=== PATIENT | female | born 1935 | race Caucasian/White ===

== ENCOUNTER → 2016-10-11 | Outpatient (CLI) | payer MEDICARE, OTHER ==
[~2016-10-11] MED LIST: ASCO500C14; ASP325TEC; BARIUM SUSPENSION 2.1% (VANILLA SILQ) 450 ML PO ONE; CALC-793; CATHETER FLUSH 10 ML SYR IV PRN; CIPR500S2 PO; DONE5TAB30; ENAL5TAB PO; ERGO400C; IOHEXOL 350 MG/ML 100 ML (OMNIPAQUE 350) VIAL IV ONE; MULT1CAP27 PO; NF-ESOM40C; NFAMINITAB; NFNEB10T; NS 100 ML (IVPB) BAG IV ONE; OMEG1CAP51; SIMV40TA2; SIMV40TA4 PO; SPRN25T
--- OUTSIDE RECORDS SUMMARY | 2016-10-11 07:53 | XMS REPORT | Continuity of Care Document ---
Author Author [facility] Organization [facility] Address Unknown Phone Unavailable Allergies Active Description Code Type Severity Reaction Onset Reported/Identified Relationship to Patient Clinical Status Yes No Known Drug Allergies [id number] Drug Allergy Unknown N/ A 09/21/2008 Medications [...] V76.12 07/27/2014 Ot V10.79 07/27/2014 GENE SESAY SKILLED NURSING FACILITY COUNSELOR Ot 272.4 07/27/2014 GENE SESAY SKILLED NURSING FACILITY COUNSELOR Ot 414.01 07/27/2014 GIOVANNA SPENCER, MATT Pérez [...] V76.12 10/06/2015 Ot V10.79 10/06/2015 GENE SESAY SKILLED NURSING FACILITY COUNSELOR Ot 272.4 10/06/2015 GENE SESAY SKILLED NURSING FACILITY COUNSELOR Ot 414.01 10/06/2015 MATT HEREDIA MD Ot [...] STEINBERG-SMITH PA, DENNIS K Ot 433.10 10/06/2015 STIENBERG-SMITH PA, DENNIS K Ot 272.4 10/06/2015 STEINBERG-SMITH [...] BAL Hollingsworth Ot I10 10/29/2015 NADEGE SPENCER, ABL Hollingsworth Ot I25.10 10/29/2015 NADEGE SPENCER, BAL Hollingsworth Ot I48.0 05/03/2016 DENNIS ERNANDEZ Ot E78.2 MIXED HYPERLIPIDEMIA 05/03/2016 DENNIS ERNANDEZ Ot I10 ESSENTIAL (PRIMARY) HYPERTENSION 05/03/2016 DENNIS ERNANDEZ Ot I25.10 ATHSCL HEART DISEASE OF [place] CORONARY 05/03/2016 DENNIS ERNANDEZ Ot I65.23 OCCLUSION AND STENOSIS OF [place] 05/11/2016 MANISHA MAYFIELD Ot C83.30 DIFFUSE LARGE B-CELL LYMPHOMA, UNSPECIFI 05/24/2016 DENNIS ERNANDEZ Ot E78.2 MIXED HYPERLIPIDEMIA 05/24/2016 DENNIS ERNANDEZ Ot I10 ESSENTIAL (PRIMARY) HYPERTENSION 05/24/2016 DENNIS ERNANDEZ Ot I25.10 ATHSCL HEART DISEASE OF [place] CORONARY 05/24/2016 DENNIS ERNANDEZ Ot I65.23 OCCLUSION [...] MD Ot I25.10 ATHSCL HEART DISEASE OF [place] CORONARY 06/05/2016 BAL LIGHT MD Ot I48.0 PAROXYSMAL ATRIAL FIBRILLATION 06/05/2016 MANISHA MAYFIELD Ot C83.30 DIFFUSE LARGE B-CELL LYMPHOMA, UNSPECIFI 06/05/2016 DENNIS ERNANDEZ Ot E78.2 MIXED HYPERLIPIDEMIA 06/05/2016 DENNIS ERNANDEZ Ot I10 ESSENTIAL (PRIMARY) HYPERTENSION 06/05/2016 DENNIS ERNANDEZ Ot I25.10 ATHSCL HEART DISEASE OF [place] CORONARY 06/05/2016 DENNIS ERNANDEZ Ot I65.23 OCCLUSION AND STENOSIS OF [place] 06/06/2016 DENNIS ERNANDEZ Ot E78.2 MIXED HYPERLIPIDEMIA 06/06/2016 DENNIS ERNANDEZ Ot I10 ESSENTIAL (PRIMARY) HYPERTENSION 06/06/2016 DENNIS ERNANDEZ Ot I25.10 ATHSCL HEART DISEASE OF [place] CORONARY 06/06/2016 DENNIS ERNANDEZ Ot I65.23 OCCLUSION AND STENOSIS OF [place] 06/11/2016 DENNIS ERNANDEZ Ot E78.2 MIXED HYPERLIPIDEMIA 06/11/2016 DENNIS ERNANDEZ Ot I10 ESSENTIAL (PRIMARY) HYPERTENSION 06/11/2016 DENNIS ERNANDEZ Ot I25.10 ATHSCL HEART DISEASE OF [place] CORONARY 06/11/2016 DENNIS ERNANDEZ Ot I65.23 OCCLUSION AND STENOSIS OF [place] 06/12/2016 DENNIS ERNANDEZ Ot E78.2 MIXED HYPERLIPIDEMIA 06/12/2016 DENNIS ERNANDEZ K Ot I10 ESSENTIAL (PRIMARY) HYPERTENSION 06/12/2016 DENNIS ERNANDEZ Ot I25.10 ATHSCL HEART DISEASE OF [place] CORONARY 06/12/2016 DENNIS ERNANDEZ Ot I65.23 OCCLUSION AND STENOSIS OF [place] 06/13/2016 MANISHA MAYFIELD Ot C83.30 DIFFUSE LARGE B-CELL LYMPHOMA, UNSPECIFI 06/27/2016 DENNIS ERNANDEZ Ot E78.2 MIXED HYPERLIPIDEMIA 06/27/2016 DENNIS ERNANDEZ Ot I10 ESSENTIAL (PRIMARY) HYPERTENSION 06/27/2016 DENNIS ERNANDEZ Ot I25.10 ATHSCL HEART DISEASE OF [place] CORONARY 06/27/2016 DENNIS ERNANDEZ Ot I65.23 OCCLUSION [...] ERNANDEZ Ot I25.10 ATHSCL HEART DISEASE OF [place] CORONARY 07/18/2016 DENNIS ERNANDEZ Ot I65.23 OCCLUSION AND STENOSIS OF [place] 07/21/2016 GIOVANNA SPENCER, MATT Pérez Ot R41.3 OTHER AMNESIA 08/15/2016 MATT HEREDIA MD Ot R41.3 OTHER AMNESIA 09/20/2016 MANISHA MAYFIELD Dom Ot C83.30 DIFFUSE LARGE B-CELL LYMPHOMA, UNSPECIFI 09/26/2016 TRAN MANISHA Fernandes Ot C83.30 DIFFUSE LARGE B-CELL LYMPHOMA, UNSPECIFI Procedures Results Encounters ACCT No. Visit Date/Time Discharge Status Pt. Type Provider Facility Loc./Unit Complaint [id number] 04/03/2016 13:39:00 2015 00:01:00 DIS Outpatient MANISHA MAYFIELD [facility] ONC [id number] 10/13/2015 12:26:00 2015 13:44:00 DIS Emergency WESLEY DOMELISSAR L [facility] ER COUGH/COLD SYMPTOMS [id number] 12/09/2014 07:34:00 2014 23:59:59 CLS Outpatient DENNIS ERNANDEZ [facility] LAB HLP [id number] 09/28/2014 07:48:00 2014 23:59:59 CLS Outpatient DENNIS ERNANDEZ [facility] CARD CAD,HTN,HLP [id number] 09/22/2014 08:08:00 2014 23:59:59 CLS Outpatient DENNIS ERNANDEZ [facility] CARD CAD,HTN,HLP [id number] 07/28/2014 07:25:00 2013 23:59:59 CLS Outpatient MATT HEREDIA MD [facility] RAD SCREENING [id number] 12/04/2013 07:26:00 2013 23:59:59 CLS Outpatient DENNIS ERNANDEZ [facility] LAB [id number] 07/22/2013 06:46:00 2012 23:59:59 CLS Outpatient MATT HEREDIA MD [facility] RAD [id number] 12/24/2012 07:24:00 2012 23:59:59 CLS Outpatient SESAY GENE Jhon KING [facility] LAB [id number] 10/04/2016 09:44:00 ACT Outpatient MANISHA MAYFIELD [facility] ONC [id number] 06/30/2016 09:25:00 ACT Outpatient MATT HEREDIA MD [facility] RAD MEMORY DIFFICULTIES [id number] 06/05/2016 07:49:00 ACT Outpatient DENNIS ALVARES [facility] CARD CAD, CAROTID ARTERY DISEASE [id number] 05/02/2016 10:50:00 ACT Outpatient DENNIS ALVARES [facility] CARD CAD,CAROTID ARTERY STENOSIS [id number] 10/06/2015 07:37:00 ACT Outpatient BAL LIGHT MD [facility] LAB AF,CAD,HYPERLIPIDEMIA,HYPERTENSION [id number] 08/02/2015 09:37:00 ACT Outpatient MATT HEREDIA MD [facility] RAD ROUTINE MAMMOGRAM SCREENING [id number] 07/27/2014 11:22:00 Document Registration [id number] 10/25/2012 10:16:00 Document Registration [id number] 06/25/2012 08:41:00 Document Registration [id number] 06/20/2012 07:38:00 Document Registration [id number] 05/02/2012 11:26:00 Document Registration [id number] 12/12/2011 11:32:00 Document Registration [id number] 12/04/2011 09:31:00 Document Registration [id number] 11/21/2011 08:23:00 Document Registration [id number] 10/31/2011 07:46:00 Document Registration [id number] 06/30/2011 06:54:00 Document Registration [id number] 06/02/2011 07:25:00 Document Registration [id number] 05/22/2011 07:13:00 Document Registration [id number] 03/04/2011 09:38:00 Document Registration [id number] 02/24/2011 09:07:00 Document Registration [id number] 02/06/2011 08:15:00 Document Registration [id number] 12/05/2010 07:25:00 Document Registration [id number] 06/10/2010 07:03:00 Document Registration [id number] 05/30/2010 09:25:00 Document Registration [id number] 11/22/2009 08:34:00 Document Registration [id number] 06/14/2009 07:39:00 Document Registration [id number] 05/31/2009 07:52:00 Document Registration [id number] 03/08/2009 08:48:00 Document Registration [id number] 02/25/2009 07:07:00 Document Registration
--- NOTE | 2016-10-11 10:29 | Diagnostic Imaging Report ---
PROCEDURE: CT chest, abdomen, and pelvis with contrast. TECHNIQUE: Multiple contiguous axial images were obtained through the chest, abdomen, and pelvis after the administration of intravenous contrast. INDICATION: Non-Hodgkin's lymphoma. COMPARISON: There are no previous CT chest examinations available for comparison. FINDINGS: The images through the thorax show that the heart is enlarged and that there are coronary artery calcifications. The ascending aorta is prominent but not aneurysmally dilated. The ascending aorta measures 3.7 x 3.9 cm maximum transverse and AP diameters. There is no sign of dissection. There is no defect within the pulmonary arteries to indicate a pulmonary embolus either. There are a few small lymph nodes in each axilla and in the mediastinum. These lymph nodes are not pathologically enlarged. The largest lymph node in the axilla measures approximately 1.5 cm in maximum length. The lungs are clear. There is no sign of failure, pneumonia or pleural effusion. There is no parenchymal lung mass identified either. The thyroid gland was not visualized in its entirety. Where visualized, the thyroid gland is unremarkable. There is no obvious breast mass. The sections through the abdomen and pelvis show that the liver is of lower density than usually seen. This appearance does suggest fatty metamorphosis and the appearance of the liver is similar to the prior CT abdomen/pelvis exam of 03/04/2011. The spleen, pancreas, gallbladder, kidneys, aorta and inferior vena cava are unremarkable for an acute abnormality. As noted on the prior exam, there is a 2 cm cyst along the anterior aspect of the right kidney. There also appear to be a few other smaller cysts in both kidneys. There is also a 1.0 x 1.2 cm area of low density associated with the right adrenal gland. This is unchanged when compared the previous study. The left adrenal gland is unremarkable. The stomach is filled with oral contrast and consequently difficult to assess. The appendix was visualized and does not seem to be abnormally thickened. The uterus is surgically absent. The urinary bladder is grossly unremarkable. The previous exam did note numerous small (1 cm or less) nodes. On this study, there are now a few slightly enlarged periaortic nodes posterior to the infrarenal abdominal aorta on the left. The largest of these nodes measures approximately 0.9 x 1.7 cm. The nose along the pelvic sidewalls also seem more prominent than on the prior exam. Increase in the size of these nodes is worrisome for recurrent malignancy. PET/CT would be recommended for further evaluation. The bone windows show no evidence for a fracture or for destructive lesion. IMPRESSION: 1. There has been an increase in the adenopathy in the periaortic region and along both pelvic sidewalls. These findings are worrisome for recurrent malignancy. PET CT would be recommended for further evaluation. 2. There is no acute abnormality of the chest, abdomen or pelvis. These results were discussed with Dr. Durham. Dictated by: Dictated on workstation # [id number]
== END ==
LOC: RAD 07:49
PROVIDERS: ATTEND Internal Medicine Hematology & Oncology
DX: C82.91 Follicular lymphoma, unspecified, lymph nodes of head, face, and neck (principal)
CPT/HCPCS: 71260; 74177

== ENCOUNTER → 2016-11-20 | Outpatient (CLI) | payer MEDICARE, OTHER ==
[~2016-11-20] MED LIST changes: -BARIUM SUSPENSION 2.1% (VANILLA SILQ) 450 ML PO ONE; -CATHETER FLUSH 10 ML SYR IV PRN; -IOHEXOL 350 MG/ML 100 ML (OMNIPAQUE 350) VIAL IV ONE; -NS 100 ML (IVPB) BAG IV ONE
--- NOTE | 2016-11-20 09:47 | Diagnostic Imaging Report ---
INDICATION: Cough, fatigue. TECHNIQUE: 2-view chest 9:26 AM. CORRELATION STUDY: 10/13/2015. FINDINGS: Heart size borderline enlarged. Tortuous course of the thoracic aorta. Pulmonary vasculature within normal limits. The lungs are clear with no consolidating infiltrate. There is no significant pleural effusion or pneumothorax. Visualized osseous structures are unremarkable. IMPRESSION: No radiographic evidence for acute abnormality of the chest. Dictated by: Dictated on workstation # [id number]
== END ==
LOC: RAD 09:00
PROVIDERS: ATTEND Internal Medicine
DX: R05 Cough (principal); R53.83 Other fatigue
CPT/HCPCS: 71020

== ENCOUNTER 2016-11-27 17:42 | Emergency (ER) | payer MEDICARE, OTHER ==
[~2016-11-27] VITALS: Ht 157.5 cm; Wt 60.8 kg
[~2016-11-27 17:42] MED LIST changes: -DONE5TAB30
[2016-11-27] MEDS ORDERED: DONE5TAB30 (19:38)
[2016-11-27 19:42] VITALS: BP 189/83
[2016-11-27] MEDS ORDERED: MECLIZINE 25 MG (ANTIVERT) TAB PO ONE (19:45)
--- NOTE | 2016-11-27 20:19 | Diagnostic Imaging Report ---
INDICATION: Dizziness and congestion PA and lateral chest obtained at 8:16 p.m. Heart and mediastinal silhouette are normal in appearance. The lungs are clear. There is no pneumothorax or pleural fluid. IMPRESSION: No acute process in the chest. Dictated by: Dictated on workstation # [id number]
[2016-11-27] MEDS ORDERED: NS IV 1000 ML 1,000 ML IV ONE (20:21)
[2016-11-27 20:41] LABS: BASOPHILS % (AUTO) 0 % (0-10); EOSINOPHILS # (AUTO) 0.1 10^3/uL (0.0-0.3); EOSINOPHILS % (AUTO) 0 % (0-10); LYMPHOCYTES % (AUTO) 61 % (12-44); MEAN CORPUSCULAR HEMOGLOBIN 28 PG (25-34); MEAN CORPUSCULAR HGB CONC 34 G/DL (32-36); MEAN CORPUSCULAR VOLUME 84 FL (80-99); MEAN PLATELET VOLUME 11.7 FL (7.4-10.4); MONOCYTES # (AUTO) 0.5 X 10^3 (0.0-1.0); MONOCYTES % (AUTO) 3 % (0-12); NEUTROPHILS # (AUTO) 5.9 X 10^3 (1.8-7.8); NEUTROPHILS % (AUTO) 36 % (42-75); RED BLOOD COUNT 4.33 10^6/uL (4.35-5.85); WHITE BLOOD COUNT 16.4 10^3/uL (4.3-11.0)
--- NOTE | 2016-11-27 20:42 | ED Neurological Problem ---
General Chief Complaint: Dizziness/Syncope Stated Complaint: CONGESTION,DIZZINESS Nursing Triage Note: PT HERE WITH C/O DIZZINESS AND CONGESTION THAT STATRED TODAY. PT HAS HAD PNA FOR 2 WEEKS AND HAS BEEN TREATED THE PAST 2 WEEKS. PT REPORTS TAKING HER DONEPEZIL AT THE WRONG TIME TODAY AND THINKS THIS IS WHAT HER PROBLEM IS. Nursing Sepsis Screen: No Definite Risk Source: patient, family (son) Exam Limitations: no limitations History of Present Illness Time seen by provider: 20:15 Initial Comments 81-year-old female patient presents to the emergency department with complaints of dizziness beginning earlier today. Patient reportedly took her Aricept this a.m. instead of at bed time. Also complains of chest congestion. States she has been treated with 2 different antibiotics over the last 2 weeks for pneumonia. Was seen by Dr. Caldwell earlier today for pneumonia follow-up. Was doing much better today until taking her aricept. Timing/Duration: other (8-10 hours) Allergies and Home Medications Allergies Coded Allergies: No Known Drug Allergies (Verified , 09/21/08) Home Medications Aspirin 325 Mg Tabec, (Reported) Calcium/Vitamin D 1 Tab Tablet, (Reported) Cholecalciferol 400 Unit Capsule, (Reported) Donepezil HCl 5 Mg Tablet, #30 (Reported) Enalapril Maleate 5 Mg Tablet, 5 MG PO DAILY, (Reported) Esomeprazole Mag Trihydrate 40 Mg Capsule., (Reported) Multivitamins 1 Each Capsule, 1 EACH PO DAILY, (Reported) Nebivolol Hcl 10 Mg Tablet, (Reported) Tyler-3 Fatty Acids/Fish Oil 1 Each Capsule, (Reported) Simvastatin 40 Mg Tablet, (Reported) Spironolactone 25 Mg Tablet, (Reported) Constitutional: No chills, No diaphoresis, dizziness, No fever, No malaise, No weakness Eyes: No Symptoms Reported Ears, Nose, Mouth, Throat: denies ear pain (patient does c/o tinnitus.), denies ear discharge, denies nose pain, denies nose discharge, denies mouth pain , denies throat pain Respiratory: cough, No dyspnea on exertion, No orthopnea, phlegm, No short of breath, No wheezing Cardiovascular: No chest pain, No palpitations, No syncope Gastrointestinal: No abdominal pain, No diarrhea, No nausea, No vomiting Genitourinary: no symptoms reported Musculoskeletal: no symptoms reported Skin: no symptoms reported Psychiatric/Neurological: Denies Cognitive Dysfunction, Denies Headache, Denies Numbness, Denies [place] Seizures, Denies Tingling, Denies Tonic Clonic Seizures, Denies Unable to Move Lower Ext, Denies Unable to Move Upper Ext, Denies Weakness All Other Systems Reviewed Negative Unless Noted: Yes (Negative excepted noted.) Past Dmofyaj-Byeczh-Owgxzu Hx Patient Social History Alcohol Use: Denies Use Recreational Drug Use: No Smoking Status: Never a Smoker 2nd Hand Smoke Exposure: No Recent Foreign Travel: No Contact w/Someone Who Travel: No Recent Infectious Disease Expo: No Recent Hopitalizations: No Seasonal Allergies Seasonal Allergies: No Surgeries HX Surgeries: Yes (LYMPHOMA CA 2004) Respiratory Hx Respiratory Disorders: Yes Respiratory Disorders: Pneumonia Cardiovascular Hx Cardiac Disorders: Yes Cardiac Disorders: High Cholesterol, Hypertension Neurological Hx Neurological Disorders: Yes Neurological Disorders: Dementia Reproductive System Hx Reproductive Disorders: Yes (CYSTOCELE, UTEROVAGINAL PROLAPSE) Genitourinary Hx Genitourinary Disorders: Yes (CYSTOCELE, UTEROVAGINAL PROLAPSE) Gastrointestinal Hx Gastrointestinal Disorders: Yes Gastrointestinal Disorders: Gastroesophageal Reflux Musculoskeletal Hx Musculoskeletal Disorders: No Endocrine Hx Endocrine Disorders: No HEENT HX ENT Disorders: Yes Cancer Hx Cancer: Yes Cancer: Lymphoma Psychosocial Hx Psychiatric Problems: No Blood Transfusions Hx Blood Disorders: No Reviewed Nursing Assessment Reviewed/Agree w Nursing PMH: Yes Family Medical History Significant Family History: No Pertinent Family Hx Physical Exam Vital Signs Capillary Refill : Less Than 3 Seconds General Appearance: WD/WN, no apparent distress HEENT: PERRL/EOMI, normal ENT inspection, TMs normal, pharynx normal Neck: supple, normal inspection Respiratory: lungs clear, normal breath sounds, no respiratory distress Cardiovascular: normal peripheral pulses, no edema, no murmur, bradycardia Gastrointestinal: normal bowel sounds, non tender, soft, No distended Back: normal inspection Extremities: no pedal edema, normal capillary refill Neurologic/Psychiatric: cloud 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 architect II-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 nml as tested, no motor/sensory deficits, alert, normal mood/affect, oriented x 3 Crainal Nerves: normal hearing, normal speech, PERRL Coordination/Gait: normal finger to nose, normal gait, negative Romberg's sign Motor/Sensory: no motor deficit, no sensory deficit, no pronator drift Skin: normal color, warm/dry Progress/Results/Core Measures Results/Orders Lab Results Laboratory Tests Test 11/27/16 20:30 11/27/16 21:26 Range/Units White Blood Count 16.4 H 4.3-11.0 10^3/uL Red Blood Count 4.33 L 4.35-5.85 10^6/uL Hemoglobin 12.2 11.5-16.0 G/DL Hematocrit 36 35-52 % Mean Corpuscular Volume 84 80-99 FL Mean Corpuscular Hemoglobin 28 25-34 PG Mean Corpuscular Hemoglobin Concent 34 32-36 G/DL Red Cell Distribution Width 13.0 10.0-14.5 % Platelet Count 37 *L 130-400 10^3/uL Mean Platelet Volume 11.7 H 7.4-10.4 FL Neutrophils (%) (Auto) 36 L 42-75 % Lymphocytes (%) (Auto) 61 H 12-44 % Monocytes (%) (Auto) 3 0-12 % Eosinophils (%) (Auto) 0 0-10 % Basophils (%) (Auto) 0 0-10 % Neutrophils # (Auto) 5.9 1.8-7.8 X 10^3 Lymphocytes # (Auto) 10.0 H 1.0-4.0 X 10^3 Monocytes # (Auto) 0.5 0.0-1.0 X 10^3 Eosinophils # (Auto) 0.1 0.0-0.3 10^3/uL Basophils # (Auto) 0.0 0.0-0.1 10^3/uL Sodium Level 129 L 135-145 MMOL/L Potassium Level 4.1 3.6-5.0 MMOL/L Chloride Level 93 L 98-107 MMOL/L Carbon Dioxide Level 22 21-32 MMOL/L Anion Gap 14 5-14 MMOL/L Blood Urea Nitrogen 14 7-18 MG/DL Creatinine 0.83 0.60-1.30 MG/DL Estimat Glomerular Filtration Rate > 60 BUN/Creatinine Ratio 17 Glucose Level 100 70-105 MG/DL Calcium Level 8.8 8.5-10.1 MG/DL Magnesium Level 1.9 1.8-2.4 MG/DL Total Bilirubin 1.0 0.1-1.0 MG/DL Aspartate Amino Transf (AST/SGOT) 17 5-34 U/L Alanine Aminotransferase (ALT/SGPT) 11 0-55 U/L Alkaline Phosphatase 58 40-136 U/L Troponin I < 0.30 <0.30 NG/ML Total Protein 6.7 6.4-8.2 G/DL Albumin 4.3 3.2-4.5 G/DL TSH [place] Testing 1.15 0.35-4.94 UIU/ML Urine Color YELLOW Urine Clarity CLEAR Urine pH 7 5-9 Urine Specific [place] 1.005 L 1.016-1.022 Urine Protein NEGATIVE NEGATIVE Urine Glucose (UA) NEGATIVE NEGATIVE Urine Ketones NEGATIVE NEGATIVE Urine Nitrite NEGATIVE NEGATIVE Urine Bilirubin NEGATIVE NEGATIVE Urine Urobilinogen NORMAL NORMAL MG/DL Urine Leukocyte Esterase 1+ H NEGATIVE Urine RBC (Auto) 1+ H NEGATIVE Urine RBC 2-5 H /HPF Urine WBC RARE /HPF Urine Squamous Epithelial Cells 2-5 /HPF Urine Crystals NONE /LPF Urine Bacteria NEGATIVE /HPF Urine Casts NONE /LPF Urine Mucus NEGATIVE /LPF Urine Culture Indicated NO My Orders Orders - TONY VILLANUEVA PA Meclizine Tablet (Antivert Tablet) (11/27/16 19:45) Chest Pa/Lat (2 View) (11/27/16 19:43) Saline Lock/Iv-Start (11/27/16 20:21) Ekg Tracing (11/27/16 20:21) Ct Head Wo (11/27/16 20:21) Cbc With Automated Diff (11/27/16 20:21) Comprehensive Metabolic Panel (11/27/16 20:21) Magnesium (11/27/16 20:21) Thyroid Analyzer (11/27/16 20:21) Troponin I (11/27/16 20:21) Ua Culture If Indicated (11/27/16 20:21) Ns Iv 1000 Ml (Sodium Chloride 0.9%) (11/27/16 20:21) Medications Given in ED Vital Signs/I&O Blood Pressure Mean: 118 Diagnostic Imaging Diagonstic Imaging: CT Plain Films/CT/US/NM/MRI: head Comments INDICATION: Dizziness Noncontrast brain CT is performed and compared to . There were no extra-axial fluid collections. There is mild atrophic change. There is no acute intracranial hemorrhage or mass effect or midline shift. Ventricles are normal in size for age. There is no focal parenchymal abnormality in the brain. Calvarial windows were unremarkable. Visualized portions of the mastoid air cells and sinuses were clear. IMPRESSION: Mild atrophic change with no acute intracranial abnormality. Dictated on workstation # [id number] Reviewed: Reviewed by Me (radiology report reviewed by me) Diagonstic Imaging: Xray Plain Films/CT/US/NM/MRI: chest Comments INDICATION: Dizziness and congestion PA and lateral chest obtained at 8:16 p.m. Heart and mediastinal silhouette are normal in appearance. The lungs are clear. There is no pneumothorax or pleural fluid. IMPRESSION: No acute process in the chest. Dictated on workstation # [id number] Reviewed: Reviewed by Me (radiology report reviewed by me. ) Departure Communication Progress Notes 2211 Patient case discussed with Dr. Durham. Recommends repeating CBC on with f/u in his office as previously scheduled. 2214 all laboratory findings, diagnostic study findings, and recommendations by Dr. Durham discussed with the patient and family. Plan for discharge to home. Patient instructed to follow-up with Dr. Caldwell's office as an outpatient for recheck. Patient given an outpatient order for repeat lab testing on . All return precautions were discussed with the patient and son as described in the discharge instructions of this report. Both voice understanding and agree with the treatment plan. Impression Impression: Primary Impression: Medication adverse effect Disposition: 01 HOME, SELF-CARE Condition: Improved Departure-Patient Inst. Decision time for Depature: 22:13 Referrals: MANISHA MAYFIELD JOHN D MD (PCP/Family) Primary Care Physician Patient Instructions: Taking Medicines When You're Older, Vertigo (a Type of Dizziness) (DC) Add. Discharge Instructions: All discharge instructions reviewed with patient and/or family. Voiced understanding. Hold Aricept x1 wk. Repeat labs on November 30. He may go to the cancer Center for her lab draw. Follow-up with Dr. Caldwell for recheck. Drink plenty of fluids. Return immediately to the emergency department for worsened dizziness, headache , changes in vision, slurred speech, changes in behavior, shortness of air, chest pain, seizure, vomiting, or any other concerns. TONY VILLANUEVA Nov 27, 2016 20:42
[2016-11-27 20:45] LABS: PLATELET COUNT 37 10^3/uL (130-400)
--- NOTE | 2016-11-27 20:51 | Diagnostic Imaging Report ---
INDICATION: Dizziness Noncontrast brain CT is performed and compared to 06/30/16. There were no extra-axial fluid collections. There is mild atrophic change. There is no acute intracranial hemorrhage or mass effect or midline shift. Ventricles are normal in size for age. There is no focal parenchymal abnormality in the brain. Calvarial windows were unremarkable. Visualized portions of the mastoid air cells and sinuses were clear. IMPRESSION: Mild atrophic change with no acute intracranial abnormality. Dictated by: Dictated on workstation # [id number]
[2016-11-27 21:07] LABS: ALANINE AMINOTRANSFERASE 11 U/L (0-55); ALBUMIN 4.3 G/DL (3.2-4.5); ANION GAP 14 MMOL/L (5-14); ASPARTATE AMINO TRANSFERASE 17 U/L (5-34); BLOOD UREA NITROGEN 14 MG/DL (7-18); BUN/CREATININE RATIO 17; CALCIUM 8.8 MG/DL (8.5-10.1); CARBON DIOXIDE 22 MMOL/L (21-32); CHLORIDE 93 MMOL/L (98-107); CREATININE SERUM 0.83 MG/DL (0.60-1.30); GFR ESTIMATED > 60; GLUCOSE 100 MG/DL (70-105); MAGNESIUM 1.9 MG/DL (1.8-2.4); POTASSIUM 4.1 MMOL/L (3.6-5.0); SODIUM 129 MMOL/L (135-145); TOTAL PROTEIN 6.7 G/DL (6.4-8.2)
[2016-11-27 21:21] VITALS: BP 141/78
[2016-11-27 21:27] LABS: TROPONIN I < 0.30 NG/ML (<0.30)
[2016-11-27 21:35] LABS: BILIRUBIN,URINE NEGATIVE (NEGATIVE); KETONES,URINE NEGATIVE (NEGATIVE); LEUKOCYTE ESTERASE ,URINE 1+ (NEGATIVE); NITRITE,URINE NEGATIVE (NEGATIVE); PH,URINE 7 (5-9); PROTEIN,URINE NEGATIVE (NEGATIVE); UROBILINOGEN,URINE NORMAL (NORMAL)
[2016-11-27 21:50] LABS: WBC,URINE RARE /HPF
[2016-11-27 22:56] VITALS: BP 140/75
== END 2016-11-27 22:57 | disposition home or self-care (01) ==
LOC: EDUNIT# 17:42 → ER 17:44
DX: R42 Dizziness and giddiness (principal); T88.7XXA Unspecified adverse effect of drug or medicament, initial encounter; I10 Essential (primary) hypertension; Z79.82 Long term (current) use of aspirin; Z79.899 Other long term (current) drug therapy
CPT/HCPCS: 36415; 70450; 71020; 80053; 81000; 83735; 84443; 84484; 85025; 85027; 93005; 96360

== ENCOUNTER 2016-12-18 08:08 | Outpatient (RCR) | payer MEDICARE, OTHER ==
--- OUTSIDE RECORDS SUMMARY | 2016-09-25 12:44 | XMS REPORT | Continuity of Care Document ---
Author Author [facility] Organization [facility] Address Unknown Phone Unavailable Allergies Active Description Code Type Severity Reaction Onset Reported/Identified Relationship to Patient Clinical Status Yes No Known Drug Allergies [id number] Drug Allergy Unknown N/ A 09/21/2008 Medications Problems Date Dx Coded Attending Type Code Diagnosis Diagnosed By 02/06/2011 Ot 530.81 02/06/2011 Ot 530.85 02/06/2011 Ot 553.3 02/06/2011 Ot V58.69 02/06/2011 Ot V76.51 03/04/2011 Ot 789.04 07/27/2014 Ot V49.81 07/27/2014 Ot V82.81 07/27/2014 Ot 272.4 07/27/2014 Ot 272.4 07/27/2014 Ot 401.9 07/27/2014 Ot 414.01 07/27/2014 Ot 433.10 07/27/2014 Ot V76.12 07/27/2014 Ot 272.4 07/27/2014 Ot V76.12 07/27/2014 Ot 272.4 07/27/2014 Ot 401.9 07/27/2014 Ot 414.01 07/27/2014 Ot 272.4 07/27/2014 Ot 401.9 07/27/2014 Ot 414.01 07/27/2014 Ot V10.71 07/27/2014 Ot V76.12 07/27/2014 Ot 272.4 07/27/2014 Ot V10.71 07/27/2014 Ot V10.71 07/27/2014 Ot 272.4 07/27/2014 Ot 401.9 07/27/2014 Ot 414.01 07/27/2014 Ot 397.0 07/27/2014 Ot 401.9 07/27/2014 Ot 414.00 07/27/2014 Ot 424.0 07/27/2014 Ot V10.71 07/27/2014 Ot 272.4 07/27/2014 Ot 414.00 07/27/2014 Ot V76.12 07/27/2014 Ot V10.79 07/27/2014 GENE SESAY RAIL SPLITTER Ot 272.4 07/27/2014 GENE SESAY RAIL SPLITTER Ot 414.01 07/27/2014 GIOVANNA SPENCER, MATT Pérez Ot V76.12 07/27/2014 STEINBERG-SMITH PA, DENNIS K Ot 202.80 07/27/2014 STEINBERG-SMITH PA, DENNIS K Ot 272.4 07/27/2014 STEINBERG-SMITH PA, DENNIS K Ot 401.9 07/27/2014 STEINBERG-SMITH PA, DENNIS K Ot 414.00 07/27/2014 STEINBERG-SMITH PA, DENNIS K Ot 427.31 07/27/2014 STEINBERG-SMITH PA, DENNIS K Ot 433.10 07/27/2014 STEINBERG-SMITH PA, DENNIS K Ot 530.85 08/19/2014 GIOVANNA SPENCER, MATT Pérez Ot V76.12 09/22/2014 GIOVANNA SPENCER, MATT Pérez Ot V76.12 09/29/2014 STEINBERG-SMITH PA, DENNIS K Ot 272.4 09/29/2014 STEINBERG-SMITH PA, DENNIS K Ot 401.9 09/29/2014 STEINBERG-SMITH PA, DENNIS K Ot 414.00 09/29/2014 STEINBERG-SMITH PA, DENNIS K Ot 433.10 10/14/2014 STEINBERG-SMITH PA, DENNIS K Ot 272.4 10/14/2014 STEINBERG-SMITH PA, DENNIS K Ot 401.9 10/14/2014 STEINBERG-SMITH PA, DENNIS K Ot 414.00 10/14/2014 STEINBERG-SMITH PA, DENNIS K Ot 433.10 11/13/2014 STEINBERG-SMITH PA, DENNIS K Ot 272.4 11/13/2014 STEINBERG-SMITH PA, DENNIS K Ot 401.9 11/13/2014 STEINBERG-SMITH PA, DENNIS K Ot 414.00 11/13/2014 STEINBERG-SMITH PA, DENNIS K Ot 433.10 01/08/2015 STEINBERG-SMITH PA, DENNIS K Ot 272.4 08/25/2015 GIOVANNA SPENCER, MATT Pérez Ot Z12.31 10/06/2015 Ot V76.12 10/06/2015 Ot 272.4 10/06/2015 Ot 401.9 10/06/2015 Ot 414.01 10/06/2015 Ot 272.4 10/06/2015 Ot 401.9 10/06/2015 Ot 414.01 10/06/2015 Ot V10.71 10/06/2015 Ot V76.12 10/06/2015 Ot 272.4 10/06/2015 Ot V10.71 10/06/2015 Ot V10.71 10/06/2015 Ot 272.4 10/06/2015 Ot 401.9 10/06/2015 Ot 414.01 10/06/2015 Ot 397.0 10/06/2015 Ot 401.9 10/06/2015 Ot 414.00 10/06/2015 Ot 424.0 10/06/2015 Ot V10.71 10/06/2015 Ot 272.4 10/06/2015 Ot 414.00 10/06/2015 Ot V76.12 10/06/2015 Ot V10.79 10/06/2015 GENE SESAY RAIL SPLITTER Ot 272.4 10/06/2015 GENE SESAY RAIL SPLITTER Ot 414.01 10/06/2015 MATT HEREDIA MD Ot V76.12 10/06/2015 ADE PA, DENNIS K Ot 202.80 10/06/2015 ADE PA, DENNIS K Ot 272.4 10/06/2015 ADE PA, DENNIS K Ot 401.9 10/06/2015 STEINBERG-SMITH PA, DENNIS K Ot 414.00 10/06/2015 ADE PA, DENNIS K Ot 427.31 10/06/2015 STEINBERG-SMITH PA, DENNIS K Ot 433.10 10/06/2015 STEINBERG-SMITH PA, DENNIS K Ot 530.85 10/06/2015 STEINBERG-SMITH PA, DENNIS K Ot 272.4 10/06/2015 STEINBERG-SMITH PA, DENNIS K Ot 401.9 10/06/2015 STEINBERG-SMITH PA, DENNIS K Ot 414.00 10/06/2015 STEINBERG-SMITH PA, DENNIS K Ot 433.10 10/06/2015 STEINBERG-SMITH PA, DENNIS K Ot 272.4 10/06/2015 STEINBERG-SMITH PA, DENNIS K Ot 401.9 10/06/2015 DENNIS ERNANDEZ Ot 414.00 10/06/2015 DENNIS ERNANDEZ Ot 433.10 10/06/2015 GIOVANNA SPENCER, MATT Pérez Ot V76.12 10/06/2015 DENNIS ERNANDEZ Ot 272.4 10/06/2015 GIOVANNA SPENCER, MATT Pérez Ot Z12.31 10/13/2015 JESSICA WESLEY DO Ot R09.1 PLEURISY 10/29/2015 NADEGE SPENCER, BAL Hollingsworth Ot E78.5 10/29/2015 NADEGE SPENCER, BAL Hollingsworth Ot I10 10/29/2015 NADEGE SPENCER, BAL Hollingsworth Ot I25.10 10/29/2015 NADEGE SPENCER, BAL Hollingsworth Ot I48.0 05/03/2016 DENNIS ERNANDEZ Ot E78.2 MIXED HYPERLIPIDEMIA 05/03/2016 DENNIS ERNANDEZ Ot I10 ESSENTIAL (PRIMARY) HYPERTENSION 05/03/2016 DENNIS ERNANDEZ Ot I25.10 ATHSCL HEART DISEASE OF [place] CORONARY 05/03/2016 DENNIS ERNANDEZ Ot I65.23 OCCLUSION AND STENOSIS OF [place] 05/11/2016 MANISHA MAYFIELD Ot C83.30 DIFFUSE LARGE B-CELL LYMPHOMA, UNSPECIFI 05/24/2016 DENNIS ERNANDEZ Ot E78.2 MIXED HYPERLIPIDEMIA 05/24/2016 DENNIS ERNANDEZ Ot I10 ESSENTIAL (PRIMARY) HYPERTENSION 05/24/2016 DENNIS ERNANDEZ Ot I25.10 ATHSCL HEART DISEASE OF [place] CORONARY 05/24/2016 DENNIS ERNANDEZ Ot I65.23 OCCLUSION AND STENOSIS OF [place] 06/05/2016 DENNIS ERNANDEZ Ot 272.4 HYPERLIPIDEMIA NEC/NOS 06/05/2016 DENNIS ERNANDEZ Ot 401.9 HYPERTENSION NOS 06/05/2016 DENNIS ERNANDEZ Ot 414.00 CORON ATHEROSCLER NOS TYPE VESSEL, NATIV 06/05/2016 DENNIS ERNANDEZ Ot 433.10 CAROTID ARTERY OCCLUSION W O CEREBRAL IN 06/05/2016 DENNIS ERNANDEZ Ot 272.4 HYPERLIPIDEMIA NEC/NOS 06/05/2016 DENNIS ERNANDEZ Ot 401.9 HYPERTENSION NOS 06/05/2016 DENNIS ERNANDEZ Ot 414.00 CORON ATHEROSCLER NOS TYPE VESSEL, NATIV 06/05/2016 DENNIS ERNANDEZ Ot 433.10 CAROTID ARTERY OCCLUSION W O CEREBRAL IN 06/05/2016 GIOVANNA SPENCER, MATT Pérez Ot V76.12 OTH SCREEN MAMMO-MALIGN NEOPLASM OF [place] 06/05/2016 DENNIS ERNANDEZ Ot 272.4 HYPERLIPIDEMIA NEC/NOS 06/05/2016 MATT HEREDIA MD Ot Z12.31 ENCNTR SCREEN MAMMOGRAM FOR MALIGNANT NE 06/05/2016 BAL LIGHT MD Ot E78.5 HYPERLIPIDEMIA, UNSPECIFIED 06/05/2016 BAL LIGHT MD Ot I10 ESSENTIAL (PRIMARY) HYPERTENSION 06/05/2016 BAL LIGHT MD Ot I25.10 ATHSCL HEART DISEASE OF [place] CORONARY 06/05/2016 BAL LIGHT MD Ot I48.0 PAROXYSMAL ATRIAL FIBRILLATION 06/05/2016 MANISHA MAYFIELD Ot C83.30 DIFFUSE LARGE B-CELL LYMPHOMA, UNSPECIFI 06/05/2016 DENNIS ERNANDEZ Ot E78.2 MIXED HYPERLIPIDEMIA 06/05/2016 DENNIS ERNANDEZ Ot I10 ESSENTIAL (PRIMARY) HYPERTENSION 06/05/2016 DENNIS ERNANDEZ Ot I25.10 ATHSCL HEART DISEASE OF [place] CORONARY 06/05/2016 DENNIS ERNANDEZ Ot I65.23 OCCLUSION AND STENOSIS OF [place] 06/06/2016 DENNIS ERNANDEZ Ot E78.2 MIXED HYPERLIPIDEMIA 06/06/2016 DENNIS ERNANDEZ Ot I10 ESSENTIAL (PRIMARY) HYPERTENSION 06/06/2016 DENNIS ERNANDEZ Ot I25.10 ATHSCL HEART DISEASE OF [place] CORONARY 06/06/2016 DENNIS ERNANDEZ Ot I65.23 OCCLUSION AND STENOSIS OF [place] 06/11/2016 DENNIS ERNANDEZ Ot E78.2 MIXED HYPERLIPIDEMIA 06/11/2016 DENNIS ERNANDEZ Ot I10 ESSENTIAL (PRIMARY) HYPERTENSION 06/11/2016 DENNIS ERNANDEZ Ot I25.10 ATHSCL HEART DISEASE OF [place] CORONARY 06/11/2016 DENNIS ERNANDEZ Ot I65.23 OCCLUSION AND STENOSIS OF [place] 06/12/2016 DENNIS ERNANDEZ Ot E78.2 MIXED HYPERLIPIDEMIA 06/12/2016 DENNIS ERNANDEZ K Ot I10 ESSENTIAL (PRIMARY) HYPERTENSION 06/12/2016 DENNIS ERNANDEZ Ot I25.10 ATHSCL HEART DISEASE OF [place] CORONARY 06/12/2016 DENNIS ERNANDEZ Ot I65.23 OCCLUSION AND STENOSIS OF [place] 06/13/2016 MANISHA MAYFIELD Ot C83.30 DIFFUSE LARGE B-CELL LYMPHOMA, UNSPECIFI 06/27/2016 DENNIS ERNANDEZ Ot E78.2 MIXED HYPERLIPIDEMIA 06/27/2016 DENNIS ERNANDEZ Ot I10 ESSENTIAL (PRIMARY) HYPERTENSION 06/27/2016 DENNIS ERNANDEZ Ot I25.10 ATHSCL HEART DISEASE OF [place] CORONARY 06/27/2016 DENNIS ERNANDEZ Ot I65.23 OCCLUSION AND STENOSIS OF [place] 06/30/2016 GIOVANNA SPENCER, MATT Pérez Ot R41.3 OTHER AMNESIA 06/30/2016 GIOVANNA SPENCER, MATT Pérez Ot R41.3 OTHER AMNESIA 07/02/2016 MANISHA MAYFIELD Ot C83.30 DIFFUSE LARGE B-CELL LYMPHOMA, UNSPECIFI 07/03/2016 MANISHA MAYFIELD Ot C83.30 DIFFUSE LARGE B-CELL LYMPHOMA, UNSPECIFI 07/03/2016 GIOVANNA SPENCER, MATT Pérez Ot R41.3 OTHER AMNESIA 07/06/2016 GIOVANNA SPENCER, MATT Pérez Ot R41.3 OTHER AMNESIA 07/18/2016 DENNIS ERNANDEZ Ot E78.2 MIXED HYPERLIPIDEMIA 07/18/2016 DENNIS ERNANDEZ K Ot I10 ESSENTIAL (PRIMARY) HYPERTENSION 07/18/2016 DENNIS ERNANDEZ Ot I25.10 ATHSCL HEART DISEASE OF [place] CORONARY 07/18/2016 DENNIS ERNANDEZ Ot I65.23 OCCLUSION AND STENOSIS OF [place] 07/21/2016 GIOVANNA SPENCER, MATT Pérez Ot R41.3 OTHER AMNESIA 08/15/2016 MATT HEREDIA MD Ot R41.3 OTHER AMNESIA 09/20/2016 MANISHA MAYFIELD Dom Ot C83.30 DIFFUSE LARGE B-CELL LYMPHOMA, UNSPECIFI Procedures Results Encounters ACCT No. Visit Date/Time Discharge Status Pt. Type Provider Facility Loc./Unit Complaint [id number] 04/03/2016 13:39:00 2015 00:01:00 DIS Outpatient MANISHA MAYFIELD [facility] ONC [id number] 10/13/2015 12:26:00 2015 13:44:00 DIS Emergency WESLEY JESSICA ESCALANTE [facility] ER COUGH/COLD SYMPTOMS [id number] 12/09/2014 07:34:00 2014 23:59:59 CLS Outpatient DENNIS ERNANDEZ [facility] LAB HLP [id number] 09/28/2014 07:48:00 2014 23:59:59 CLS Outpatient DENNIS ERNANDEZ [facility] CARD CAD,HTN,HLP [id number] 09/22/2014 08:08:00 2014 23:59:59 CLS Outpatient DENNIS ERNANDEZ [facility] CARD CAD,HTN,HLP [id number] 07/28/2014 07:25:00 2013 23:59:59 CLS Outpatient MATT HEREDIA MD [facility] RAD SCREENING [id number] 12/04/2013 07:26:00 2013 23:59:59 CLS Outpatient DENNIS ERNANDEZ [facility] LAB [id number] 07/22/2013 06:46:00 2012 23:59:59 CLS Outpatient MATT HEREDIA MD [facility] RAD [id number] 12/24/2012 07:24:00 2012 23:59:59 CLS Outpatient GENE SESAYP [facility] LAB [id number] 07/03/2016 00:09:00 PEN Preadmit MANISHA MAYFIELD [facility] ONC [id number] 06/30/2016 09:25:00 ACT Outpatient MATT HEREDIA MD [facility] RAD MEMORY DIFFICULTIES [id number] 06/05/2016 07:49:00 ACT Outpatient DENNIS ALVARES [facility] CARD CAD, CAROTID ARTERY DISEASE [id number] 05/02/2016 10:50:00 ACT Outpatient DENNIS ALVARES [facility] CARD CAD,CAROTID ARTERY STENOSIS [id number] 10/06/2015 07:37:00 ACT Outpatient NADEGE SPENCER, BAL Hollingsworth [facility] LAB AF,CAD,HYPERLIPIDEMIA,HYPERTENSION [id number] 08/02/2015 09:37:00 ACT Outpatient MATT HEREDIA MD [facility] RAD ROUTINE MAMMOGRAM SCREENING [id number] 07/27/2014 11:22:00 Document Registration [id number] 10/25/2012 10:16:00 Document Registration [id number] 06/25/2012 08:41:00 Document Registration [id number] 06/20/2012 07:38:00 Document Registration [id number] 05/02/2012 11:26:00 Document Registration [id number] 12/12/2011 11:32:00 Document Registration [id number] 12/04/2011 09:31:00 Document Registration [id number] 11/21/2011 08:23:00 Document Registration [id number] 10/31/2011 07:46:00 Document Registration [id number] 06/30/2011 06:54:00 Document Registration [id number] 06/02/2011 07:25:00 Document Registration [id number] 05/22/2011 07:13:00 Document Registration [id number] 03/04/2011 09:38:00 Document Registration [id number] 02/24/2011 09:07:00 Document Registration [id number] 02/06/2011 08:15:00 Document Registration [id number] 12/05/2010 07:25:00 Document Registration [id number] 06/10/2010 07:03:00 Document Registration [id number] 05/30/2010 09:25:00 Document Registration [id number] 11/22/2009 08:34:00 Document Registration [id number] 06/14/2009 07:39:00 Document Registration [id number] 05/31/2009 07:52:00 Document Registration [id number] 03/08/2009 08:48:00 Document Registration [id number] 02/25/2009 07:07:00 Document Registration
[2016-09-25 13:18] LABS: BASOPHILS % (AUTO) 0 % (0-10); EOSINOPHILS # (AUTO) 0.1 10^3/uL (0.0-0.3); EOSINOPHILS % (AUTO) 1 % (0-10); LYMPHOCYTES # (AUTO) 4.4 X 10^3 (1.0-4.0); LYMPHOCYTES % (AUTO) 52 % (12-44); MEAN CORPUSCULAR HEMOGLOBIN 28 PG (25-34); MEAN CORPUSCULAR HGB CONC 33 G/DL (32-36); MEAN CORPUSCULAR VOLUME 86 FL (80-99); MEAN PLATELET VOLUME 10.2 FL (7.4-10.4); MONOCYTES # (AUTO) 0.5 X 10^3 (0.0-1.0); MONOCYTES % (AUTO) 6 % (0-12); NEUTROPHILS # (AUTO) 3.5 X 10^3 (1.8-7.8); NEUTROPHILS % (AUTO) 41 % (42-75); RED BLOOD COUNT 4.47 10^6/uL (4.35-5.85); RED CELL DISTRIBUTION WIDTH 13.5 % (10.0-14.5); WHITE BLOOD COUNT 8.5 10^3/uL (4.3-11.0)
[2016-09-25 13:19] LABS: PLATELET COUNT 33 10^3/uL (130-400)
[2016-09-25 13:46] LABS: ALBUMIN 4.3 G/DL (3.2-4.5); BILIRUBIN,TOTAL 0.6 MG/DL (0.1-1.0); CALCIUM 9.1 MG/DL (8.5-10.1); CREATININE SERUM 0.97 MG/DL (0.60-1.30); POTASSIUM 4.2 MMOL/L (3.6-5.0); TOTAL PROTEIN 6.9 G/DL (6.4-8.2)
[2016-10-03 11:47] LABS: BASOPHILS % (AUTO) 0 % (0-10); EOSINOPHILS # (AUTO) 0.1 10^3/uL (0.0-0.3); EOSINOPHILS % (AUTO) 1 % (0-10); LYMPHOCYTES # (AUTO) 4.5 X 10^3 (1.0-4.0); LYMPHOCYTES % (AUTO) 55 % (12-44); MEAN CORPUSCULAR HEMOGLOBIN 28 PG (25-34); MEAN CORPUSCULAR HGB CONC 33 G/DL (32-36); MEAN CORPUSCULAR VOLUME 86 FL (80-99); MEAN PLATELET VOLUME 11.4 FL (7.4-10.4); MONOCYTES # (AUTO) 0.4 X 10^3 (0.0-1.0); MONOCYTES % (AUTO) 4 % (0-12); NEUTROPHILS # (AUTO) 3.2 X 10^3 (1.8-7.8); NEUTROPHILS % (AUTO) 39 % (42-75); PLATELET COUNT 24 10^3/uL (130-400); RED BLOOD COUNT 4.29 10^6/uL (4.35-5.85); RED CELL DISTRIBUTION WIDTH 13.3 % (10.0-14.5); WHITE BLOOD COUNT 8.2 10^3/uL (4.3-11.0)
[2016-10-04 11:36] LABS: BASOPHILS % (AUTO) 0 % (0-10); EOSINOPHILS # (AUTO) 0.1 10^3/uL (0.0-0.3); EOSINOPHILS % (AUTO) 1 % (0-10); LYMPHOCYTES # (AUTO) 4.4 X 10^3 (1.0-4.0); LYMPHOCYTES % (AUTO) 53 % (12-44); MEAN CORPUSCULAR HEMOGLOBIN 28 PG (25-34); MEAN CORPUSCULAR HGB CONC 33 G/DL (32-36); MEAN CORPUSCULAR VOLUME 85 FL (80-99); MEAN PLATELET VOLUME 11.5 FL (7.4-10.4); MONOCYTES # (AUTO) 0.4 X 10^3 (0.0-1.0); MONOCYTES % (AUTO) 5 % (0-12); NEUTROPHILS # (AUTO) 3.3 X 10^3 (1.8-7.8); NEUTROPHILS % (AUTO) 40 % (42-75); RED BLOOD COUNT 4.43 10^6/uL (4.35-5.85); RED CELL DISTRIBUTION WIDTH 13.3 % (10.0-14.5); RETICULOCYTE % 1.28 % (0.50-2.40); WHITE BLOOD COUNT 8.2 10^3/uL (4.3-11.0)
[2016-10-04 11:38] LABS: PLATELET COUNT 31 10^3/uL (130-400)
[2016-10-04 12:45] LABS: BAND NEUTROPHILS 0 %; BASOPHILS % (MANUAL) 0 %; EOSINOPHILS % (MANUAL) 3 %; LYMPHOCYTES % (MANUAL) 44 %; MICROCYTOSIS SLIGHT; NEUTROPHILS % (MANUAL) 46 %; REACTIVE LYMPHOCYTES 1 %
[2016-10-18 13:11] LABS: BASOPHILS % (AUTO) 0 % (0-10); EOSINOPHILS # (AUTO) 0.1 10^3/uL (0.0-0.3); EOSINOPHILS % (AUTO) 1 % (0-10); LYMPHOCYTES % (AUTO) 56 % (12-44); MEAN CORPUSCULAR HEMOGLOBIN 28 PG (25-34); MEAN CORPUSCULAR HGB CONC 32 G/DL (32-36); MEAN CORPUSCULAR VOLUME 86 FL (80-99); MEAN PLATELET VOLUME 10.5 FL (7.4-10.4); MONOCYTES # (AUTO) 0.4 X 10^3 (0.0-1.0); MONOCYTES % (AUTO) 4 % (0-12); NEUTROPHILS # (AUTO) 3.5 X 10^3 (1.8-7.8); NEUTROPHILS % (AUTO) 39 % (42-75); RED BLOOD COUNT 4.44 10^6/uL (4.35-5.85); RED CELL DISTRIBUTION WIDTH 13.5 % (10.0-14.5)
[2016-10-18 13:12] LABS: PLATELET COUNT 34 10^3/uL (130-400)
[2016-10-18 14:34] LABS: ALBUMIN 4.4 G/DL (3.2-4.5); BILIRUBIN,TOTAL 0.9 MG/DL (0.1-1.0); CALCIUM 9.2 MG/DL (8.5-10.1); CREATININE SERUM 0.92 MG/DL (0.60-1.30); POTASSIUM 3.9 MMOL/L (3.6-5.0); TOTAL PROTEIN 6.9 G/DL (6.4-8.2)
[2016-10-24 12:31] LABS: B CELL CLL BY FISH SEE FOOTNOTE; DIAGNOSIS FOR B CELL CLL D69.6
[2016-10-26 15:12] LABS: BASOPHILS % (AUTO) 0 % (0-10); EOSINOPHILS # (AUTO) 0.1 10^3/uL (0.0-0.3); EOSINOPHILS % (AUTO) 1 % (0-10); LYMPHOCYTES # (AUTO) 4.6 X 10^3 (1.0-4.0); LYMPHOCYTES % (AUTO) 55 % (12-44); MEAN CORPUSCULAR HEMOGLOBIN 28 PG (25-34); MEAN CORPUSCULAR HGB CONC 33 G/DL (32-36); MEAN CORPUSCULAR VOLUME 86 FL (80-99); MEAN PLATELET VOLUME 9.8 FL (7.4-10.4); MONOCYTES # (AUTO) 0.4 X 10^3 (0.0-1.0); MONOCYTES % (AUTO) 5 % (0-12); NEUTROPHILS # (AUTO) 3.2 X 10^3 (1.8-7.8); NEUTROPHILS % (AUTO) 38 % (42-75); PLATELET COUNT 51 10^3/uL (130-400); RED BLOOD COUNT 4.37 10^6/uL (4.35-5.85); RED CELL DISTRIBUTION WIDTH 13.8 % (10.0-14.5); WHITE BLOOD COUNT 8.4 10^3/uL (4.3-11.0)
[2016-11-20 09:54] LABS: BASOPHILS % (AUTO) 0 % (0-10); EOSINOPHILS # (AUTO) 0.1 10^3/uL (0.0-0.3); EOSINOPHILS % (AUTO) 1 % (0-10); LYMPHOCYTES # (AUTO) 3.7 X 10^3 (1.0-4.0); LYMPHOCYTES % (AUTO) 41 % (12-44); MEAN CORPUSCULAR HEMOGLOBIN 29 PG (25-34); MEAN CORPUSCULAR HGB CONC 34 G/DL (32-36); MEAN CORPUSCULAR VOLUME 84 FL (80-99); MONOCYTES # (AUTO) 0.4 X 10^3 (0.0-1.0); MONOCYTES % (AUTO) 4 % (0-12); NEUTROPHILS # (AUTO) 4.9 X 10^3 (1.8-7.8); NEUTROPHILS % (AUTO) 54 % (42-75); PLATELET COUNT 63 10^3/uL (130-400); RED BLOOD COUNT 4.48 10^6/uL (4.35-5.85); RED CELL DISTRIBUTION WIDTH 13.5 % (10.0-14.5)
[2016-11-20 10:55] LABS: ALBUMIN 4.2 G/DL (3.2-4.5); BILIRUBIN,TOTAL 1.1 MG/DL (0.1-1.0); CALCIUM 9.2 MG/DL (8.5-10.1); CREATININE SERUM 1.03 MG/DL (0.60-1.30); POTASSIUM 4.1 MMOL/L (3.6-5.0); TOTAL PROTEIN 7.3 G/DL (6.4-8.2)
[2016-11-30 09:07] LABS: BASOPHILS % (AUTO) 0 % (0-10); EOSINOPHILS # (AUTO) 0.1 10^3/uL (0.0-0.3); EOSINOPHILS % (AUTO) 0 % (0-10); LYMPHOCYTES # (AUTO) 10.5 X 10^3 (1.0-4.0); LYMPHOCYTES % (AUTO) 70 % (12-44); MEAN CORPUSCULAR HEMOGLOBIN 28 PG (25-34); MEAN CORPUSCULAR HGB CONC 33 G/DL (32-36); MEAN CORPUSCULAR VOLUME 86 FL (80-99); MEAN PLATELET VOLUME 12.4 FL (7.4-10.4); MONOCYTES # (AUTO) 0.4 X 10^3 (0.0-1.0); MONOCYTES % (AUTO) 3 % (0-12); NEUTROPHILS # (AUTO) 3.9 X 10^3 (1.8-7.8); NEUTROPHILS % (AUTO) 26 % (42-75); PLATELET COUNT 18 10^3/uL (130-400); RED BLOOD COUNT 4.27 10^6/uL (4.35-5.85); RED CELL DISTRIBUTION WIDTH 13.6 % (10.0-14.5); WHITE BLOOD COUNT 14.9 10^3/uL (4.3-11.0)
[2016-11-30 09:46] LABS: CALCIUM 9.2 MG/DL (8.5-10.1); CREATININE SERUM 0.95 MG/DL (0.60-1.30)
[2016-12-06 09:10] LABS: BASOPHILS % (AUTO) 0 % (0-10); EOSINOPHILS # (AUTO) 0.1 10^3/uL (0.0-0.3); EOSINOPHILS % (AUTO) 1 % (0-10); LYMPHOCYTES # (AUTO) 15.3 X 10^3 (1.0-4.0); LYMPHOCYTES % (AUTO) 70 % (12-44); MEAN CORPUSCULAR HEMOGLOBIN 28 PG (25-34); MEAN CORPUSCULAR HGB CONC 33 G/DL (32-36); MEAN CORPUSCULAR VOLUME 86 FL (80-99); MEAN PLATELET VOLUME 11.9 FL (7.4-10.4); MONOCYTES # (AUTO) 0.6 X 10^3 (0.0-1.0); MONOCYTES % (AUTO) 3 % (0-12); NEUTROPHILS # (AUTO) 5.8 X 10^3 (1.8-7.8); NEUTROPHILS % (AUTO) 27 % (42-75); RED BLOOD COUNT 4.52 10^6/uL (4.35-5.85); RED CELL DISTRIBUTION WIDTH 13.9 % (10.0-14.5); WHITE BLOOD COUNT 21.8 10^3/uL (4.3-11.0)
[2016-12-06 09:11] LABS: PLATELET COUNT 19 10^3/uL (130-400)
[~2016-12-18 08:08] MED LIST changes: +DONE5TAB30; +LIDOCAINE 2% ONE
[2016-12-18 08:33] LABS: BASOPHILS # (AUTO) 0.1 10^3/uL (0.0-0.1); BASOPHILS % (AUTO) 0 % (0-10); EOSINOPHILS # (AUTO) 0.2 10^3/uL (0.0-0.3); EOSINOPHILS % (AUTO) 1 % (0-10); LYMPHOCYTES # (AUTO) 19.8 X 10^3 (1.0-4.0); LYMPHOCYTES % (AUTO) 75 % (12-44); MEAN CORPUSCULAR HEMOGLOBIN 29 PG (25-34); MEAN CORPUSCULAR HGB CONC 33 G/DL (32-36); MEAN CORPUSCULAR VOLUME 87 FL (80-99); MEAN PLATELET VOLUME 11.4 FL (7.4-10.4); MONOCYTES # (AUTO) 0.4 X 10^3 (0.0-1.0); MONOCYTES % (AUTO) 2 % (0-12); NEUTROPHILS # (AUTO) 5.9 X 10^3 (1.8-7.8); NEUTROPHILS % (AUTO) 22 % (42-75); RED BLOOD COUNT 4.49 10^6/uL (4.35-5.85); WHITE BLOOD COUNT 26.4 10^3/uL (4.3-11.0)
[2016-12-18 08:42] LABS: PLATELET COUNT 37 10^3/uL (130-400)
== END 2016-12-24 | disposition home or self-care (01) ==
LOC: ONC 08:08
PROVIDERS: ATTEND Internal Medicine Hematology & Oncology
DX: C83.30 Diffuse large B-cell lymphoma, unspecified site (principal)
CPT/HCPCS: 36415; 38221; 80048; 80053; 80074; 83615; 85007; 85025; 85027; 85045; 88184; 88185; 88305; 88311; 88313; 88368; 88369; 99213

== ENCOUNTER 2017-01-23 09:57 | Emergency (ER) | payer MEDICARE, OTHER ==
[~2017-01-23] VITALS: Ht 157.5 cm; Wt 60.8 kg
[~2017-01-23 09:57] MED LIST changes: -LIDOCAINE 2% ONE
--- NOTE | 2017-01-23 10:52 | ED Back Pain ---
General Chief Complaint: Hip/Pelvic Problems Stated Complaint: L HIP/LEG PAIN Nursing Triage Note: PT CO OF L HIP PAIN THIS AM, STATES GOES DOWN L LEG, DENIES RECENT FALL. STATES PUSH MOWED YARD YESTERDAY AND DID GARDENING Nursing Sepsis Screen: No Definite Risk Source of Information: Patient (SOMEWHAT LIMITED HISTORIAN--PT HAS DEMENTIA), Family (SON) History of Present Illness Time Seen by Provider: 10:20 Initial Comments PT C/O PAIN TO LEFT LOWER BACK, RADIATING DOWN LEFT LEG WOKE UP AT 0300 TODAY WITH PAIN NO RELIEF WITH IBUPROFEN PT FELL OVER A MONTH AGO, BRUISING LEFT CHEEK, BUT DID NOT INJURE BACK OR LEG AND NO INJURIES SINCE THEN PT DID USE A POWER-ASSISTED PUSH MOWER YESTERDAY, BUT IS NORMAL ACTIVITY FOR HER. NO PARESTHESIAS OR MOTOR DEFICITS NO NEW PROBLEMS WITH BOWEL OR BLADDER FUNCTION HAD AN APPOINTMENT AT 10:45 AT [facility] FOR ROUTINE FOLLOW UP, BUT CAME HERE INSTEAD Other Comments PCP: DR. HEREDIA Allergies and Home Medications Allergies Coded Allergies: No Known Drug Allergies (Verified , 09/21/08) Home Medications Aspirin 325 Mg Tabec, (Reported) Calcium/Vitamin D 1 Tab Tablet, (Reported) Cholecalciferol 400 Unit Capsule, (Reported) Donepezil HCl 5 Mg Tablet, #30 (Reported) Enalapril Maleate 5 Mg Tablet, 5 MG PO DAILY, (Reported) Esomeprazole Mag Trihydrate 40 Mg Capsule., (Reported) Multivitamins 1 Each Capsule, 1 EACH PO DAILY, (Reported) Nebivolol Hcl 10 Mg Tablet, (Reported) Hallie-3 Fatty Acids/Fish Oil 1 Each Capsule, (Reported) Simvastatin 40 Mg Tablet, (Reported) Spironolactone 25 Mg Tablet, (Reported) Time Seen by Provider: 10:20 Constitutional: no symptoms reported Respiratory: no symptoms reported Cardiovascular: no symptoms reported Gastrointestinal: no symptoms reported Genitourinary: no symptoms reported Musculoskeletal: see HPI Skin: no symptoms reported Psychiatric/Neurological: No Symptoms Reported Past Isqxnhx-Tjxdoz-Qavuvv Hx Patient Social History Alcohol Use: Denies Use Recreational Drug Use: No Smoking Status: Never a Smoker 2nd Hand Smoke Exposure: No Recent Foreign Travel: No Contact w/Someone Who Travel: No Recent Infectious Disease Expo: No Recent Hopitalizations: No Seasonal Allergies Seasonal Allergies: No Surgeries HX Surgeries: Yes (LYMPHOMA CA 2004) Respiratory Hx Respiratory Disorders: Yes Respiratory Disorders: Pneumonia Cardiovascular Hx Cardiac Disorders: Yes Cardiac Disorders: High Cholesterol, Hypertension Neurological Hx Neurological Disorders: Yes Neurological Disorders: Dementia Reproductive System Hx Reproductive Disorders: Yes (CYSTOCELE, UTEROVAGINAL PROLAPSE) 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: 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 Genitourinary Hx Genitourinary Disorders: Yes (CYSTOCELE, UTEROVAGINAL PROLAPSE) Gastrointestinal Hx Gastrointestinal Disorders: Yes Gastrointestinal Disorders: Gastroesophageal Reflux Musculoskeletal Hx Musculoskeletal Disorders: No Endocrine Hx Endocrine Disorders: No HEENT HX ENT Disorders: Yes Cancer Hx Cancer: Yes Cancer: Lymphoma Psychosocial Hx Psychiatric Problems: No Integumentary HX Skin/Integumentary Disorder: No Blood Transfusions Hx Blood Disorders: No Physical Exam Vital Signs Vital Sign - Last 12Hours 01/23/17 10:05 Temp 97.5 Pulse 66 Resp 18 B/P (MAP) 173/81 Pulse Ox 95 O2 Delivery Room Air Capillary Refill : Less Than 3 Seconds General Appearance: No Apparent Distress, WD/WN, Other (PT WALKS AND MOVES WITHOUT DIFFICULTY. DOES NOT APPEAR TO BE IN ANY DISCOMFORT AT THIS TIME) HEENT: Other (OLD BRUISE TO LEFT CHEEK--PT STATES IS FROM A FALL OVER A MONTH AGO) Cardiovascular: Regular Rate, Rhythm, No JVD, Normal Peripheral Pulses, Systolic Murmur (/) Respiratory: Normal Breath Sounds, No Accessory Muscle Use, No Respiratory Distress Peripheral Pulses: 1+ Dorsalis Pedis (R), 1+ Left Dors-Pedis (L) Gastrointestinal: Non Tender, Soft Back: No CVA Tenderness, Other (TENDERNESS OVER LEFT SI JOINT. 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 II-XII Norm as Tested, Other (DTR'S INTACT) Skin: Normal Color, Warm/Dry, No Rash Progress/Results/Core Measures Results/Orders Lab Results Laboratory Tests Test 01/23/17 11:30 Range/Units My Orders Orders - MIS CASTANON DO Ct Lumbar Spine Wo (01/23/17 10:20) Ua Culture If Indicated (01/23/17 10:20) Ct Pelvis Wo (01/23/17 10:20) Vital Signs/I&O Vital Sign - Last 12Hours 01/23/17 10:05 Temp 97.5 Pulse 66 Resp 18 B/P (MAP) 173/81 Pulse Ox 95 O2 Delivery Room Air Blood Pressure Mean: 111 Departure Impression Impression: Primary Impression: Left-sided low back pain with sciatica Additional Impression: UTI (urinary tract infection) Disposition: HOME, SELF-CARE Condition: Stable Departure-Patient Inst. Referrals: MATT HEREDIA MD (PCP/Family) Primary Care Physician Patient Instructions: Low Back Pain (DC), Sciatica (DC), Urinary Tract Infection, Adult (DC) Add. Discharge Instructions: MOST HEAT TO BACK AT 20 MINUTE INTERVALS FOLLOW UP WITH DR. HEREDIA THIS WEEK FOR FURTHER CARE All discharge instructions reviewed with patient and/or family. Voiced understanding. Scripts Nitrofurantoin Monohyd/M-Cryst (Macrobid 100 mg Capsule) 100 Mg Capsule 100 MG PO BID, #20 CAP Prov: MIS CASTANON DO 01/23/17 Meloxicam (Mobic) 7.5 Mg Tablet 7.5 MG PO DAILY, #10 TAB Prov: MIS CASTANON DO 01/23/17 MIS CASTANON DO Jan 23, 2017 10:52
[2017-01-23] MEDS ORDERED: IOHEXOL 350 MG/ML 100 ML (OMNIPAQUE 350) VIAL IV ONE (11:00)
[2017-01-23] MEDS ORDERED: BARIUM SUSPENSION 2.1% (VANILLA SILQ) 450 ML PO ONE (11:00)
[2017-01-23] MEDS ORDERED: NS 100 ML (IVPB) BAG IV ONE (11:00)
--- NOTE | 2017-01-23 11:27 | Diagnostic Imaging Report ---
PROCEDURE: CT pelvis without contrast. TECHNIQUE: Multiple contiguous axial images were obtained through the pelvis without the use of intravenous contrast. Sagittal and coronal reformations were performed. INDICATION: Left thigh pain. FINDINGS: There is no fracture or dislocation in the hip on either side. There is a subchondral sclerotic changes and subchondral cysts particularly prominent in the left hip compatible with degenerative changes. There is vacuum phenomenon and sclerotic changes of the SI joints compatible with degenerative changes with no fracture or dislocation. Lower lumbar spine degenerative changes are seen. There is a small fat-containing indirect left inguinal hernia with no herniating bowel loops seen. Minimally prominent left inguinal lymph nodes are noted of questionable significance. Scattered diverticula seen in the sigmoid colon with no diverticulitis. IMPRESSION: 1. Degenerative changes in the left hip with no acute process. 2. Sigmoid diverticulosis. No diverticulitis. 3. Small indirect left inguinal hernia containing only omental fat. Dictated by: Dictated on workstation # [id number]
[2017-01-23 11:37] LABS: BILIRUBIN,URINE NEGATIVE (NEGATIVE); KETONES,URINE NEGATIVE (NEGATIVE); LEUKOCYTE ESTERASE ,URINE 2+ (NEGATIVE); NITRITE,URINE NEGATIVE (NEGATIVE); PH,URINE 6 (5-9); PROTEIN,URINE NEGATIVE (NEGATIVE); UROBILINOGEN,URINE NORMAL (NORMAL)
--- NOTE | 2017-01-23 11:38 | Diagnostic Imaging Report ---
PROCEDURE: CT lumbar spine without contrast. TECHNIQUE: Multiple contiguous axial images were obtained through the lumbar spine without the use of intravenous contrast. Sagittal and coronal reformations were then performed. INDICATION: Left hip pain. Back pain. FINDINGS: There is grade 1 retrolisthesis of L2 over L3. The vertebral body heights are preserved. Coronal images demonstrate right convexity scoliosis centered around L2/3 level. There is significant disc height loss at multiple levels around the mid lumbar spine with vacuum disc phenomenon involving L2/3 through L5/S1 discs. Multilevel facet arthropathy in the lower lumbar spine is seen. There is no pars defect at any level. There is suggestion of prominent disc herniation at L2/L3 level with underlying probably mild degree of spinal canal stenosis. There is also suggestion of a mild to moderate spinal canal stenosis at L3/4 and L4/5 levels. The neural foramina demonstrate multilevel significant stenosis. On the left side moderate to severe stenosis is seen at the levels L2/3, and L5/S1 and the moderate stenosis seen at L4/5 and L3/ 4. On the right side there is mild stenosis at the L3/4 and moderate stenosis at L4/5 and L5/S1 foramina. IMPRESSION: There is a grade 1 retrolisthesis of L2 over L3, scoliosis and degenerative disc and facet changes. Mid and lower lumbar spine levels demonstrate spinal canal and foraminal stenosis. This can be better delineated with MRI if needed. Dictated by: Dictated on workstation # [id number]
[2017-01-23] MEDS ORDERED: KETOROLAC 60 MG/2 ML VIAL IM ONE (11:45)
[2017-01-23] MEDS ORDERED: MELO-170 PO (11:48)
[2017-01-23] MEDS ORDERED: NITR-65 PO (11:51)
[2017-01-23 12:08] VITALS: BP 171/85
== END 2017-01-23 12:09 | disposition home or self-care (01) ==
LOC: EDUNIT# 09:57 → ER 09:59
DX: M54.30 Sciatica, unspecified side (principal); I10 Essential (primary) hypertension; N39.0 Urinary tract infection, site not specified; Z79.82 Long term (current) use of aspirin; Z85.72 Personal history of non-Hodgkin lymphomas
CPT/HCPCS: 72131; 72192; 81000; 87088; 99283

== ENCOUNTER 2017-01-27 13:52 | Emergency (ER) | payer MEDICARE, OTHER ==
[~2017-01-27] VITALS: Ht 157.5 cm; Wt 62.6 kg
[~2017-01-27 13:52] MED LIST changes: +MELO-170 PO; +NITR-65 PO
[2017-01-27 16:08] LABS: BILIRUBIN,URINE NEGATIVE (NEGATIVE); KETONES,URINE 1+ (NEGATIVE); LEUKOCYTE ESTERASE ,URINE NEGATIVE (NEGATIVE); NITRITE,URINE NEGATIVE (NEGATIVE); PH,URINE 7 (5-9); PROTEIN,URINE NEGATIVE (NEGATIVE); UROBILINOGEN,URINE NORMAL (NORMAL)
[2017-01-27 16:26] LABS: BASOPHILS % (AUTO) 0 % (0-10); EOSINOPHILS # (AUTO) 0.1 10^3/uL (0.0-0.3); EOSINOPHILS % (AUTO) 1 % (0-10); LYMPHOCYTES # (AUTO) 7.6 X 10^3 (1.0-4.0); LYMPHOCYTES % (AUTO) 64 % (12-44); MEAN CORPUSCULAR HEMOGLOBIN 29 PG (25-34); MEAN CORPUSCULAR HGB CONC 33 G/DL (32-36); MEAN CORPUSCULAR VOLUME 86 FL (80-99); MEAN PLATELET VOLUME 10.7 FL (7.4-10.4); MONOCYTES # (AUTO) 0.4 X 10^3 (0.0-1.0); MONOCYTES % (AUTO) 4 % (0-12); NEUTROPHILS # (AUTO) 3.7 X 10^3 (1.8-7.8); NEUTROPHILS % (AUTO) 31 % (42-75); RED BLOOD COUNT 4.53 10^6/uL (4.35-5.85); WHITE BLOOD COUNT 11.8 10^3/uL (4.3-11.0)
[2017-01-27] MEDS ORDERED: NS IV 1000 ML 1,000 ML IV ONE (16:27)
[2017-01-27 16:30] LABS: PLATELET COUNT 54 10^3/uL (130-400)
[2017-01-27 16:49] LABS: ALBUMIN 4.3 G/DL (3.2-4.5); BILIRUBIN,TOTAL 1.1 MG/DL (0.1-1.0); CALCIUM 9.5 MG/DL (8.5-10.1); CREATININE SERUM 0.92 MG/DL (0.60-1.30); POTASSIUM 4.2 MMOL/L (3.6-5.0); TOTAL PROTEIN 7.1 G/DL (6.4-8.2)
[2017-01-27] MEDS ORDERED: TRAM50TA2 PO (17:56)
--- NOTE | 2017-01-27 17:56 | ED Syncope ---
General Chief Complaint: Dizziness/Syncope Stated Complaint: WEAKNESS/DIZZINESS Nursing Triage Note: pt reports left flank pain radiating down left leg. seen in ed recently, diagnosed with uti along with arthritis et bulging discs. pt reports pain is worsening. also c/o dizziness et feeling light-headed starting 2 hours ago. History of Present Illness Time Seen by Provider: 15:10 Initial Comments evaluation for left flank and lower leg pain. She was evaluated on 01/23/17 in the emergency department. her son reports that he is concerned that her dementia is progressing. She has been eating very little and has lower activity level. Timing/Prior Episodes: Recent History Symptoms Prior to Episode: Confusion Precipitating Factors: None Loss of Consciousness: No Loss of Consciousness Current Symptoms: Back to Normal Allergies and Home Medications Allergies Coded Allergies: No Known Drug Allergies (Verified , 09/21/08) Home Medications Aspirin 325 Mg Tabec, (Reported) Calcium/Vitamin D 1 Tab Tablet, (Reported) Cholecalciferol 400 Unit Capsule, (Reported) Donepezil HCl 5 Mg Tablet, #30 (Reported) Enalapril Maleate 5 Mg Tablet, 5 MG PO DAILY, (Reported) Esomeprazole Mag Trihydrate 40 Mg Capsule., (Reported) Meloxicam 7.5 Mg Tablet, 7.5 MG PO DAILY, #10 Prescribed by: MIS CASTANON on 01/23/17 1148 Multivitamins 1 Each Capsule, 1 EACH PO DAILY, (Reported) Nebivolol Hcl 10 Mg Tablet, (Reported) Nitrofurantoin Monohyd/M-Cryst 100 Mg Capsule, 100 MG PO BID, #20 Prescribed by: MIS CASTANON on 01/23/17 1151 [place]-3 Fatty Acids/Fish Oil 1 Each Capsule, (Reported) Simvastatin 40 Mg Tablet, (Reported) Spironolactone 25 Mg Tablet, (Reported) Tramadol HCl 50 Mg Tablet, 50 MG PO Q8H, #15 Ref 0 Prescribed by: CORNELIA CULLEN on 01/27/17 1756 Constitutional: see HPI, dizziness, weakness EENTM: no symptoms reported, see HPI Respiratory: no symptoms reported, see HPI Cardiovascular: no symptoms reported, see HPI Gastrointestinal: no symptoms reported, see HPI Genitourinary: no symptoms reported, see HPI Musculoskeletal: no symptoms reported, see HPI Skin: no symptoms reported, see HPI Psychiatric/Neurological: No Symptoms Reported, See HPI All Other Systems Reviewed Negative Unless Noted: Yes Past Afwmpim-Erywgf-Ttqggl Hx Patient Social History Alcohol Use: Denies Use Recreational Drug Use: No Smoking Status: Never a Smoker 2nd Hand Smoke Exposure: No Recent Foreign Travel: No Contact w/Someone Who Travel: No Recent Infectious Disease Expo: No Recent Hopitalizations: No Seasonal Allergies Seasonal Allergies: No Surgeries HX Surgeries: Yes (LYMPH[place] 2004) Respiratory Hx Respiratory Disorders: Yes Respiratory Disorders: Pneumonia Cardiovascular Hx Cardiac Disorders: Yes Cardiac Disorders: High Cholesterol, Hypertension Neurological Hx Neurological Disorders: Yes Neurological Disorders: Dementia Reproductive System Hx Reproductive Disorders: Yes (CYSTOCELE, UTEROVAGINAL PROLAPSE) 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 Genitourinary Hx Genitourinary Disorders: Yes (CYSTOCELE, UTEROVAGINAL PROLAPSE) Gastrointestinal Hx Gastrointestinal Disorders: Yes Gastrointestinal Disorders: Gastroesophageal Reflux Musculoskeletal Hx Musculoskeletal Disorders: No Endocrine Hx Endocrine Disorders: No HEENT HX ENT Disorders: Yes Cancer Hx Cancer: Yes Cancer: Lymphoma Psychosocial Hx Psychiatric Problems: No Integumentary HX Skin/Integumentary Disorder: No Blood Transfusions Hx Blood Disorders: No Reviewed Nursing Assessment Reviewed/Agree w Nursing PMH: Yes Physical Exam Vital Signs Vital Sign - Last 12Hours 01/27/17 01/27/17 14:26 18:14 Temp 98.0 Pulse 59 Resp 18 B/P (MAP) 150/57 Pulse Ox 97 Capillary Refill : Less Than 3 Seconds General Appearance: No Apparent Distress, WD/WN HEENT: PERRL/EOMI, TMs Normal, Normal ENT Inspection, Pharynx Normal Neck: Full Range of Motion, Normal Inspection, Non Tender, Supple Cardiovascular: Regular Rate, Rhythm, No Edema, No Murmur, Normal Peripheral Pulses Respiratory: Chest Non Tender, Lungs Clear, Normal Breath Sounds Gastrointestinal: Normal Bowel Sounds, No Organomegaly, No Pulsatile Mass, Non Tender, Soft, No Distended, No Guarding Back: Normal Inspection, No CVA Tenderness, No Vertebral Tenderness Extremities: Normal Capillary Refill, No Calf Tenderness, No Pedal Edema Neurologic/Psychiatric: Alert, Oriented x3, No Motor/Sensory Deficits, Normal Mood/Affect Cranial Nerves: Normal Hearing, Normal Speech, PERRL Coordination/Gait: Normal Finger to Nose Motor/Sensory: No Motor Deficit, No Sensory Deficit, No Pronator Drift Skin: Normal Color, Warm/Dry Lymphatic: No Adenopathy Progress/Results/Core Measures Results/Orders Lab Results Laboratory Tests Test 01/27/17 15:40 01/27/17 16:15 Range/Units Urine Color YELLOW Urine Clarity SLIGHTLY CLOUDY Urine pH 7 5-9 Urine Specific [place] 1.005 L 1.016-1.022 Urine Protein NEGATIVE NEGATIVE Urine Glucose (UA) NEGATIVE NEGATIVE Urine Ketones 1+ H NEGATIVE Urine Nitrite NEGATIVE NEGATIVE Urine Bilirubin NEGATIVE NEGATIVE Urine Urobilinogen NORMAL NORMAL MG/DL Urine Leukocyte Esterase NEGATIVE NEGATIVE Urine RBC (Auto) NEGATIVE NEGATIVE Urine RBC 0-2 /HPF Urine WBC NONE /HPF Urine Squamous Epithelial Cells 2-5 /HPF Urine Crystals NONE /LPF Urine Bacteria NEGATIVE /HPF Urine Casts NONE /LPF Urine Mucus NEGATIVE /LPF Urine Culture Indicated NO White Blood Count 11.8 H 4.3-11.0 10^3/uL Red Blood Count 4.53 4.35-5.85 10^6/uL Hemoglobin 12.9 11.5-16.0 G/DL Hematocrit 39 35-52 % Mean Corpuscular Volume 86 80-99 FL Mean Corpuscular Hemoglobin 29 25-34 PG Mean Corpuscular Hemoglobin Concent 33 32-36 G/DL Red Cell Distribution Width 14.0 10.0-14.5 % Platelet Count 54 L 130-400 10^3/uL Mean Platelet Volume 10.7 H 7.4-10.4 FL Neutrophils (%) (Auto) 31 L 42-75 % Lymphocytes (%) (Auto) 64 H 12-44 % Monocytes (%) (Auto) 4 0-12 % Eosinophils (%) (Auto) 1 0-10 % Basophils (%) (Auto) 0 0-10 % Neutrophils # (Auto) 3.7 1.8-7.8 X 10^3 Lymphocytes # (Auto) 7.6 H 1.0-4.0 X 10^3 Monocytes # (Auto) 0.4 0.0-1.0 X 10^3 Eosinophils # (Auto) 0.1 0.0-0.3 10^3/uL Basophils # (Auto) 0.0 0.0-0.1 10^3/uL Sodium Level 134 L 135-145 MMOL/L Potassium Level 4.2 3.6-5.0 MMOL/L Chloride Level 101 98-107 MMOL/L Carbon Dioxide Level 20 L 21-32 MMOL/L Anion Gap 13 5-14 MMOL/L Blood Urea Nitrogen 10 7-18 MG/DL Creatinine 0.92 0.60-1.30 MG/DL Estimat Glomerular Filtration Rate 58 BUN/Creatinine Ratio 11 Glucose Level 84 70-105 MG/DL Calcium Level 9.5 8.5-10.1 MG/DL Total Bilirubin 1.1 H 0.1-1.0 MG/DL Aspartate Amino Transf (AST/SGOT) 18 5-34 U/L Alanine Aminotransferase (ALT/SGPT) 13 0-55 U/L Alkaline Phosphatase 53 40-136 U/L Total Protein 7.1 6.4-8.2 G/DL Albumin 4.3 3.2-4.5 G/DL My Orders Orders - CORNELIA CULLEN Cbc With Automated Diff (01/27/17 15:18) Comprehensive Metabolic Panel (01/27/17 15:18) Ua Culture If Indicated (01/27/17 15:18) Tramadol Tablet (Ultram Tablet) (01/27/17 16:05) Saline Lock/Iv-Start (01/27/17 16:27) Ns Iv 1000 Ml (Sodium Chloride 0.9%) (01/27/17 16:27) Medications Given in ED Current Medications Medications Dose Ordered Sig/Hima Route Start Time Stop Time Status Last Admin Dose Admin Sodium Chloride 1,000 ml @ 0 mls/hr Q0M ONCE IV 01/27/17 16:27 01/27/17 16:29 DC 01/27/17 17:07 1,000 MLS/HR Vital Signs/I&O Vital Sign - Last 12Hours 01/27/17 01/27/17 14:26 18:14 Temp 98.0 Pulse 59 54 Resp 18 18 B/P (MAP) 150/57 Pulse Ox 97 Blood Pressure Mean: 88 Progress Note : Time: 15:10 Progress Note initial evaluation completed, will obtain lab workup and IV fluid 1 L normal saline. 1610 labs all essentially normal, recommended tramadol 50 mg by mouth for back and left leg pain. 1700 patient has improvement in her left back and leg pain. She denies any complaints at this time. discussed with the patient and her son the importance to follow-up with Dr. Heredia and Mendoza Fontanez APRN. Departure Impression Impression: Primary Impression: Lumbar pain with radiation down left leg Disposition: HOME, SELF-CARE Condition: Improved Departure-Patient Inst. Decision time for Depature: 17:20 Referrals: MATT HEREDIA MD (PCP/Family) Primary Care Physician Patient Instructions: Low Back Pain (DC), Syncope (Fainting) (DC) Add. Discharge Instructions: Warm moist heat to low back and left hip. Use Ultram every 8 hours as needed for pain. Follow-up with Dr. Heredia's pain continues. Increase water intake. Frequent small snacks. Return to emergency department for dizziness, new complaints or problems. All discharge instructions reviewed with patient and/or family. Voiced understanding. Scripts Tramadol HCl (Tramadol HCl) 50 Mg Tablet 50 MG PO Q8H, #15 TAB 0 Refills Prov: CORNELIA CULLEN 01/27/17 Copy Copies To 1: MATT HEREDIA MD Copies To 2: CAROL FONTANEZ AMY ARNP Jan 27, 2017 17:56
[2017-01-27 18:14] VITALS: BP 142/57
== END 2017-01-27 18:14 | disposition home or self-care (01) ==
LOC: EDUNIT# 13:52 → ER 13:54
DX: M54.5 Low back pain (principal); M79.605 Pain in left leg; I10 Essential (primary) hypertension; F03.90 Unspecified dementia, unspecified severity, without behavioral disturbance, psychotic disturbance, mood disturbance, and anxiety; Z79.82 Long term (current) use of aspirin
CPT/HCPCS: 36415; 80053; 81000; 85025

== ENCOUNTER 2017-02-26 09:15 | Outpatient (RCR) | payer MEDICARE, OTHER ==
[2017-01-01 11:42] LABS: BASOPHILS % (AUTO) 0 % (0-10); EOSINOPHILS # (AUTO) 0.1 10^3/uL (0.0-0.3); EOSINOPHILS % (AUTO) 1 % (0-10); LYMPHOCYTES # (AUTO) 10.3 X 10^3 (1.0-4.0); LYMPHOCYTES % (AUTO) 72 % (12-44); MEAN CORPUSCULAR HEMOGLOBIN 29 PG (25-34); MEAN CORPUSCULAR HGB CONC 33 G/DL (32-36); MEAN CORPUSCULAR VOLUME 87 FL (80-99); MONOCYTES # (AUTO) 0.3 X 10^3 (0.0-1.0); MONOCYTES % (AUTO) 2 % (0-12); NEUTROPHILS # (AUTO) 3.6 X 10^3 (1.8-7.8); NEUTROPHILS % (AUTO) 25 % (42-75); PLATELET COUNT 55 10^3/uL (130-400); RED BLOOD COUNT 4.27 10^6/uL (4.35-5.85); RED CELL DISTRIBUTION WIDTH 14.7 % (10.0-14.5); WHITE BLOOD COUNT 14.3 10^3/uL (4.3-11.0)
[2017-02-05 10:03] LABS: BASOPHILS # (AUTO) 0.1 10^3/uL (0.0-0.1); BASOPHILS % (AUTO) 0 % (0-10); EOSINOPHILS # (AUTO) 0.1 10^3/uL (0.0-0.3); EOSINOPHILS % (AUTO) 1 % (0-10); LYMPHOCYTES % (AUTO) 68 % (12-44); MEAN CORPUSCULAR HEMOGLOBIN 29 PG (25-34); MEAN CORPUSCULAR HGB CONC 33 G/DL (32-36); MEAN CORPUSCULAR VOLUME 86 FL (80-99); MONOCYTES # (AUTO) 0.5 X 10^3 (0.0-1.0); MONOCYTES % (AUTO) 3 % (0-12); NEUTROPHILS # (AUTO) 4.5 X 10^3 (1.8-7.8); NEUTROPHILS % (AUTO) 28 % (42-75); RED BLOOD COUNT 4.53 10^6/uL (4.35-5.85); RED CELL DISTRIBUTION WIDTH 14.4 % (10.0-14.5); WHITE BLOOD COUNT 16.1 10^3/uL (4.3-11.0)
[2017-02-05 10:08] LABS: MEAN PLATELET VOLUME 12.6 FL (7.4-10.4); PLATELET COUNT 27 10^3/uL (130-400)
[2017-02-05 10:23] LABS: ALBUMIN 4.5 GM/DL (3.2-4.5); BILIRUBIN,TOTAL 0.9 MG/DL (0.1-1.0); CALCIUM 9.6 MG/DL (8.5-10.1); CREATININE SERUM 1.03 MG/DL (0.60-1.30); ICTERUS 0.8 (-100-1.9); POTASSIUM 4.4 MMOL/L (3.6-5.0); TOTAL PROTEIN 7.3 GM/DL (6.4-8.2)
[~2017-02-26 09:15] MED LIST changes: +TRAM50TA2 PO
[2017-02-26 09:56] LABS: BASOPHILS % (AUTO) 0 % (0-10); EOSINOPHILS # (AUTO) 0.1 10^3/uL (0.0-0.3); EOSINOPHILS % (AUTO) 1 % (0-10); LYMPHOCYTES # (AUTO) 6.2 X 10^3 (1.0-4.0); LYMPHOCYTES % (AUTO) 56 % (12-44); MEAN CORPUSCULAR HEMOGLOBIN 29 PG (25-34); MEAN CORPUSCULAR HGB CONC 33 G/DL (32-36); MEAN CORPUSCULAR VOLUME 87 FL (80-99); MONOCYTES # (AUTO) 0.4 X 10^3 (0.0-1.0); MONOCYTES % (AUTO) 4 % (0-12); NEUTROPHILS # (AUTO) 4.4 X 10^3 (1.8-7.8); NEUTROPHILS % (AUTO) 39 % (42-75); PLATELET COUNT 25 10^3/uL (130-400); RED BLOOD COUNT 4.28 10^6/uL (4.35-5.85); RED CELL DISTRIBUTION WIDTH 14.6 % (10.0-14.5); WHITE BLOOD COUNT 11.1 10^3/uL (4.3-11.0)
== END 2017-03-29 14:46 | disposition home or self-care (01) ==
LOC: ONC 09:15
PROVIDERS: ATTEND Internal Medicine Hematology & Oncology
DX: C83.30 Diffuse large B-cell lymphoma, unspecified site (principal)
CPT/HCPCS: 36415; 80053; 83615; 85025; 99213

== ENCOUNTER 2017-04-02 09:40 | Outpatient (RCR) | payer MEDICARE, OTHER ==
[2017-04-02 10:05] LABS: BASOPHILS % (AUTO) 0 % (0-10); EOSINOPHILS # (AUTO) 0.1 10^3/uL (0.0-0.3); EOSINOPHILS % (AUTO) 1 % (0-10); LYMPHOCYTES # (AUTO) 5.3 X 10^3 (1.0-4.0); LYMPHOCYTES % (AUTO) 54 % (12-44); MEAN CORPUSCULAR HEMOGLOBIN 28 PG (25-34); MEAN CORPUSCULAR HGB CONC 33 G/DL (32-36); MEAN CORPUSCULAR VOLUME 86 FL (80-99); MONOCYTES # (AUTO) 0.5 X 10^3 (0.0-1.0); MONOCYTES % (AUTO) 5 % (0-12); NEUTROPHILS # (AUTO) 3.9 X 10^3 (1.8-7.8); NEUTROPHILS % (AUTO) 40 % (42-75); PLATELET COUNT 34 10^3/uL (130-400); RED BLOOD COUNT 4.51 10^6/uL (4.35-5.85); RED CELL DISTRIBUTION WIDTH 14.4 % (10.0-14.5); WHITE BLOOD COUNT 9.8 10^3/uL (4.3-11.0)
[2017-04-02 10:54] LABS: ALBUMIN 4.2 GM/DL (3.2-4.5); BILIRUBIN,TOTAL 1.2 MG/DL (0.1-1.0); CALCIUM 9.7 MG/DL (8.5-10.1); CREATININE SERUM 0.95 MG/DL (0.60-1.30); POTASSIUM 4.4 MMOL/L (3.6-5.0); TOTAL PROTEIN 7.2 GM/DL (6.4-8.2)
[2017-04-03 11:25] LABS: IMMUNOGLOBULIN IGA 148 mg/dL (71-263); IMMUNOGLOBULIN IGG 1009 mg/dL (672-1680)
[2017-04-03 11:59] LABS: IMMUNOGLOBULIN IGM 74 mg/dL (47-209)
== END 2017-05-19 | disposition home or self-care (01) ==
LOC: ONC 09:40
PROVIDERS: ATTEND Internal Medicine Hematology & Oncology
DX: C91.10 Chronic lymphocytic leukemia of B-cell type not having achieved remission (principal); C83.30 Diffuse large B-cell lymphoma, unspecified site; D69.6 Thrombocytopenia, unspecified; I25.10 Atherosclerotic heart disease of native coronary artery without angina pectoris; I65.23 Occlusion and stenosis of bilateral carotid arteries; I10 Essential (primary) hypertension; E78.5 Hyperlipidemia, unspecified; Z79.899 Other long term (current) drug therapy
CPT/HCPCS: 36415; 80053; 82784; 83615; 85025; 99213

== ENCOUNTER → 2017-05-18 | Outpatient (CLI) | payer MEDICARE, OTHER | LOC: PREOP 05:54 | PROVIDERS: ATTEND Internal Medicine | DX: Z01.818 Encounter for other preprocedural examination (principal); K22.70 Barrett's esophagus without dysplasia ==

== ENCOUNTER 2017-05-22 06:37 | Day surgery (SDC) | payer MEDICARE, OTHER ==
--- NOTE | 2017-05-17 23:12 | HISTORY AND PHYSICAL ---
DATE OF SERVICE: HISTORY OF PRESENT ILLNESS: The patient is a 71-year-old white female referred by Dr. Caldwell for EGD evaluation for surveillance purposes due to past history of Cespedes's. The patient comes with her son today. She has a history of Alzheimer dementia. In review of her electronic medical record, she last underwent EGD on 02/07/2011. It was performed by Dr. Lobo, who did not record any operative reports, they can be located in the electronic medical record. 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 The patient has been taking proton-pump inhibitor therapy and she denies dysphagia, heartburn, bright red blood per rectum or melena. Due to her underlying dementia history is suspect and today she voices no complaints. PAST MEDICAL HISTORY: Significant for hypertension, hyperlipidemia, reported past history of atrial fibrillation and medical record and history of non-Hodgkin's lymphoma diagnosed in 2003 with no apparent recurrence since initial treatments. MEDICATIONS ON ADMISSION: Include spironolactone 25 mg daily, simvastatin 40 mg daily, Bystolic 10 mg daily, Vasotec 5 mg daily, 81 mg aspirin daily, fish oil 1 gram b.i.d., vitamin D 3000 units daily and pantoprazole 40 mg daily. PAST SURGICAL HISTORY: She has had past carpal tunnel release, reports no past abdominal history. SOCIAL HISTORY: She is retired, with children, with no past history of smoking or alcohol consumption. PHYSICAL EXAMINATION: GENERAL: Reveals a somewhat confused white female, who does not appear to be in acute distress. She does answer simple questions, but is sometimes directed by her son. There has been some weight loss over the past year and determine the balance. VITAL SIGNS: Blood pressure 144/80. She is 5 feet and 2 inches and weighs 128.4 pounds. NECK: Revealed no JVD, adenopathy or bruit. CARDIOVASCULAR: Reveals regular rate and rhythm, soft II/ systolic ejection murmur heard best at the second right intercostal space without evidence of pulsus, parvus or tardus. No S3 or S4 appreciated. ABDOMEN: Soft, supple without mass, organomegaly or tenderness. Bowel sounds are positive. EXTREMITIES: Reveal no cyanosis, clubbing or edema. 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 The patient was set up for EGD evaluation for surveillance purposes on the 22 of May. Prep instructions were given to the son. He is to remove baby aspirin from her medications list and continuing her other medications unchanged with resumption post-procedure after discussion. In today's office evaluation and review of her electronic medical record 45 minutes of care time spent by myself and another 15 minutes of staff time. I thank you for referral of this pleasant lady. Job ID: [id number] DocumentID: [id number] Dictated Date: 05/17/2017 21:48:51 Avionics Systems Repairer Date: 05/17/2017 23:11:22 Dictated By: COLIN CHURCH MD [facility]
[~2017-05-22] VITALS: Ht 157.5 cm; Wt 62.6 kg
[2017-05-22] MEDS ORDERED: D5 LR IV SOLUTION 1,000 ML IV STA (07:11)
[2017-05-22] MEDS ORDERED: MIDAZOLAM 2 MG/2 ML (VERSED) VIAL IVP PRN (07:15)
[2017-05-22] MEDS ORDERED: LIDOCAINE JELLY 2% (XYLOCAINE) 5 ML TUBE MM PRN (07:15)
[2017-05-22] MEDS ORDERED: HURRICAINE EXT TUBE (BENZOCAINE) XX PRN (07:15)
[2017-05-22] MEDS ORDERED: fentaNYL INJECTION 100 MCG/2 ML AMP IVP PRN (07:15)
[2017-05-22 07:31] VITALS: BP 150/74
--- NOTE | 2017-05-22 07:51 | Pre-Op Note & Conscious Sedat ---
Pre-Operative Progress Note H&P Reviewed The H&P was reviewed, patient examined and no changes noted. Date H&P Reviewed: May 22, 2017 Time H&P Reviewed: 07:50 Conscious Sedation Pre-Proced ASA Class: 2 Airway Mallampati Classification: ([place] appropriate class) I. II. III, IV Lungs Heart ASA score ASA 1: a normal healthy patient ASA 2: a patient with a mild systemic disease (mid diabetes, controlled hypertension, obesity ASA 3: a patient with a severe systemic disease that limits activity (angina , COPD, prior Myocardial infarction) ASA 4: a patient with an incapacitating disease that is a constant threat to life (CHF, renal failure) ASA 5: a moribund patient not expected to survive 24 hrs. (ruptured aneurysm) ASA 6: a declared brain patient whose organs are being harvested. For emergent operations, add the letter E after the classification Grade 2 Sedation Plan: Analgesia, Amnesia, Plan communicated to team members, Discussed options with patient/fam, Discussed risks with patient/fam Note The patient is an appropriate candidate to undergo the planned procedure, sedation, and anesthesia. The patient immediately re-assessed prior to indication. COLIN CHURCH MD May 22, 2017 07:51
[2017-05-22] MEDS ORDERED: LIDOCAINE JELLY 2% (XYLOCAINE) 5 ML TUBE ONE (07:53)
[2017-05-22] MEDS ORDERED: MIDAZOLAM 2 MG/2 ML (VERSED) VIAL ONE ×3 (07:54)
[2017-05-22] MEDS ORDERED: HURRICAINE EXT TUBE (BENZOCAINE) ONE (07:54)
[2017-05-22] MEDS ORDERED: fentaNYL INJECTION 100 MCG/2 ML AMP ONE (07:54)
[2017-05-22 08:35] VITALS: BP 146/72
[2017-05-22 09:00] VITALS: BP 132/60
[2017-05-22 09:32] VITALS: BP 132/60
--- NOTE | 2017-05-22 09:53 | OPERATIVE REPORT ---
DATE OF SERVICE: 05/22/2017 PROCEDURE: EGD summary. INDICATION FOR THE PROCEDURE: Surveillance, past history of Cespedes's esophagus. The patient was placed in the left lateral decubitus position. The endoscope was inserted in the oral cavity and under direct visualization the esophagus was intubated. The endoscope was passed down the esophagus through the stomach and second portion of the duodenum. Careful inspection was made as the endoscope was withdrawn. The patient tolerated the procedure well. FINDINGS: The posterior hypopharynx, arytenoid aperture, true and false vocal folds were unremarkable. No evidence for inflammation was noted. Proximal and mid esophagus were unremarkable. The Z line was proximally placed at 35 cm secondary to a moderate size hiatal hernia. There was a rather distinct circumferential GE junction with some mild erythema but no evidence for erosive esophagitis and no definitive gross inspection Findings for Cespedes's. Three biopsies taken from just below the Z line were obtained and submitted for histopathology. The cardia, fundus and antrum of the stomach were unremarkable. The pylorus is large and widely patent with a normal duodenal bulb and second portion of the duodenum. No evidence for gastritis or duodenitis was noted. ASSESSMENT: There is a moderate size hiatal hernia without evidence for erosive esophagitis and questionable gross changes of short segment Cespedes's. We will await histopathology report from circumferential biopsies done before making recommendations. Considering this patient's age with history of dementia would likely only recommend future surveillance if high-grade dysplasia was present. I thank you for the referral of this pleasant lady. Job ID: [id number] DocumentID: [id number] Dictated Date: 05/22/2017 08:22:57 Regulatory Law Specialist Date: 05/22/2017 09:52:43 Dictated By: COLIN CHURCH MD
== END 2017-05-22 09:13 | disposition home or self-care (01) ==
LOC: ENDO 06:37
PROVIDERS: ATTEND Internal Medicine
DX: E78.5 Hyperlipidemia, unspecified; I10 Essential (primary) hypertension; I48.91 Unspecified atrial fibrillation; Z79.899 Other long term (current) drug therapy; C85.90 Non-Hodgkin lymphoma, unspecified, unspecified site; F03.90 Unspecified dementia, unspecified severity, without behavioral disturbance, psychotic disturbance, mood disturbance, and anxiety; K22.70 Barrett's esophagus without dysplasia; K44.9 Diaphragmatic hernia without obstruction or gangrene

== ENCOUNTER 2017-07-23 08:43 | Outpatient (RCR) | payer MEDICARE, OTHER ==
[2017-05-28 08:31] LABS: BASOPHILS % (AUTO) 0 % (0-10); EOSINOPHILS # (AUTO) 0.1 10^3/uL (0.0-0.3); EOSINOPHILS % (AUTO) 1 % (0-10); HEMATOCRIT 37 % (35-52); LYMPHOCYTES # (AUTO) 5.4 X 10^3 (1.0-4.0); LYMPHOCYTES % (AUTO) 56 % (12-44); MEAN CORPUSCULAR HEMOGLOBIN 28 PG (25-34); MEAN CORPUSCULAR HGB CONC 33 G/DL (32-36); MEAN CORPUSCULAR VOLUME 85 FL (80-99); MEAN PLATELET VOLUME 13.8 FL (7.4-10.4); MONOCYTES # (AUTO) 0.3 X 10^3 (0.0-1.0); MONOCYTES % (AUTO) 3 % (0-12); NEUTROPHILS # (AUTO) 3.8 X 10^3 (1.8-7.8); NEUTROPHILS % (AUTO) 40 % (42-75); RED BLOOD COUNT 4.35 10^6/uL (4.35-5.85); WHITE BLOOD COUNT 9.6 10^3/uL (4.3-11.0)
[2017-05-28 08:36] LABS: PLATELET COUNT 27 10^3/uL (130-400)
[2017-05-28 08:54] LABS: CALCIUM 9.1 MG/DL (8.5-10.1); CREATININE SERUM 1.07 MG/DL (0.60-1.30); POTASSIUM 3.9 MMOL/L (3.6-5.0); TOTAL PROTEIN 7.1 GM/DL (6.4-8.2)
[2017-07-19 09:42] LABS: BASOPHILS % (AUTO) 0 % (0-10); EOSINOPHILS # (AUTO) 0.1 10^3/uL (0.0-0.3); EOSINOPHILS % (AUTO) 1 % (0-10); HEMATOCRIT 37 % (35-52); LYMPHOCYTES # (AUTO) 6.1 X 10^3 (1.0-4.0); LYMPHOCYTES % (AUTO) 56 % (12-44); MEAN CORPUSCULAR HEMOGLOBIN 27 PG (25-34); MEAN CORPUSCULAR HGB CONC 33 G/DL (32-36); MEAN CORPUSCULAR VOLUME 84 FL (80-99); MONOCYTES # (AUTO) 0.4 X 10^3 (0.0-1.0); MONOCYTES % (AUTO) 3 % (0-12); NEUTROPHILS # (AUTO) 4.2 X 10^3 (1.8-7.8); NEUTROPHILS % (AUTO) 39 % (42-75); RED CELL DISTRIBUTION WIDTH 14.7 % (10.0-14.5); WHITE BLOOD COUNT 10.9 10^3/uL (4.3-11.0)
[2017-07-19 09:44] LABS: PLATELET COUNT 29 10^3/uL (130-400)
[2017-07-19 10:02] LABS: ALBUMIN 3.9 GM/DL (3.2-4.5); BILIRUBIN,TOTAL 1.2 MG/DL (0.1-1.0); CREATININE SERUM 0.94 MG/DL (0.60-1.30); POTASSIUM 3.8 MMOL/L (3.6-5.0); TOTAL PROTEIN 6.4 GM/DL (6.4-8.2)
== END 2017-08-26 | disposition home or self-care (01) ==
LOC: ONC 08:43
PROVIDERS: ATTEND Internal Medicine Hematology & Oncology
DX: C91.10 Chronic lymphocytic leukemia of B-cell type not having achieved remission (principal); C83.30 Diffuse large B-cell lymphoma, unspecified site; D69.6 Thrombocytopenia, unspecified; I25.10 Atherosclerotic heart disease of native coronary artery without angina pectoris; I65.23 Occlusion and stenosis of bilateral carotid arteries; I10 Essential (primary) hypertension; E78.5 Hyperlipidemia, unspecified; Z79.899 Other long term (current) drug therapy
CPT/HCPCS: 36415; 80053; 82784; 83615; 85025; 99213

== ENCOUNTER → 2017-07-26 | Outpatient (CLI) | payer MEDICARE, OTHER ==
--- NOTE | 2017-07-27 12:55 | Diagnostic Imaging Report ---
Bilateral screening mammogram 2D views with tomosynthesis. The current study was also evaluated with a Computer Aided Detection (CAD) system. INDICATION: Screening. No current complaints stated on the questionnaire. COMPARISON: 08/02/2015. FINDINGS: The breasts are composed of scattered fibroglandular densities. No mass, architectural distortion or suspicious cluster of calcification is identified. Allowing for technique and positional differences, no suspicious change is seen. IMPRESSION: No significant change. ACR BI-RADS Category 2: Benign findings. Result letter will be mailed to the patient. Note: At least 10% of breast cancer is not imaged by mammography. Dictated on workstation # [id number]
== END ==
LOC: RAD 14:59
PROVIDERS: ATTEND Internal Medicine
DX: Z12.31 Encounter for screening mammogram for malignant neoplasm of breast (principal)

== ENCOUNTER 2017-10-21 14:54 | Inpatient (IN) | payer MEDICARE, OTHER ==
[~2017-10-21] VITALS: Ht 157.5 cm; Wt 59.0 kg
--- NOTE | 2017-10-21 15:25 | Diagnostic Imaging Report ---
INDICATION: Chest pain. Comparison with 11/27/2016. FINDINGS: The lungs are well-aerated. There are no infiltrates. The heart is mildly enlarged. There is no evidence of pulmonary edema. No hilar adenopathy. No pleural effusion. IMPRESSION: No acute abnormalities have developed. Dictated by: Dictated on workstation # [id number]
--- NOTE | 2017-10-21 15:35 | ED General ---
General Chief Complaint: Chest Wall/Rib Pain Stated Complaint: UPPER L SIDE PAIN History of Present Illness Date Seen by Provider: Oct 21, 2017 Time Seen by Provider: 15:15 Initial Comments 82-year-old female reports for left rib and upper back pain. She denies an injury or falls. Her family reports she was outside doing yard work today and had acute onset of pain. She does have a history of dementia. 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 She is followed by Dr. Carlos and Gail Garcia APRN in the cancer center. She has a history of coronary artery disease and is followed by Dr. Salgado. She takes aspirin daily and does report taking it today. She has a small bruise on her left deltoid. No other pain or concerns. She has an acute cough that started today. She had mild dyspnea secondary to the pain upon presentation. Her initial SaO2 was in the upper 70s on room air, she was placed on O2 per nasal cannula 2 L and her SaO2 was 90-94% Timing/Duration: 1-3 Hours Severity: Moderate Associated Systoms: Denies Symptoms Allergies and Home Medications Allergies Coded Allergies: No Known Drug Allergies (Verified , 09/21/08) Home Medications Enalapril Maleate 5 Mg Tablet, 5 MG PO DAILY, (Reported) Multivitamins 1 Each Capsule, 1 EACH PO DAILY, (Reported) Patient Home Medication List Home Medication List Reviewed: Yes Constitutional: no symptoms reported, see HPI Respiratory: see HPI, other (left rib and upper back pain.) Cardiovascular: no symptoms reported, see HPI Gastrointestinal: no symptoms reported, see HPI, No constipation, No diarrhea, No jaundice, No loss of appetite, No nausea, No vomiting Skin: no symptoms reported, see HPI All Other Systems Reviewed Negative Unless Noted: Yes Past Oksiqtp-Uxsevu-Tvtwdu Hx Patient Social History Alcohol Use: Denies Use Recreational Drug Use: No Smoking Status: Never a Smoker 2nd Hand Smoke Exposure: No Recent Foreign Travel: No Contact w/Someone Who Travel: No Recent Hopitalizations: No Seasonal Allergies Seasonal Allergies: No Surgeries History of Surgeries: Yes (LYMPHOMA CA 2004) Respiratory History of Respiratory Disorde: Yes Respiratory Disorders: Pneumonia Cardiovascular History of Cardiac Disorders: Yes Cardiac Disorders: High Cholesterol, Hypertension Neurological History of Neurological Disord: Yes Neurological Disorders: Dementia Reproductive System Hx Reproductive Disorders: Yes (CYSTOCELE, UTEROVAGINAL PROLAPSE) 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 Gastrointestinal History of Gastrointestinal Di: Yes Gastrointestinal Disorders: Gastroesophageal Reflux Musculoskeletal History of Musculoskeletal Dis: No Endocrine History of Endocrine Disorders: No Cancer History of Cancer: Yes Cancer: Lymphoma, Esophageal (Cespedes's esophagitis) Psychosocial History of Psychiatric Problem: No Integumentary History of Skin or Integumenta: No Blood Transfusions History of Blood Disorders: No Reviewed Nursing Assessment Reviewed/Agree w Nursing PMH: Yes Physical Exam Vital Signs Vital Signs - First Documented 10/21/17 10/21/17 10/21/17 15:17 15:20 21:07 Temp 95.1 Pulse 67 Resp 30 B/P (MAP) 137/77 (97) Pulse Ox 92 O2 Delivery Room Air O2 Flow Rate 2.00 FiO2 28 Capillary Refill : Less Than 3 Seconds General Appearance: WD/WN, Mild Distress Eyes: Bilateral Eye Normal Inspection, Bilateral Eye PERRL, Bilateral Eye EOMI HEENT: PERRL/EOMI, TMs Normal, Normal ENT Inspection, Pharynx Normal Neck: Full Range of Motion, Normal Inspection, Non Tender, Supple Respiratory: Lungs Clear, Normal Breath Sounds, No Accessory Muscle Use, No Respiratory Distress, Other (left rib, upper thoracic, mid scapular pain) Cardiovascular: Regular Rate, Rhythm, No Edema, No Murmur, Normal Peripheral Pulses Gastrointestinal: Normal Bowel Sounds, Non Tender, Soft, No Distended, No Guarding, No Mass, No Rebound Extremity: Normal Capillary Refill, Normal Inspection, Normal Range of Motion, Non Tender, No Pedal Edema Neurologic/Psychiatric: Alert, Oriented x3, No Motor/Sensory Deficits, Normal Mood/Affect Skin: Normal Color, Warm/Dry, Ecchymosis (over left deltoid, 2 x 2 cm bruise, nontender) Progress/Results/Core Measures Suspected Sepsis SIRS Temperature: Pulse: Respiratory Rate: Laboratory Tests 10/21/17 15:25: White Blood Count 17.0H Blood Pressure / Mean: Laboratory Tests 10/21/17 15:25: Creatinine 1.02, INR Comment 1.0, Platelet Count 17*L, Total Bilirubin 1.8H Results/Orders Lab Results Laboratory Tests Test 10/21/17 15:25 10/21/17 17:30 Range/Units White Blood Count 17.0 H 4.3-11.0 10^3/uL Red Blood Count 4.44 4.35-5.85 10^6/uL Hemoglobin 12.2 11.5-16.0 G/DL Hematocrit 36 35-52 % Mean Corpuscular Volume 81 80-99 FL Mean Corpuscular Hemoglobin 28 25-34 PG Mean Corpuscular Hemoglobin Concent 34 32-36 G/DL Red Cell Distribution Width 14.8 H 10.0-14.5 % Platelet Count 17 *L 130-400 10^3/uL Mean Platelet Volume 7.4-10.4 FL Neutrophils (%) (Auto) 28 L 42-75 % Lymphocytes (%) (Auto) 67 H 12-44 % Monocytes (%) (Auto) 4 0-12 % Eosinophils (%) (Auto) 1 0-10 % Basophils (%) (Auto) 0 0-10 % Neutrophils # (Auto) 4.8 1.8-7.8 X 10^3 Lymphocytes # (Auto) 11.4 H 1.0-4.0 X 10^3 Monocytes # (Auto) 0.6 0.0-1.0 X 10^3 Eosinophils # (Auto) 0.1 0.0-0.3 10^3/uL Basophils # (Auto) 0.1 0.0-0.1 10^3/uL Prothrombin Time 13.5 12.2-14.7 SEC INR Comment 1.0 0.8-1.4 Activated Partial Thromboplast Time 31 24-35 SEC Sodium Level 132 L 135-145 MMOL/L Potassium Level 4.4 3.6-5.0 MMOL/L Chloride Level 101 98-107 MMOL/L Carbon Dioxide Level 20 L 21-32 MMOL/L Anion Gap 11 5-14 MMOL/L Blood Urea Nitrogen 19 H 7-18 MG/DL Creatinine 1.02 0.60-1.30 MG/DL Estimat Glomerular Filtration Rate 52 BUN/Creatinine Ratio 19 Glucose Level 98 70-105 MG/DL Calcium Level 8.8 8.5-10.1 MG/DL Magnesium Level 1.8 1.8-2.4 MG/DL Total Bilirubin 1.8 H 0.1-1.0 MG/DL Aspartate Amino Transf (AST/SGOT) 19 5-34 U/L Alanine Aminotransferase (ALT/SGPT) 13 0-55 U/L Alkaline Phosphatase 66 40-136 U/L Total Creatine Kinase 35 29-168 U/L Creatine Kinase MB 1.1 <6.6 NG/ML Myoglobin 44.7 10.0-92.0 NG/ML Troponin I < 0.30 <0.30 NG/ML B-Type Natriuretic Peptide 320.3 H <100.0 PG/ML Total Protein 6.8 6.4-8.2 GM/DL Albumin 3.9 3.2-4.5 GM/DL Urine Color YELLOW Urine Clarity CLEAR Urine pH 7 5-9 Urine Specific [place] 1.005 L 1.016-1.022 Urine Protein NEGATIVE NEGATIVE Urine Glucose (UA) NEGATIVE NEGATIVE Urine Ketones NEGATIVE NEGATIVE Urine Nitrite NEGATIVE NEGATIVE Urine Bilirubin NEGATIVE NEGATIVE Urine Urobilinogen NORMAL NORMAL MG/DL Urine Leukocyte Esterase NEGATIVE NEGATIVE Urine RBC (Auto) 3+ H NEGATIVE Urine RBC 2-5 H /HPF Urine WBC NONE /HPF Urine Squamous Epithelial Cells 0-2 /HPF Urine Crystals NONE /LPF Urine Bacteria NEGATIVE /HPF Urine Casts NONE /LPF Urine Mucus NEGATIVE /LPF Urine Culture Indicated NO My Orders Orders - CORNELIA CULLEN [employer]LE [employer] MACHINE Cbc With Automated Diff (10/21/17 15:16) Magnesium (10/21/17 15:16) Chest 1 View, Ap/Pa Only (10/21/17 15:16) Ekg Tracing (10/21/17 15:16) Cardiac Profile 1 (10/21/17 15:16) Comprehensive Metabolic Panel (10/21/17 15:16) Myoglobin Serum (10/21/17 15:16) Protime With Inr (10/21/17 15:16) Partial Thromboplastin Time (10/21/17 15:16) O2 (10/21/17 15:16) Monitor-Rhythm Ecg Trace Only (10/21/17 15:16) Saline Lock/Iv-Start (10/21/17 15:16) Creatine Kinase (10/21/17 15:16) Creatine Kinase Mb (10/21/17 15:16) Saline Lock/Iv-Start (10/21/17 15:16) Ua Culture If Indicated (10/21/17 15:18) Morphine Injection (Morphine Injection (10/21/17 15:59) Saline Lock/Iv-Start (10/21/17 15:59) Ns Iv 1000 Ml (Sodium Chloride 0.9%) (10/21/17 15:59) BNP (10/21/17 16:24) Iohexol Injection (Omnipaque 350 Mg/Ml 1 (10/21/17 16:30) Sodium Chloride Flush (Catheter Flush Sy (10/21/17 16:30) Ns (Ivpb) (Sodium Chloride 0.9%) (10/21/17 16:30) Pharmacy Communication (Pharmacy Communi (10/21/17 16:29) Ct Angio Chest W (10/21/17 16:24) General/Regular (10/22/17 Breakfast) General/Regular (10/21/17 Dinner) General/Regular (10/21/17 Dinner) Medications Given in ED Current Medications Medications Dose Ordered Sig/Hima Route Start Time Stop Time Status Last Admin Dose Admin Iohexol 100 ml ONCE ONCE IV 10/21/17 16:30 10/21/17 16:31 DC 10/21/17 17:25 100 ML Sodium Chloride 10 ml NEEDED PRN IV 10/21/17 16:30 10/21/17 17:25 10 ML Vital Signs/I&O Vital Sign - Last 12Hours 10/21/17 10/21/17 10/21/17 10/21/17 15:17 15:20 19:26 19:45 Temp 95.1 97.0 Pulse 67 64 66 Resp 30 21 20 B/P (MAP) 137/77 (97) 134/80 141/67 (91) Pulse Ox 92 97 96 91 O2 Delivery Room Air Nasal Cannula Nasal Cannula O2 Flow Rate 2.00 2.00 10/21/17 21:07 Pulse 66 Pulse Ox 91 FiO2 28 Capillary Refill : Less Than 3 Seconds Progress Note : Time: 15:15 Progress Note Initial evaluation completed, recommended chest x-ray EKG and labs. Will continue to monitor patient. Reviewed patient's assessment and treatment plan with Dr. López, concurred with this. 1600 patient continues to have left rib and upper back pain. Give morphine 2 mg IV. 1630 discussed lab results with the patient and her family, they're aware of her chronic thrombocytopenia. Attempted to reach Dr. Melo on-call for oncology radiation, as there is no one on-call for medical oncology. No return call received. Spoke with Dr. Mendoza, agreed to admit patient with consults for pulmonology, cardiology, and oncology. We'll obtain a CT angiogram of the chest. Patient reports the pain has improved since receiving the morphine. 1729 CT angiogram does show 2 cm mass in the left lower lobe, no emboli present. These results were discussed with the patient and her family. Plans for admission completed awaiting bed placement upstairs. 183 patient continues to report no pain being present, awaiting mission to medical floor.. [address] Gusman regarding the EKG and recommendation for cardiac consult. She is stable this time and he recommended consultation Dr. Salgado in the morning tomorrow. Order written ECG Initial ECG Impression Date: Oct 21, 2017 Initial ECG Impression Time: 15:18 Initial ECG Rate: 64 Initial ECG Rhythm: Normal Sinus Initial ECG Intervals: Normal Initial ECG Intervals [place] 156, QRS D1 38, QTC 460, QTC 475. Thorp PV, QRS 72, T -27 Initial ECG Impression: Nonspecific Changes Initial ECG Comparisson: Changed Comment Sinus rhythm with right bundle branch block. Reviewed with Dr. López, agreed with interpretation. EKG showed him to Dr. Gusman Diagnostic Imaging Diagonstic Imaging: Xray Plain Films/CT/US/NM/MRI: chest Comments NAME: GABRIELA GILL [facility] REC#: [id number] PT STATUS: REG ER : 1935 PHYSICIAN: CORNELIA CULLEN ADMIT DATE: 10/21/17/ER Draft Date of Exam:10/21/17 CHEST 1 VIEW, AP/PA ONLY INDICATION: Chest pain. Comparison with 11/27/2016. FINDINGS: The lungs are well-aerated. There are no infiltrates. The heart is mildly enlarged. There is no evidence of pulmonary edema. No hilar adenopathy. No pleural effusion. IMPRESSION: No acute abnormalities have developed. Dictated on workstation # [id number] Dict: 10/21/17 1523 Trans: 10/21/17 1525 [id number] Interpreted by: ARRON SHAY MD Electronically signed by: Reviewed: Reviewed by Me Diagonstic Imaging: CT Plain Films/CT/US/NM/MRI: chest Comments NAME: BRIDGET[facility]RIELA [facility] REC#: [id number] PT STATUS: REG ER : 1935 PHYSICIAN: CORNELIA CULLEN ADMIT DATE: 10/21/17/ER Draft Date of Exam:10/21/17 CT ANGIO CHEST W PROCEDURE: CT angiography of the chest with contrast. TECHNIQUE: Multiple contiguous axial images were obtained through the chest after uneventful bolus administration of intravenous contrast. Reconstructed CTA MIP acquisitions were also performed. INDICATION: Non-Hodgkin's lymphoma. Shortness of breath with back pain. FINDINGS: Good opacification of the aorta and pulmonary arteries. 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 The pulmonary arteries are well opacified. There is narrowing of the proximal right and left main pulmonary artery. There does appear to be some adenopathy surrounding the left pulmonary artery extending from the hilum, proximally. No definite adenopathy is seen at this time surrounding the right pulmonary artery. There are no filling defects to indicate pulmonary emboli. There is pulmonary nodule now present, laterally, in right lower lobe measuring 2 cm. There is subtle infiltrate in the lingula as well. No pleural effusions or pericardial effusion. IMPRESSION: 1. No evidence of pulmonary emboli. 2. There is developing adenopathy in the left hilar region which is encasing the left main pulmonary artery, which is narrowed, though there is no evidence of occlusive disease. There is also a focal area of narrowing in the proximal right main pulmonary artery which was present on the previous exam in retrospect on 10/11/2017. This may be secondary to old scarring. 3. There has been development of a mass measuring 2 cm laterally in the left lower lobe since previous exam. There is also some mild infiltrate in the lingula now. Dictated on workstation # [id number] Dict: 10/21/17 1659 Trans: 10/21/17 1709 [facility] [id number] Interpreted by: ARRON SHAY MD Electronically signed by: Departure Impression Impression: Primary Impression: Thrombocytopenia Additional Impressions: Right bundle branch block Lymphoma Qualified Codes: C85.90 - Non-Hodgkin lymphoma, unspecified, unspecified site Rib pain on left side Hypoxia Disposition: ADMITTED INPATIENT Condition: Stable Admissions Decision to Admit Reason: Admit from ER (General) Decision to Admit/Date: Oct 21, 2017 Time/Decision to Admit Time: 16:30 Departure-Patient Inst. Referrals: MATT HEREDIA MD (PCP/Family) Primary Care Physician Copy Copies To 1: MATT HEREDIA MD, AMY ARNP Oct 21, 2017 15:35
[2017-10-21 15:39] LABS: BASOPHILS # (AUTO) 0.1 10^3/uL (0.0-0.1); BASOPHILS % (AUTO) 0 % (0-10); EOSINOPHILS # (AUTO) 0.1 10^3/uL (0.0-0.3); EOSINOPHILS % (AUTO) 1 % (0-10); HEMATOCRIT 36 % (35-52); HEMOGLOBIN 12.2 G/DL (11.5-16.0); LYMPHOCYTES # (AUTO) 11.4 X 10^3 (1.0-4.0); LYMPHOCYTES % (AUTO) 67 % (12-44); MEAN CORPUSCULAR HEMOGLOBIN 28 PG (25-34); MEAN CORPUSCULAR HGB CONC 34 G/DL (32-36); MEAN CORPUSCULAR VOLUME 81 FL (80-99); MONOCYTES # (AUTO) 0.6 X 10^3 (0.0-1.0); MONOCYTES % (AUTO) 4 % (0-12); NEUTROPHILS # (AUTO) 4.8 X 10^3 (1.8-7.8); NEUTROPHILS % (AUTO) 28 % (42-75); RED BLOOD COUNT 4.44 10^6/uL (4.35-5.85); RED CELL DISTRIBUTION WIDTH 14.8 % (10.0-14.5)
[2017-10-21 15:42] LABS: PLATELET COUNT 17 10^3/uL (130-400)
[2017-10-21 15:44] LABS: PROTHROMBIN TIME PATIENT 13.5 SEC (12.2-14.7)
[2017-10-21 15:55] LABS: ALANINE AMINOTRANSFERASE 13 U/L (0-55); ALBUMIN 3.9 GM/DL (3.2-4.5); ALKALINE PHOSPHATASE 66 U/L (40-136); BILIRUBIN,TOTAL 1.8 MG/DL (0.1-1.0); BUN/CREATININE RATIO 19; CALCIUM 8.8 MG/DL (8.5-10.1); CARBON DIOXIDE 20 MMOL/L (21-32); CHLORIDE 101 MMOL/L (98-107); CREATINE KINASE 35 U/L (29-168); CREATININE SERUM 1.02 MG/DL (0.60-1.30); GFR ESTIMATED 52; GLUCOSE 98 MG/DL (70-105); MAGNESIUM 1.8 MG/DL (1.8-2.4); POTASSIUM 4.4 MMOL/L (3.6-5.0); SODIUM 132 MMOL/L (135-145); TOTAL PROTEIN 6.8 GM/DL (6.4-8.2)
[2017-10-21] MEDS ORDERED: morphine INJ 10 MG/ML 1ML (SYR OR VIAL) IVP STA (15:59)
[2017-10-21] MEDS ORDERED: NS IV 1000 ML 1,000 ML IV SCH (15:59)
[2017-10-21 16:03] LABS: CREATINE KINASE MB 1.1 NG/ML (<6.6); MYOGLOBIN SERUM 44.7 NG/ML (10.0-92.0)
[2017-10-21] MEDS ORDERED: IOHEXOL 350 MG/ML 100 ML (OMNIPAQUE 350) VIAL IV ONE (16:30)
[2017-10-21] MEDS ORDERED: CATHETER FLUSH 10 ML SYR IV PRN (16:30)
[2017-10-21] MEDS ORDERED: NS 250 ML (IVPB) BAG IV ONE (16:30)
--- NOTE | 2017-10-21 17:09 | Diagnostic Imaging Report ---
PROCEDURE: CT angiography of the chest with contrast. TECHNIQUE: Multiple contiguous axial images were obtained through the chest after uneventful bolus administration of intravenous contrast. Reconstructed CTA MIP acquisitions were also performed. INDICATION: Non-Hodgkin's lymphoma. Shortness of breath with back pain. FINDINGS: Good opacification of the aorta and pulmonary arteries. 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 The pulmonary arteries are well opacified. There is narrowing of the proximal right and left main pulmonary artery. There does appear to be some adenopathy surrounding the left pulmonary artery extending from the hilum, proximally. No definite adenopathy is seen at this time surrounding the right pulmonary artery. There are no filling defects to indicate pulmonary emboli. There is pulmonary nodule now present, laterally, in right lower lobe measuring 2 cm. There is subtle infiltrate in the lingula as well. No pleural effusions or pericardial effusion. IMPRESSION: 1. No evidence of pulmonary emboli. 2. There is developing adenopathy in the left hilar region which is encasing the left main pulmonary artery, which is narrowed, though there is no evidence of occlusive disease. There is also a focal area of narrowing in the proximal right main pulmonary artery which was present on the previous exam in retrospect on 10/11/2017. This may be secondary to old scarring. 3. There has been development of a mass measuring 2 cm laterally in the left lower lobe since previous exam. There is also some mild infiltrate in the lingula now. Dictated by: Dictated on workstation # [id number]
[2017-10-21 17:38] LABS: BILIRUBIN,URINE NEGATIVE (NEGATIVE); CLARITY,URINE CLEAR; COLOR,URINE YELLOW; GLUCOSE, URINE (UA) NEGATIVE (NEGATIVE); KETONES,URINE NEGATIVE (NEGATIVE); LEUKOCYTE ESTERASE ,URINE NEGATIVE (NEGATIVE); NITRITE,URINE NEGATIVE (NEGATIVE); PH,URINE 7 (5-9); PROTEIN,URINE NEGATIVE (NEGATIVE); UROBILINOGEN,URINE NORMAL (NORMAL)
[2017-10-21 17:54] LABS: BACTERIA,URINE NEGATIVE /HPF; SQUAMOUS EPITHELIAL CELL,UR 0-2 /HPF
[2017-10-21 19:45] VITALS: BP 141/67
[2017-10-21] MEDS ORDERED: morphine INJ 4 MG/ML 1 ML (VIAL/SYRINGE) IV PRN (20:15)
[2017-10-21] MEDS ORDERED: ONDANSETRON 4 MG/2 ML (SDV) Z0FRAN IV PRN ×2 (20:15→20:30)
[2017-10-21] MEDS ORDERED: D5 NS 1000 ML IV SOLUTION 1,000 ML IV SCH (20:15)
[2017-10-21] MEDS ORDERED: ACETAMINOPHEN 325 MG TABLET/CAPLET (TYLENOL) PO PRN (20:15)
[2017-10-21 21:07] VITALS: BP 141/67
[2017-10-21] MEDS ORDERED: RT-ALBUTEROL SULF 2.5 MG/3 ML PRE-MIX VIAL INH PRN (21:15)
[2017-10-22 00:01] VITALS: BP 107/58
[2017-10-22 04:39] VITALS: BP 127/64
[2017-10-22 06:36] LABS: BASOPHILS % (AUTO) 0 % (0-10); EOSINOPHILS # (AUTO) 0.1 10^3/uL (0.0-0.3); EOSINOPHILS % (AUTO) 1 % (0-10); HEMATOCRIT 37 % (35-52); HEMOGLOBIN 12.3 G/DL (11.5-16.0); LYMPHOCYTES # (AUTO) 9.5 X 10^3 (1.0-4.0); LYMPHOCYTES % (AUTO) 66 % (12-44); MEAN CORPUSCULAR HEMOGLOBIN 27 PG (25-34); MEAN CORPUSCULAR HGB CONC 33 G/DL (32-36); MEAN CORPUSCULAR VOLUME 82 FL (80-99); MONOCYTES # (AUTO) 0.5 X 10^3 (0.0-1.0); MONOCYTES % (AUTO) 4 % (0-12); NEUTROPHILS # (AUTO) 4.3 X 10^3 (1.8-7.8); NEUTROPHILS % (AUTO) 30 % (42-75); RED CELL DISTRIBUTION WIDTH 14.9 % (10.0-14.5); WHITE BLOOD COUNT 14.4 10^3/uL (4.3-11.0)
[2017-10-22 06:42] LABS: PLATELET COUNT 16 10^3/uL (130-400)
[2017-10-22 07:15] LABS: ALBUMIN 3.7 GM/DL (3.2-4.5); BILIRUBIN,TOTAL 1.5 MG/DL (0.1-1.0); CALCIUM 8.7 MG/DL (8.5-10.1); CREATININE SERUM 1.07 MG/DL (0.60-1.30); POTASSIUM 3.9 MMOL/L (3.6-5.0); TOTAL PROTEIN 6.4 GM/DL (6.4-8.2)
--- NOTE | 2017-10-22 07:21 | Pulmonary Consultation ---
History of Present Illness History of Present Illness Date of Consultation 10/22/17 07:16 Time Seen by Provider: 07:16 Date of Admission History of Present Illness 82yo with hx of dementia, CLL, CAD presented secondary to back pain, SOB, and found to be hypoxic upon arrival with Sp02 in the 70's. She was placed on a 2 liter NC in ED and sp02 improved to 94%. Allergies and Home Medications Allergies Coded Allergies: No Known Drug Allergies (Verified , 09/21/08) Home Medications Enalapril Maleate 5 Mg Tablet, 5 MG PO DAILY, (Reported) Multivitamins 1 Each Capsule, 1 EACH PO DAILY, (Reported) Past Rvsfpsn-Gwcxve-Oxlhmw Hx Patient Social History Alcohol Use: Denies Use Recreational Drug Use: No Smoking Status: Never a Smoker 2nd Hand Smoke Exposure: No Recent Foreign Travel: No Contact w/Someone Who Travel: No Recent Infectious Disease Expo: No Recent Hopitalizations: No Immunizations Up To Date Date of Influenza Vaccine: Jun 25, 2017 Seasonal Allergies Seasonal Allergies: No Surgeries History of Surgeries: Yes (LYMPHOMA [place] 2004) Respiratory History of Respiratory Disorde: No Respiratory Disorders: Pneumonia Cardiovascular History of Cardiac Disorders: Yes Cardiac Disorders: High Cholesterol, Hypertension Neurological History of Neurological Disord: Yes Neurological Disorders: Dementia Reproductive System Hx Reproductive Disorders: Yes (CYSTOCELE, UTEROVAGINAL PROLAPSE) 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 Gastrointestinal History of Gastrointestinal Di: Yes Gastrointestinal Disorders: Gastroesophageal Reflux Musculoskeletal History of Musculoskeletal Dis: No Endocrine History of Endocrine Disorders: No Cancer History of Cancer: Yes Cancer: Lymphoma, Esophageal Psychosocial History of Psychiatric Problem: No Integumentary History of Skin or Integumenta: No Blood Transfusions History of Blood Disorders: No Reviewed Nursing Assessment Reviewed/Agree w Nursing PMH: Yes Exam Exam Vital Signs Date Time Temp Pulse Resp B/P (MAP) Pulse Ox O2 Delivery O2 Flow Rate FiO2 10/22/17 04:39 99.1 72 17 127/64 (85) 94 Nasal Cannula 2.00 10/22/17 00:01 98.6 62 16 107/58 (74) 95 Nasal Cannula 2.00 10/21/17 21:07 66 91 28 10/21/17 19:59 Nasal Cannula 2.00 10/21/17 19:45 97.0 66 20 141/67 (91) 91 Nasal Cannula 2.00 10/21/17 19:26 64 21 134/80 96 3//18 15:20 97 Nasal Cannula 2.00 10/21/17 15:17 95.1 67 30 137/77 (97) 92 Room Air I & O 10/22/17 07:00 Intake Total 1550 ml Output Total 910 ml Balance 640 ml General Appearance: WD/WN, Mild Distress HEENT: PERRL/EOMI, TMs Normal, Normal ENT Inspection, Pharynx Normal Neck: Full Range of Motion, Normal Inspection, Non Tender, Supple Respiratory: Lungs Clear, Normal Breath Sounds, No Accessory Muscle Use, No Respiratory Distress, Other (left rib, upper thoracic, mid scapular pain) Cardiovascular: Regular Rate, Rhythm, No Edema, No Murmur, Normal Peripheral Pulses Capillary Refill: Less Than 3 Seconds Extremity: Normal Capillary Refill, Normal Inspection, Normal Range of Motion, Non Tender, No Pedal Edema Neurologic/Psychiatric: Alert, Oriented x3, No Motor/Sensory Deficits, Normal Mood/Affect Skin: Normal Color, Warm/Dry, Ecchymosis (over left deltoid, 2 x 2 cm bruise, nontender) Results Lab Laboratory Tests 10/21/17 15:25 10/22/17 05:41 Assessment/Plan Assessment/Plan Pneumonia with hypoxemia -Start zosyn -brandon culture -Oxygen Mediastinal lymphadenopathy with hx of lymphoma Thrombocytopenia with stable Hb -oncology consulted- RN is going to d/w oncology Lung mass possibly secondary to pneumonia -repeat CT scan 8 wks after treatment. 254 LIVE MAYEN DO Oct 22, 2017 07:21
[2017-10-22] MEDS ORDERED: PIPERACILLIN SODIUM/TAZOBACTAM 4.5 GM in D5W 100 ML IVPB 100 ML IV NR (07:32)
[2017-10-22] MEDS ORDERED: OMEG-77 PO (07:59)
[2017-10-22] MEDS ORDERED: ENAL5TAB PO (07:59)
[2017-10-22] MEDS ORDERED: SPIR25TA3 PO (07:59)
[2017-10-22] MEDS ORDERED: NFNEB10T PO (07:59)
[2017-10-22] MEDS ORDERED: PANT40TA3 PO (07:59)
[2017-10-22] MEDS ORDERED: CALC-6 PO (07:59)
[2017-10-22] MEDS ORDERED: SIMV40TA4 PO (07:59)
[2017-10-22] MEDS ORDERED: MULT1TAB69 PO (07:59)
[2017-10-22] MEDS ORDERED: CHOL10003 PO (08:23)
[2017-10-22] MEDS ORDERED: OMEG-109 PO (08:23)
[2017-10-22] MEDS ORDERED: ASPI-983 PO (08:23)
[2017-10-22 08:30] VITALS: BP 99/51
--- NOTE | 2017-10-22 10:28 | Consultation-Cardiology ---
HPI-Cardiology Cardiology Consultation Date of Consultation 10/22/17 Date of Admission Time Seen by Provider: 10:22 Indication: History of CAD, RBBB HPI Patient is an 82 y/o female with history of nonobstructive coronary artery disease, RBBB, HTN, CLL. Presented to the ER yesterday with complaints of acute onset left upper rib pain while picking up sticks in her yard yesterday. Denies any fall or injury. Denies any CP. Complains of some increased dyspnea on exertion over the past month. Reports she was ill with upper respiratory infection around [place] time and feels she never fully recovered. Currently denies any dyspnea, CP, dizziness or lightheadedness. This is Dr. Salgado, I interviewed the patient, she is an 82 years old lady with history of coronary artery disease, mild nonobstructive disease, hypertension and CLL, has been followed by Dr. Youssef. Started having left rib pain while picking up sticks in her yard. Has been having mild cough, no fever or chills. Denied any palpitation, had mild dyspnea on exertion which has been worse. Noted to have questionable infiltrate on x-ray. She has thrombocytopenia which has been persistent. Home Medications & Allergies Allergies: Coded Allergies: No Known Drug Allergies (Verified , 09/21/08) Home Medication List Reviewed: Yes AWD-Xkrbsp-Vvabwo Hx Patient Social History Marital Status: Alcohol Use: Denies Use Recreational Drug Use: No Smoking Status: Never a Smoker 2nd Hand Smoke Exposure: No Recent Foreign Travel: No Recent Infectious Disease Expo: No Recent Hopitalizations: No Physical Abuse Screen: No Sexual Abuse: No Immunizations Up To Date Date of Influenza Vaccine: Jun 25, 2017 Past Medical History CAD, HTN, non-Hodgkins lymphoma, thrombocytopenia Family Medical History Significant Family History: No Pertinent Family Hx Constitutional: No chills, No diaphoresis, No dizziness, malaise, No weakness, No weight gain, No weight loss EENTM: No blurred vision, No double vision Respiratory: cough, dyspnea on exertion Cardiovascular: No chest pain, No syncope, No vascular heart diseas Gastrointestinal: No abdominal pain, No constipation Genitourinary: No dysuria, No frequency Musculoskeletal: No back pain, No joint pain, other (left uppper rib pain) Skin: No dryness, No lesions, No rash Psychiatric/Neurological: Denies Anxiety, Denies Depressed Reviewed Test Results Reviewed Test Results Lab Laboratory Tests 10/21/17 15:25: White Blood Count 17.0H, Red Blood Count 4.44, Hemoglobin 12.2, Hematocrit 36, Mean Corpuscular Volume 81, Mean Corpuscular Hemoglobin 28, Mean Corpuscular Hemoglobin Concent 34, Red Cell Distribution Width 14.8H, Platelet Count 17*L, Mean Platelet Volume , Neutrophils (%) (Auto) 28L, Lymphocytes (%) (Auto) 67H, Monocytes (%) (Auto) 4, Eosinophils (%) (Auto) 1, Basophils (%) (Auto) 0, Neutrophils # (Auto) 4.8, Lymphocytes # (Auto) 11.4H, Monocytes # (Auto) 0.6, Eosinophils # (Auto) 0.1, Basophils # (Auto) 0.1, Prothrombin Time 13.5, INR Comment 1.0, Activated Partial Thromboplast Time 31, Sodium Level 132L, Potassium Level 4.4, Chloride Level 101, Carbon Dioxide Level 20L, Anion Gap 11 , Blood Urea Nitrogen 19H, Creatinine 1.02, Estimat Glomerular Filtration Rate 52, BUN/Creatinine Ratio 19, Glucose Level 98, Calcium Level 8.8, Magnesium Level 1.8, Total Bilirubin 1.8H, Aspartate Amino Transf (AST/SGOT) 19, Alanine Aminotransferase (ALT/SGPT) 13, Alkaline Phosphatase 66, Total Creatine Kinase 35, Creatine Kinase MB 1.1, Myoglobin 44.7, Troponin I < 0.30, B-Type Natriuretic Peptide 320.3H, Total Protein 6.8, Albumin 3.9 10/21/17 17:30: Urine Color YELLOW, Urine Clarity CLEAR, Urine pH 7, Urine Specific [place] 1.005L, Urine Protein NEGATIVE, Urine Glucose (UA) NEGATIVE, Urine Ketones NEGATIVE, Urine Nitrite NEGATIVE, Urine Bilirubin NEGATIVE, Urine Urobilinogen NORMAL, Urine Leukocyte Esterase NEGATIVE, Urine RBC (Auto) 3+H, Urine RBC 2-5H , Urine WBC NONE, Urine Squamous Epithelial Cells 0-2, Urine Crystals NONE, Urine Bacteria NEGATIVE, Urine Casts NONE, Urine Mucus NEGATIVE, Urine Culture Indicated NO 10/22/17 05:41: White Blood Count 14.4H, Red Blood Count 4.50, Hemoglobin 12.3, Hematocrit 37, Mean Corpuscular Volume 82, Mean Corpuscular Hemoglobin 27, Mean Corpuscular Hemoglobin Concent 33, Red Cell Distribution Width 14.9H, Platelet Count 16*L, Mean Platelet Volume , Neutrophils (%) (Auto) 30L, Lymphocytes (%) (Auto) 66H, Monocytes (%) (Auto) 4, Eosinophils (%) (Auto) 1, Basophils (%) (Auto) 0, Neutrophils # (Auto) 4.3, Lymphocytes # (Auto) 9.5H, Monocytes # (Auto) 0.5, Eosinophils # (Auto) 0.1, Basophils # (Auto) 0.0, Sodium Level 137, Potassium Level 3.9, Chloride Level 106, Carbon Dioxide Level 23, Anion Gap 8, Blood Urea Nitrogen 20H, Creatinine 1.07, Estimat Glomerular Filtration Rate 49, BUN/ Creatinine Ratio 19, Glucose Level 93, Calcium Level 8.7, Total Bilirubin 1.5H, Aspartate Amino Transf (AST/SGOT) 15, Alanine Aminotransferase (ALT/SGPT) 11, Alkaline Phosphatase 66, Total Protein 6.4, Albumin 3.7 10/22/17 07:58: Lactic Acid Level 0.72 Physical Exam Vital Signs Vital Signs - First Documented 10/21/17 10/21/17 10/21/17 15:17 15:20 21:07 Temp 95.1 Pulse 67 Resp 30 B/P (MAP) 137/77 (97) Pulse Ox 92 O2 Delivery Room Air O2 Flow Rate 2.00 FiO2 28 Capillary Refill : Less Than 3 Seconds General Appearance: No Apparent Distress, WD/WN HEENT: PERRL/EOMI, TMs Normal Neck: Non Tender, Supple Respiratory: Chest Non Tender, Decreased Breath Sounds Cardiovascular: Regular Rate, Rhythm, No Edema, No Gallop, Normal Peripheral Pulses, Systolic Murmur Gastrointestinal: Non Tender, Soft Rectal: Deferred Back: No CVA Tenderness Extremity: Non Tender, No Calf Tenderness Neurologic/Psychiatric: Alert, Oriented x3, 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 Cat and hospitalist service. Coronary artery disease, most recent cardiac catheterization December 2007 showing heavily calcified LAD with mild to moderate disease up to 60 percent stenosis at the mid LAD, otherwise mild to moderate disease in the rest of the coronary system, stress test done in May 2016 showing no ischemia or infarction with typical female pattern. Echocardiogram was normal except for elevated pulmonary artery pressure Pulmonary hypertension, PA pressure estimated to be 50 mmHg per 2D Echo, the previous echocardiogram estimated 35 mmHg. I will repeat 2-D echocardiogram Thrombocytopenia- continue to monitor. Management per Dr. Youssef. RBBB, chronic Hypertension, controlled, continue to monitor. Hyperlipidemia, controlled. Lipid/LFTs due again in June 2018. Mild bilateral nonobstructive carotid artery stenosis per carotid duplex Apr 2017, continue to monitor. History of non-Hodgkin's lymphoma, CLL, diagnosed and treated in 2003. Currently seeing and followed by Dr. Rayna Youssef Cespedes's esophagus History of one episode of atrial fibrillation, continued be maintained in sinus rhythm. Continue to monitor. Thank you for allowing us to participate in the management of Ms. March. This is Dennis Adame PA-C, as a scribe for Dr. Salgado. This is Dr. Salgado, I have seen and evaluated the patient with Dennis, interviewed the patient perform physical examination, I agree with the current scribed note. In summary this is an 82 years old lady who had rib pain, musculoskeletal chest pain. Diagnosed with pneumonia. Noted to have thrombocytopenia which has been slightly worse than her baseline. Recommendation was to monitor. She has pulmonary hypertension and mildly elevated BNP. I will repeat 2-D echocardiogram, continue home medications and monitor blood pressure and lipids. I reviewed the current scribed note and agree with the note, I made few modification and use Italic Font Clinical Quality Measures DVT/VTE Risk/Contraindication: Risk Factor Score Per Nursin RFS Level Per Nursing on Admit: 3=High DENNIS BOOKER Oct 22, 2017 10:28 am BAL SALGADO MD Oct 22, 2017 11:05 am
--- NOTE | 2017-10-22 10:53 | History & Physical-Hospitalist ---
HPI History of Present Illness: HPI/Chief Complaint Pt is an 82yoCF with a PMH of CLL, HTN, CAD who presented to the ER for SOB and cough. Her history is limited due to her dementia. She reports symptoms she was told she was having only. She states she was told she was coughing and SOB with some phlegm production. She states she is feeling well now with no complaints. She has a friend at bedside who states she had also complained of some left sided rib pain. She otherwise has very few complaints and states she has no medical problems other than her CLL but I am unsure if this is accurate due to dementia. Source: patient Exam Limitations: clinical condition Date Seen 10/22/17 Time Seen by Provider: 10:00 Attending Physician Angela Mendoza DO PCP Awais Caldwell MD Referring Physician Date of Admission Oct 21, 2017 at 16:30 Home Medications & Allergies Home Medications Reviewed patient Home Medication Reconciliation Form Allergies Allergies Coded Allergies No Known Drug Allergies (Verified09/21/08) Past Ksvkbyn-Bacmfl-Vdujpz Hx Patient Social History Employed/Student: retired Alcohol Use: Denies Use Recreational Drug Use: No Smoking Status: Never a Smoker 2nd Hand Smoke Exposure: No Physical Abuse Screen: No Sexual Abuse: No Recent Foreign Travel: No Contact w/other who traveled: No Recent Hopitalizations: No Recent Infectious Disease Expo: No Immunizations Up To Date Date of Influenza Vaccine: Jun 25, 2017 Seasonal Allergies Seasonal Allergies: No Surgeries Yes (LYMPHOMA CA 2004) Respiratory No Cardiovascular Yes Coronary Artery Disease, High Cholesterol, Hypertension Neurological Yes Dementia Reproductive System Hx Reproductive Disorders: Yes (CYSTOCELE, UTEROVAGINAL PROLAPSE) 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 Gastrointestinal Yes Gastroesophageal Reflux Musculoskeletal No Endocrine History of Endocrine Disorders: No Cancer Yes Lymphoma Psychosocial History of Psychiatric Problem: No Integumentary History of Skin or Integumenta: No Blood Transfusions History of Blood Disorders: No Reviewed Nursing Assessment Reviewed/Agree w Nursing PMH: Yes Family Medical History Significant Family History: Heart Disease (father) Review of Systems Constitutional: No chills, No fever, No weakness EENTM: No blurred vision, No double vision, No nose congestion, No throat pain Respiratory: cough, No dyspnea on exertion, phlegm, short of breath, No wheezing Cardiovascular: No chest pain, No edema, No palpitations Gastrointestinal: No abdominal pain, No constipation, No diarrhea, No nausea, No vomiting Genitourinary: No dysuria, No frequency Musculoskeletal: No joint pain, No muscle pain Skin: No lesions, No rash Psychiatric/Neurological: Denies Headache, Denies Numbness, Denies Tingling Other unsure if accurate due to dementia Physical Exam Physical Exam Vital Signs Vital Signs - First Documented 10/21/17 10/21/17 10/21/17 15:17 15:20 21:07 Temp 95.1 Pulse 67 Resp 30 B/P (MAP) 137/77 (97) Pulse Ox 92 O2 Delivery Room Air O2 Flow Rate 2.00 FiO2 28 Capillary Refill : Less Than 3 Seconds General Appearance: No Apparent Distress, WD/WN HEENT: PERRL/EOMI, Moist Mucous Membranes Neck: Non Tender, Supple Respiratory: Lungs Clear, No Respiratory Distress Cardiovascular: Regular Rate, Rhythm, No Murmur Gastrointestinal: Normal Bowel Sounds, Non Tender, Soft Extremity: Normal Capillary Refill, No Calf Tenderness Neurologic/Psychiatric: Alert, Oriented x3 (oriented to major details but short term recall is poor), Normal Mood/Affect Skin: Normal Color, Warm/Dry Results Results/Procedures Lab Laboratory Tests 10/21/17 15:25 10/22/17 05:41 Assessment/Plan Admission Diagnosis CAP Admission Status: Inpatient Order (span 2 midnights) Reason for Inpatient Admission: CAP with hypoxia and thrombocytopenia Diagnosis/Problems Diagnosis/Problems (1) CAP (community acquired pneumonia) Assessment & Plan: met sepsis criteria on arrival (now resolved) hypothermia and leukocytosis with pneumonia Continue on abx- Zosyn Blood cultures pending Sputum culture if able Pulm consulted, appreciate recs MAT protocol Titrate O2 as able Qualifiers: Qualified Codes: J18.1 - Lobar pneumonia, unspecified organism (2) Thrombocytopenia Assessment & Plan: Chronic Hem consulted, appreciate recs Hold transfusion unless bleeding (3) CLL (chronic lymphocytic leukemia) Assessment & Plan: Follows with Dr Youssef, appreciate recs (4) Dementia Assessment & Plan: Pleasantly confused reorient as needed Qualifiers: Qualified Codes: F03.90 - Unspecified dementia without behavioral disturbance (5) Prophylactic measure Assessment & Plan: Saline lock SCDs due to thrombocytopenia Regular Diet Clinical Quality Measures DVT/VTE Risk/Contraindication: Risk Factor Score Per Nursin RFS Level Per Nursing on Admit: 3=High FREDDY JARQUIN MD Oct 22, 2017 10:53
--- NOTE | 2017-10-22 11:59 | CONSULTATION REPORT ---
DATE OF SERVICE: 10/22/2017 The patient is admitted to room #415. REFERRING PHYSICIAN: Dania Candelario MD IMPRESSION: 1. An 82-year-old female admitted with left lower lobe pneumonia and pleuritic pain. 2. Questionable small pulmonary nodule in the left lower lobe. 3. History of CLL/SLL requiring previous treatment in 2004 and on surveillance. 4. Worsening thrombocytopenia due to progressive CLL/SLL. RECOMMENDATIONS: 1. Manage the pneumonia with broad-spectrum antibiotics because of her immunocompromised status. 2. Transfuse platelets if the counts drop below 10,000 or any evidence of bleeding. 3. The patient will need a followup CT scan once the inflammatory process is cleared to follow up on the left lower lobe pulmonary nodule. 4. If the thrombocytopenia is worsening, the patient will need treatment for the CLL. I have discussed treatment options with the patient previously including non-chemotherapeutic approaches of ibrutinib, ofatumumab, etc. 5. We will follow the patient with you. BRIEF HISTORY: The patient is an 82-year-old female who was admitted to the hospital with rapid onset left lower back pain. This was pleuritic in nature and started yesterday. She was brought to the emergency room because of significant discomfort, evaluated and admitted to the hospital. The patient denied any fevers or chills. She has been working in her yard over the weekend, but denied any history of falls. She did complain of a cough since the last two days. This was not productive and she denied any hemoptysis. 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 She has been on surveillance since then. She was seen at [facility] in mid 2015 and has been on surveillance. Other significant past medical history include hypertension for more than 30 to 35 years. Hypercholesterolemia and on treatment for this. Gastroesophageal reflux disease with early changes of Cespedes's. PAST SURGICAL HISTORY: Include tonsillectomy and adenoidectomy in childhood. Bilateral cataract surgeries approximately 15 years ago. Right supraclavicular lymph node biopsy in 2003. TAHBSO in 2008. SOCIAL HISTORY: The patient is and lives alone in [place], [place]. She has three children, two sons and a daughter. Both her sons live close by and the daughter lives in [place], [place]. 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 No history of exposure to chemicals that the patient knows of. No history of tobacco, alcohol or other recreational drug use. FAMILY HISTORY: Significant for coronary artery disease in both her parents. Maternal grandmother had uterine cancer while in her 70s. No other malignancies in the family that the patient knows of. PHYSICAL EXAMINATION: GENERAL: Today showed an elderly female, weak appearing, awake and oriented otherwise in no acute distress. VITAL SIGNS: Her temperature was 97.5, pulse rate 64, respirations 18, blood pressure 99/51, oxygen saturation 91% on 2 liters of oxygen by nasal cannula. HEENT: Normocephalic. Extraocular muscles intact, conjunctivae pink, oral mucosa moist without lesions. NECK: Supple with no JVD. No definite cervical, supraclavicular lymphadenopathy palpable. The patient has small axillary lymphadenopathy palpable. CHEST: Symmetrical. LUNGS: With a few rhonchi in the left base. Rest of the lung lennon clear without wheezes or rales. CARDIOVASCULAR: Regular in rate and rhythm. No murmurs or gallops heard. ABDOMEN: Soft, nontender with no hepatosplenomegaly or other masses palpable. EXTREMITIES: Showed no edema. NEUROLOGIC: Grossly intact without focal motor deficits. LABORATORY DATA: CBC done today morning showed WBC count of 14.4, hemoglobin 12.3 and platelet count of 16,000. Neutrophil count was 4.3 and lymphocyte count was 9.5. Chemistry panel showed normal electrolytes. BUN was 20 and creatinine 1.07 with GFR 49 mL/minute. Total bilirubin was 1.5 with the rest of the liver function studies within normal limits. Chest x-ray showed no acute abnormality. CT angiogram done from the emergency room showed no evidence of pulmonary emboli. There is worsening adenopathy in the left hilar region encasing the left main pulmonary artery, which is narrowed without evidence of occlusion. Focal area of narrowing in the proximal right main pulmonary artery which was present previously. Development of a mass measuring up to 2 cm laterally in the left lower lobe with surrounding infiltrate. Thank you for allowing me to participate in this patient's care. I will follow the patient with you and make appropriate recommendations. Job ID: [id number] DocumentID: [id number] Dictated Date: 10/22/2017 10:11:11 Amphibious Operations Officer Date: 10/22/2017 11:58:48 Dictated By: MANISHA MAYFIELD MD MTDD
[2017-10-22 12:30] VITALS: BP 113/73
[2017-10-22] MEDS: PIPERACILLIN SODIUM/TAZOBACTAM 4.5 GM in D5W 100 ML IVPB 100 ML IV SCH ×2 (13:54→20:34)
[2017-10-22] MEDS ORDERED: ENOXAPARIN 40 MG/0.4 ML (LOVENOX) SYR SC SCH (14:15)
--- NOTE | 2017-10-22 16:07 | Physical Therapy Evaluation ---
PT Evaluation-General Medical Diagnosis Admission Date Oct 21, 2017 at 16:30 Medical Diagnosis: pneumonia Onset Date: Oct 21, 2017 Therapy Diagnosis Therapy Diagnosis: weakness; abn gait Height/Weight Height (Feet): 5 Height (Inches): 2.00 Weight (Pounds): 130 Weight (Ounces): 0.0 Precautions Precautions/Isolations: Fall Prevention, Standard Precautions Weight Bear Status Right Lower Extremity: Right Weight Bearing/Tolerated Left Lower Extremity: Left Weight Bearing/Tolerated Referral Physician: Kelly Reason for Referral: Evaluation/Treatment Medical History Pertinent Medical History: CAD, Dementia, HTN Current History PMH of CLL, HTN, CAD who presented to the ER for SOB and cough Reviewed History: Yes Social History Home: Single Level Current Living Status: Alone Prior/Core FIM Prior Level of Function Functional [place] Measure 0=Not Assessed/NA 4=Minimal Assistance 1=Total Assistance 5=Supervision or Setup 2=Maximal Assistance 6=Modified [place] 3=Moderate Assistance 7=Complete [place] Bed Mobility: 7 Transfers (B,C,W/C) (FIM): 7 Gait: 7 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 Voices no complaints. Pain Numeric Pain Scale: 0-No Pain Location: No Pain Reported Pt/Family Goals She is hoping to go home tomorrow. Objective Attachments: Oxygen, IV ROM/Strength ROM Lower Extremities WFL Strength Lower Extremities WFL Integumentary/Posture Integumentary Refer to nursing notes Bowel Incontinence: No Bladder Incontinence: No Posture normal and symmetrical Neuromuscular (Tone, Coordination, Reflexes) WFL Sensory Vision: Wears Glasses Hearing: Functional Hand Dominance: Right Sensation Right Lower Extremit: Intact Sensation Left Lower Extremity: Intact Transfers Functional [place] Measure 0=Not Assessed/NA 4=Minimal Assistance 1=Total Assistance 5=Supervision or Setup 2=Maximal Assistance 6=Modified [place] 3=Moderate Assistance 7=Complete [place] Transfers (B, C, W/C) (FIM): 5 Bed mobility and toilet transfers are SBA. Gait Mode of Locomotion: Walk Anticipated Mode of Locomotion: Walk Gait (FIM): 4 (CGA) Distance (FIM): 3=150 ft Comments/Gait Description No assistive device; CGA for safety as she is a bit unsteady Balance Sitting Static: Good Sitting Dynamic: Good Standing Static: Good Standing Dynamic: Fair Assessment/Needs Pt presents with recent admit; SBA with transfers and CGA with gait for safety. She will benefit from short term PT to increase her mobility while hospitalized. 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 Goals [facility] Goals PT Cage/Vault Supervisor Goals Time Frame: Oct 26, 2017 Transfers (B,C,W/C) (FIM): 7 Gait (FIM): 7 PT Plan Problem List Problem List: Activity Tolerance, Functional Strength, Safety Treatment/Plan Treatment Plan: Continue Plan of Care Treatment Plan: Bed Mobility, Education, Functional Activity Connor, Functional Strength, Gait, Safety, Therapeutic Exercise, Transfers Treatment Duration: Oct 26, 2017 Frequency: 6 times per week Estimated Hrs Per Day: .25 hour per day Patient and/or Family Agrees t: Yes Safety Risks/Education Patient Education: Safety Issues Teaching Recipient: Patient Teaching Methods: Discussion Response to Teaching: Reinforcement Needed Time/GCodes Time In: 1545 Time Out: 1600 Total Billed Treatment Time: 15 Total Billed Treatment visit EVM 15 SHELLEY MAHONEY PT Oct 22, 2017 16:07
--- NOTE | 2017-10-22 16:24 | Occupational Therapy Eval ---
OT Evaluation-General/PLF Medical Diagnosis Admission Date Oct 21, 2017 at 16:30 Medical Diagnosis: pneumonia Onset Date: Oct 21, 2017 Therapy Diagnosis Therapy Diagnosis: decr activity tolerance, weakness Height/Weight Height (Feet): 5 Height (Inches): 2.00 Weight (Pounds): 130 Weight (Ounces): 0.0 Precautions Precautions/Isolations: Fall Prevention, Standard Precautions Safety Interventions: Bed Exit Alarm, Reorient-PRN Referral Physician: Kelly Referral Reason: Evaluation/Treatment Medical History Pertinent Medical History: CAD, Dementia, GERD, HTN, Lymphoma Additional Medical History Leukemia. Cespedes's esophagitis Current History Doing yard work and developed L rib and upper back pain. Thrombocytopenia. Hypoxia. Reviewed History: Yes Social History Home: Single Level Current Living Status: Alone ADL-Prior Level of Function ADL PLOF Comments Pt reported that she has been able to manage her basic self care needs. She cooks, cleans, does laundry and yard work. 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 Her son reported that she sometimes forgets things. DME/Equipment: Shower, Tub/Shower DME/Equipment Comments No equipment Occupation: retired from [employer]. Volunteer at hospital [address] Self: Yes OT Current Status Subjective Pt seen in room, up in recliner, agreeable to OT. pain reported 0/10 Appearance Alert, cooperative Mental Status/Objective Patient Orientation: Person, Place, Situation Attachments: IV, Oxygen Current Glasses/Contacts: Yes Hand Dominance: Right Upper Extremity ROM Grossly WFL bilat Upper Extremity Strength grossly 4/5 bilat ADL-Treatment ADL-Current Pt reported that she has been able to feed herself without difficulty. She toileted with PT earlier with SBA, tall toilet, grab bar (no AD for walking) and was able to take her slipper socks off and put them back on. Functional [place] Measure 0=Not Assessed/NA 4=Minimal Assistance 1=Total Assistance 5=Supervision or Setup 2=Maximal Assistance 6=Modified [place] 3=Moderate Assistance 7=Complete IndependenceIRFPAI Quality Coding Scale 6 Independent with activity with or without an assistive device 5 Patient requires set up or clean up by helper. Patient completes activity by themselves 4 Supervision or touching assist (CGA). Sarita provide cues , steadying assist 3 The helper provides less than half the effort to complete the activity 2 The helper provides more than half the effort to complete the activity 1 Dependent. The helper does all the effort to complete an activity 7 Patient refused to complete or attempt activity 9 The patient did not perform the activity before the current illness or injury 88 Not attempted due to Medical conditions or safety concerns Education OT Patient Education: Purpose of tx/functional activities, Rehab process Teaching Recipient: Patient Teaching Methods: Discussion Response to Teaching: Verbalize Understanding OT Short Term Goals Short Term Goals Additional Short Term Goals: 2-Verbalize Understanding, 3-ImproveStrength/Connor OT Snf Goals Business Proposal Rep Goals Time Frame: Oct 29, 2017 Grooming(FIM): 6 Bathing(FIM): 6 Upper Body Dressing(FIM): 6 Lower Body Dressing(FIM): 6 Toileting(FIM): 6 Toilet/Commode Transfer(FIM): 6 Shower Transfer(FIM): 6 1=Demonstrate adherence to instructed precautions during ADL tasks. 2=Patient will verbalize/demonstrate understanding of assistive devices/ modifications for ADL. 3=Patient will improve strength/tolerance for activity to enable patient to perform ADL's. OT Education/Plan Problem List/Assessment Assessment: Decreased Activ Tolerance, Decreased UE Strength Pt would benefit from skilled OT to increase her independence in basic self care and to decrease caregiver burden Discharge Recommendations Plan/Recommendations: Continue POC Treatment Plan/Plan of Care Treatment,Training & Education: Yes Patient would benefit from OT for education, treatment and training to promote independence in ADL's, mobility, safety and/or upper extremity function for ADL' s. Plan of Care: Functional Mobility, UE Funct Exercise/Act Treatment Duration: Oct 29, 2017 Frequency: 5 times per week Estimated Hrs Per Day: .5 hour per day (.25 to .5) Agreement: Yes Rehab Potential: Good Time/GCodes Start Time: 16:00 Stop Time: 16:12 Total Time Billed (hr/min): 12 Billed Treatment Time visit, 12 minutes evaluation low intensity STACEY QUINTERO OT Oct 22, 2017 16:24
[2017-10-22 16:35] VITALS: BP 108/54
[2017-10-22 19:40] VITALS: BP 131/58
[2017-10-23] VITALS (9 sets, daily range): BP systolic 107–153; BP diastolic 51–71
[2017-10-23] MEDS: PIPERACILLIN SODIUM/TAZOBACTAM 4.5 GM in D5W 100 ML IVPB 100 ML IV SCH ×3 (05:41→22:42)
[2017-10-23 06:45] LABS: BASOPHILS # (AUTO) 0.1 10^3/uL (0.0-0.1); BASOPHILS % (AUTO) 0 % (0-10); EOSINOPHILS # (AUTO) 0.2 10^3/uL (0.0-0.3); EOSINOPHILS % (AUTO) 2 % (0-10); HEMATOCRIT 34 % (35-52); HEMOGLOBIN 11.6 G/DL (11.5-16.0); LYMPHOCYTES # (AUTO) 8.4 X 10^3 (1.0-4.0); LYMPHOCYTES % (AUTO) 62 % (12-44); MEAN CORPUSCULAR HEMOGLOBIN 28 PG (25-34); MEAN CORPUSCULAR HGB CONC 34 G/DL (32-36); MEAN CORPUSCULAR VOLUME 82 FL (80-99); MONOCYTES # (AUTO) 0.4 X 10^3 (0.0-1.0); MONOCYTES % (AUTO) 3 % (0-12); NEUTROPHILS # (AUTO) 4.6 X 10^3 (1.8-7.8); NEUTROPHILS % (AUTO) 34 % (42-75); RED BLOOD COUNT 4.17 10^6/uL (4.35-5.85); RED CELL DISTRIBUTION WIDTH 14.7 % (10.0-14.5); WHITE BLOOD COUNT 13.6 10^3/uL (4.3-11.0)
[2017-10-23 06:47] LABS: PLATELET COUNT 8 10^3/uL (130-400)
[2017-10-23 07:10] LABS: CALCIUM 8.5 MG/DL (8.5-10.1); CREATININE SERUM 1.01 MG/DL (0.60-1.30); POTASSIUM 3.9 MMOL/L (3.6-5.0)
--- NOTE | 2017-10-23 07:14 | Pulmonary Progress Note ---
Subjective Time Seen by Provider: 07:13 Subjective/Events-last exam PT has no complaints. SOB is improved. Exam Exam Vital Signs Date Time Temp Pulse Resp B/P (MAP) Pulse Ox O2 Delivery O2 Flow Rate FiO2 10/23/17 04:12 97.9 65 16 137/71 (93) 100 Nasal Cannula 2.00 10/23/17 00:17 98.2 68 17 136/66 (89) 98 Nasal Cannula 2.00 10/22/17 20:34 Nasal Cannula 4.00 10/22/17 19:40 98.1 64 18 131/58 (82) 97 Nasal Cannula 2.00 10/22/17 19:17 91 10/22/17 19:04 92 Nasal Cannula 4.00 10/22/17 16:35 97.5 62 18 108/54 (72) 95 Nasal Cannula 2.00 10/22/17 12:30 97.8 60 20 113/73 (86) 93 Nasal Cannula 2.00 10/22/17 08:30 97.5 64 18 99/51 (67) 91 Nasal Cannula 2.00 I & O 10/23/17 07:00 Intake Total 2940 ml Output Total 2185 ml Balance 755 ml General Appearance: No Apparent Distress, WD/WN HEENT: PERRL/EOMI, Moist Mucous Membranes Neck: Non Tender, Supple Respiratory: Lungs Clear, No Respiratory Distress Cardiovascular: Regular Rate, Rhythm, No Murmur Capillary Refill: Less Than 3 Seconds Extremity: Normal Capillary Refill, No Calf Tenderness Neurologic/Psychiatric: Alert, Oriented x3 (oriented to major details but short term recall is poor), Normal Mood/Affect Skin: Normal Color, Warm/Dry Lymphatic: No Adenopathy Results Lab Laboratory Tests 10/21/17 15:25 10/22/17 05:41 10/23/17 05:20 Assessment/Plan Assessment/Plan Pneumonia with hypoxemia - zosyn -brandon culture -Oxygen Mediastinal lymphadenopathy with hx of lymphoma Thrombocytopenia with stable Hb -oncology consulted- Lung mass possibly secondary to pneumonia -repeat CT scan 8 wks after treatment. 232 LIVE MAYEN DO Oct 23, 2017 07:14
[2017-10-23] MEDS ORDERED: ACETAMINOPHEN 500 MG TAB (TYLENOL) PO NR (09:00)
--- NOTE | 2017-10-23 09:42 | Progress Note-Hospitalist ---
Subjective HPI/CC On Admission Date Seen by Provider: Oct 23, 2017 Time Seen by Provider: 09:10 Pt is an 82yoCF with a PMH of CLL, HTN, CAD who presented to the ER for SOB and cough. Her history is limited due to her dementia. She reports symptoms she was told she was having only. She states she was told she was coughing and SOB with some phlegm production. She states she is feeling well now with no complaints. She has a friend at bedside who states she had also complained of some left sided rib pain. She otherwise has very few complaints and states she has no medical problems other than her CLL but I am unsure if this is accurate due to dementia. Subjective/Events-last exam Pt reports feeling well. Son at bedside. Discussion echo and CT results and concern for adenopathy causing sevre pulmonary hypertension. Discussed treatment options- they would like to discuss with her other kids and with Dr Espinoza before decided. Otherwise she reports she is feeling well. NO complaints. Breathing is improving but still has cough. Objective Exam Vital Signs Vital Signs Date Time Temp Pulse Resp B/P (MAP) Pulse Ox O2 Delivery O2 Flow Rate FiO2 10/21/17 15:17 95.1 67 30 137/77 (97) 92 Room Air 10/21/17 15:20 2.00 10/21/17 21:07 28 Capillary Refill : Less Than 3 Seconds General Appearance: No Apparent Distress, WD/WN Respiratory: Lungs Clear, No Respiratory Distress Cardiovascular: Regular Rate, Rhythm, No Murmur Gastrointestinal: Normal Bowel Sounds, Non Tender, Soft Extremity: Non Tender, No Calf Tenderness Neurologic/Psychiatric: Alert, Oriented x3 Results/Procedures Lab Laboratory Tests 10/23/17 05:20 Assessment/Plan Assessment and Plan Assess & Plan/Chief Complaint Severe Pulmonary Hypertension Diagnosis/Problems Diagnosis/Problems (1) Pulmonary hypertension Assessment & Plan: Likely due to adenopathy Discussed with Dr Salgado and Dr Youssef while reviewing echo images Concerning for development of right heart failure Discussed palliative radiation with patient and she would like to speak to her children about this and with Dr Espinoza before agreeing to treatment (2) CAP (community acquired pneumonia) Assessment & Plan: met sepsis criteria on arrival (now resolved) hypothermia and leukocytosis with pneumonia Leukocytosis trending down Continue on abx- Zosyn Blood cultures pending Sputum culture if able Pulm consulted, appreciate recs MAT protocol Titrate O2 as able Qualifiers: Qualified Codes: J18.1 - Lobar pneumonia, unspecified organism (3) Thrombocytopenia Assessment & Plan: Chronic Hem consulted, appreciate recs Plts dropped to 8 today- transfusion ordered by Dr Youssef (4) CLL (chronic lymphocytic leukemia) Assessment & Plan: Follows with Dr Youssef, appreciate recs (5) Dementia Assessment & Plan: Pleasantly confused reorient as needed Qualifiers: Qualified Codes: F03.90 - Unspecified dementia without behavioral disturbance (6) Prophylactic measure Assessment & Plan: Saline lock SCDs due to thrombocytopenia Regular Diet FREDDY JARQUIN MD Oct 23, 2017 09:42
[2017-10-23] MEDS ORDERED: NS IV 1000 ML 1,000 ML IV SCH (10:00)
[2017-10-23] MEDS ORDERED: diphenhydrAMINE 25 MG TAB (BENADRYL) CANCER CENTER PO ONE (10:06)
[2017-10-23] MEDS ORDERED: ONDANSETRON MDV (CANCER CENTER 16 MG, DEXAMETHASONE PF INJ (CANCER C 10 MG in NS (IVPB)... IV ONE (10:06)
[2017-10-23] MEDS ORDERED: BENDAMUSTINE HCL IV SCH (10:15)
[2017-10-23] MEDS ORDERED: NS IV 1000 ML (CANCER CTR) IV SCH (10:15)
[2017-10-23] MEDS ORDERED: NS IV SCH (10:15)
[2017-10-23] MEDS ORDERED: NS IV 1000 ML 1,000 ML ONE (10:15)
--- NOTE | 2017-10-23 10:42 | Occupational Ther Daily Note ---
OT Current Status-Daily Note Subjective Pt sitting in chair, agrees to therapy. Pt states she is feeling better and has no c/o pain. Mental Status/Objective Functional [place] Measure 0=Not Assessed/NA 4=Minimal Assistance 1=Total Assistance 5=Supervision or Setup 2=Maximal Assistance 6=Modified [place] 3=Moderate Assistance 7=Complete [place] Attachments: Oxygen ADL-Treatment Pt declined bathing or dressing, states she wants to wait until family brings her clean clothes. Pt states she has already completed grooming tasks this morning. Other Treatment Pt completed bilateral UE exercises to increase strength needed for ADLs and transfers. Pt performed four UE exercises x10 reps with mild resistance (yellow ) theraband. Rest breaks taken between exercises. Cues required for proper exercise technique. Pt sitting in chair with needs met and chair alarm in place after session. Education OT Patient Education: Exercise program Teaching Recipient: Patient Teaching Methods: Discussion Response to Teaching: Reinforcement Needed OT Short Term Goals Short Term Goals Additional Short Term Goals: 2-Verbalize Understanding, 3-ImproveStrength/Connor 1=Demonstrate adherence to instructed precautions during ADL tasks. 2=Patient will verbalize/demonstrate understanding of assistive devices/ modifications for ADL. 3=Patient will improve strength/tolerance for activity to enable patient to perform ADL's. OT Snf Goals Autocad Technician Goals Time Frame: Oct 29, 2017 Grooming(FIM): 6 Bathing(FIM): 6 Upper Body Dressing(FIM): 6 Lower Body Dressing(FIM): 6 Toileting(FIM): 6 Toilet/Commode Transfer(FIM): 6 Shower Transfer(FIM): 6 1=Demonstrate adherence to instructed precautions during ADL tasks. 2=Patient will verbalize/demonstrate understanding of assistive devices/ modifications for ADL. 3=Patient will improve strength/tolerance for activity to enable patient to perform ADL's. OT Education/Plan Problem List/Assessment Pt would benefit from skilled OT to increase her independence in basic self care and to decrease caregiver burden Discharge Recommendations Plan/Recommendations: Continue POC Treatment Plan/Plan of Care Patient would benefit from OT for education, treatment and training to promote independence in ADL's, mobility, safety and/or upper extremity function for ADL' s. Plan of Care: Functional Mobility, UE Funct Exercise/Act Treatment Duration: Oct 29, 2017 Frequency: 5 times per week Estimated Hrs Per Day: .5 hour per day (.25 to .5) Agreement: Yes Rehab Potential: Good Time/GCodes Start Time: 10:08 Stop Time: 10:20 Total Time Billed (hr/min): 12 Billed Treatment Time 1 visit, EX(12minutes) PAMELA CHIN OT Oct 23, 2017 10:42
--- NOTE | 2017-10-23 10:49 | Physical Therapy Daily Note ---
PT Daily Note-Current Subjective Agreeable to PT. No complaints. Reports she slept well last night. Pain Numeric Pain Scale: 0-No Pain Location: No Pain Reported Transfers Functional [place] Measure 0=Not Assessed/NA 4=Minimal Assistance 1=Total Assistance 5=Supervision or Setup 2=Maximal Assistance 6=Modified [place] 3=Moderate Assistance 7=Complete IndependenceIRFPAI Quality Coding Scale 6 Independent with activity with or without an assistive device 5 Patient requires set up or clean up by helper. Patient completes activity by themselves 4 Supervision or touching assist (CGA). [facility] provide cues , steadying assist 3 The helper provides less than half the effort to complete the activity 2 The helper provides more than half the effort to complete the activity 1 Dependent. The helper does all the effort to complete an activity 7 Patient refused to complete or attempt activity 9 The patient did not perform the activity before the current illness or injury 88 Not attempted due to Medical conditions or safety concerns Transfers (B, C, W/C) (FIM): 5 SBA with sit to stand Weight Bearing Right Lower Extremity: Right Weight Bearing/Tolerated Left Lower Extremity: Left Weight Bearing/Tolerated Gait Training Gait (FIM): 5 Distance (FIM): 3=150 ft Distance: 350 ft Gait Assistive Device: None Safe and steady gait. Safe with turning. Pt toileted mod indep. Up in chair after gait with chair alarm activitated Oxygen sats prior to gait were 97%; she ambulated without oxygen and when we returned, her sats were 88% and returned to 90% within 20 seconds of deep breathing. Assessment Current Status: Good Progress Safe steady gait. Will check tomorrow and if still mobilizing well, will DC PT. PT Jail Goals Jail Goals PT Jail Goals Time Frame: Oct 26, 2017 Transfers (B,C,W/C) (FIM): 7 Gait (FIM): 7 PT Plan Problem List Problem List: Activity Tolerance, Functional Strength, Safety Treatment/Plan Treatment Plan: Continue Plan of Care (Will DC tomorrow if still mobilizing safely) Treatment Plan: Bed Mobility, Education, Functional Activity Connor, Functional Strength, Gait, Safety, Therapeutic Exercise, Transfers Treatment Duration: Oct 26, 2017 Frequency: 6 times per week Estimated Hrs Per Day: .25 hour per day Patient and/or Family Agrees t: Yes Safety Risks/Education Patient Education: Safety Issues Teaching Recipient: Patient Teaching Methods: Discussion Response to Teaching: Verbalize Understanding Time/GCodes Time In: 1015 Time Out: 1030 Total Billed Treatment Time: 15 Total Billed Treatment visit GT 15 SHELLEY MAHONEY PT Oct 23, 2017 10:49
[2017-10-23] MEDS: NS IV 1000 ML 1,000 ML IV ONE ×2 (10:50→14:25)
--- NOTE | 2017-10-23 11:24 | Cardiology Progress Note ---
Subjective Date Seen by Provider: Oct 23, 2017 Time Seen by Provider: 08:30 Subjective/Events-last exam Patient is laying down in bed, feeling better. Denied any chest pain or shortness of breath. No palpitation Review of Systems General: No Chills, No Night Sweats, No Fatigue, No Malaise, No Appetite, No Other HEENT: No Head Aches, No Visual Changes, No Eye Pain, No Ear Pain, No Dysphasia , No Sinus Congestion, No Post Nasal Drip, No Sore Throat, No Other Pulmonary: No Dyspnea, No Cough, No Pleuritic Chest Pain, No Other Cardiovascular: No: Chest Pain, Palpitations, Orthopnea, Paroxysmal Noc. Dyspnea, Edema, Lt Headedness, Other Objective-Cardiology Exam Last Set of Vital Signs Vital Signs 10/21/17 10/23/17 21:07 08:00 Temp 98.6 Pulse 62 Resp 16 B/P (MAP) 153/67 (95) Pulse Ox 100 O2 Delivery Nasal Cannula O2 Flow Rate 2.00 FiO2 28 Capillary Refill : Less Than 3 Seconds I&O Intake and Output 10/23/17 00:00 Intake Total 1990 ml Output Total 1765 ml Balance 225 ml Intake Oral 1990 ml Output Urine Total 1765 ml General: Alert, Oriented X3, Cooperative HEENT: Atraumatic, PERRLA Neck: Supple, No JVD, No Thyromegaly Lungs: Clear to Auscultation, Normal Air Movement Heart: Regular Rate, Normal S1, Normal S2, Other (start murmur at the left sternal border) Abdomen: Normal Bowel Sounds, Soft, No Tenderness, No Hepatosplenomegaly, No Masses Extremities: No Clubbing, No Cyanosis, No Edema, Normal Pulses, No Tenderness/ Swelling Skin: No Rashes, No Breakdown, No Significant Lesion Neuro: Normal Gait, Normal Speech, Strength at 5/5 X4 Ext, Normal Tone, Sensation Intact Psych/Mental Status: Mental Status NL, Mood NL Results Lab Laboratory Tests 10/23/17 05:20 A/P-Cardiology Admission Diagnosis Pneumonia CAD HTP HTN Assessment/Plan Pneumonia- continue antibiotics, management per Dr. Cat and hospitalist service. Severe pulmonary hypertension with right ventricular strain pattern, CT scan results were reviewed appeared to have lymph node obstructing the main pulmonary artery and the right pulmonary artery. Discussed the management plan with Dr. Durham and Dr. Candelario, she will need treatment for the lymph node, possible radiation therapy. Continue on chemotherapy for now. Continue to monitor closely Coronary artery disease, most recent cardiac catheterization December 2007 showing heavily calcified LAD with mild to moderate disease up to 60 percent stenosis at the mid LAD, otherwise mild to moderate disease in the rest of the coronary system, stress test done in May 2016 showing no ischemia or infarction with typical female pattern. Continue to monitor Pulmonary hypertension, baseline of 50 mmHg, currently increased to 75 mmHg. Right ventricular strain pattern. Probably secondary to the lymph nodes. Thrombocytopenia- continue to monitor. Management per Dr. Youssef. RBBB, chronic Hypertension, controlled, continue to monitor. Hyperlipidemia, controlled. Lipid/LFTs due again in June 2018, continue to monitor Mild bilateral nonobstructive carotid artery stenosis per carotid duplex Apr 2017, continue to monitor. History of non-Hodgkin's lymphoma, CLL, diagnosed and treated in 2003. Currently seeing and followed by Dr. Rayna Youssef, discussed the management plan with Dr. Durham. Possible initiating radiation therapy for the lymph nodes Cespedes's esophagus History of one episode of atrial fibrillation, continued be maintained in sinus rhythm. Continue to monitor. Clinical Quality Measures DVT/VTE Risk/Contraindication: Risk Factor Score Per Nursin RFS Level Per Nursing on Admit: 3=High BAL LIGHT MD Oct 23, 2017 11:24
[2017-10-23 13:22] LABS: ALBUMIN 3.5 GM/DL (3.2-4.5); BILIRUBIN,TOTAL 1.6 MG/DL (0.1-1.0); CALCIUM 8.5 MG/DL (8.5-10.1); CREATININE SERUM 1.05 MG/DL (0.60-1.30); PHOSPHORUS 3.6 MG/DL (2.3-4.7); POTASSIUM 3.9 MMOL/L (3.6-5.0); TOTAL PROTEIN 6.2 GM/DL (6.4-8.2); URIC ACID 3.8 MG/DL (2.6-7.2)
--- NOTE | 2017-10-23 17:41 | Progress Note-Standard ---
Standard Progress Note Progress Notes/Assess & Plan Date Seen by Provider: Oct 23, 2017 Time Seen by Provider: 17:31 Progress/Assessment & Plan 82-year-old female with history of CLL/SLL who was admitted with cough and pleuritic left lower chest wall pain due to probable pneumonia. Currently on broad-spectrum antibiotics. Admission CT scan showed enlarging lymph nodes in the mediastinum causing narrowing of pulmonary artery. Patient had echocardiogram done yesterday which showed significant right heart strain and increasing pulmonary artery pressure due to narrowing of the pulmonary artery. Thrombocytopenia also worsening significantly with the platelet count in the 8000 range today morning. Previous bone marrow evaluation had shown significant involvement of the bone marrow by the CLL/SLL. Today discuss with the patient and her family that she would need systemic therapy to control the lymphadenopathy as well as the disease elsewhere especially in the bone marrow. I recommended chemotherapy with Treanda and Rituxan regimen. Because of bulky disease and lymphocytosis, I would not use Rituxan initially but will start chemotherapy with Treanda alone. I will administer Rituxan during week 2 for the first cycle and return to normal schedule with second cycle. Patient and her family wanted to proceed with this treatment and we will administer the chemotherapy today. Discussed the option of local radiation therapy to relieve the pulmonary hypertension and right heart strain but this would not help the thrombocytopenia. She will need a platelet transfusion today because of significant thrombocytopenia. I will start her on allopurinol 300 mg daily and monitor the electrolytes, renal function and uric acid level serially to prevent tumor lysis. Continue management of pneumonia as you are doing. Increase activity as tolerated. I will follow the patient with you. MANISHA MAYFIELD Oct 23, 2017 17:41
[2017-10-23] MEDS: SIMvastatin 40 MG (ZOCOR) TAB PO SCH (18:56)
[2017-10-23] MEDS: ALLOPURINOL 300 MG (ZYLOPRIM) TAB PO SCH (18:57)
[2017-10-24 00:30] VITALS: BP 132/62
[2017-10-24 04:15] VITALS: BP 139/67
[2017-10-24] MEDS: PIPERACILLIN SODIUM/TAZOBACTAM 4.5 GM in D5W 100 ML IVPB 100 ML IV SCH (05:50)
[2017-10-24 05:57] LABS: BASOPHILS % (AUTO) 0 % (0-10); EOSINOPHILS % (AUTO) 0 % (0-10); HEMATOCRIT 35 % (35-52); HEMOGLOBIN 11.6 G/DL (11.5-16.0); LYMPHOCYTES # (AUTO) 8.4 X 10^3 (1.0-4.0); LYMPHOCYTES % (AUTO) 62 % (12-44); MEAN CORPUSCULAR HEMOGLOBIN 27 PG (25-34); MEAN CORPUSCULAR HGB CONC 33 G/DL (32-36); MEAN CORPUSCULAR VOLUME 82 FL (80-99); MONOCYTES # (AUTO) 0.3 X 10^3 (0.0-1.0); MONOCYTES % (AUTO) 2 % (0-12); NEUTROPHILS # (AUTO) 4.9 X 10^3 (1.8-7.8); NEUTROPHILS % (AUTO) 36 % (42-75); RED BLOOD COUNT 4.28 10^6/uL (4.35-5.85); RED CELL DISTRIBUTION WIDTH 14.4 % (10.0-14.5); WHITE BLOOD COUNT 13.6 10^3/uL (4.3-11.0)
[2017-10-24 06:18] LABS: PLATELET COUNT 23 10^3/uL (130-400)
--- NOTE | 2017-10-24 06:25 | Pulmonary Progress Note ---
Subjective Time Seen by Provider: 06:23 Subjective/Events-last exam Pt appears better. No complications noted. Exam Exam Vital Signs Date Time Temp Pulse Resp B/P (MAP) Pulse Ox O2 Delivery O2 Flow Rate FiO2 10/24/17 00:30 97.9 63 17 132/62 (85) 98 Nasal Cannula 2.00 10/23/17 23:50 Nasal Cannula 2.00 10/23/17 21:00 Nasal Cannula 4.00 10/23/17 20:00 98.4 70 16 119/58 (78) 92 Nasal Cannula 2.00 10/23/17 16:00 98.5 66 16 129/61 (83) 90 Nasal Cannula 2.00 10/23/17 15:47 98.5 66 18 129/61 90 Nasal Cannula 4.00 10/23/17 13:58 98.2 63 18 113/54 92 Room Air 10/23/17 13:42 98.1 64 18 109/51 96 Nasal Cannula 4.00 10/23/17 12:00 97.4 63 18 107/55 (72) 100 Nasal Cannula 2.00 10/23/17 08:00 98.6 62 16 153/67 (95) 100 Nasal Cannula 2.00 10/23/17 07:45 96 Nasal Cannula 4.00 I & O 10/24/17 07:00 Intake Total 3450 ml Output Total 751 ml Balance 2699 ml General Appearance: No Apparent Distress, WD/WN HEENT: PERRL/EOMI, Moist Mucous Membranes Neck: Non Tender, Supple Respiratory: Lungs Clear, No Respiratory Distress Cardiovascular: Regular Rate, Rhythm, No Murmur Capillary Refill: Less Than 3 Seconds Extremity: Non Tender, No Calf Tenderness Neurologic/Psychiatric: Alert, Oriented x3 Skin: Normal Color, Warm/Dry Lymphatic: No Adenopathy Results Lab Laboratory Tests 10/23/17 05:20 10/24/17 05:16 Assessment/Plan Assessment/Plan Pneumonia with hypoxemia - zosyn -brandon culture -Oxygen -Repeat CXR Mediastinal lymphadenopathy with hx of lymphoma Thrombocytopenia with stable Hb -oncology consulted- Lung mass possibly secondary to pneumonia -repeat CT scan 8 wks after treatment. 232 LIVE MAYEN DO Oct 24, 2017 06:24
[2017-10-24 06:45] LABS: BILIRUBIN,TOTAL 1.5 MG/DL (0.1-1.0); CALCIUM 9.1 MG/DL (8.5-10.1); CREATININE SERUM 0.99 MG/DL (0.60-1.30); TOTAL PROTEIN 7.1 GM/DL (6.4-8.2); URIC ACID 2.5 MG/DL (2.6-7.2)
[2017-10-24 08:00] VITALS: BP 126/61
[2017-10-24] MEDS ORDERED: diphenhydrAMINE 25 MG TAB (BENADRYL) CANCER CENTER PO SCH (08:30)
[2017-10-24] MEDS ORDERED: NS IV 1000 ML (CANCER CTR) IV SCH (08:30)
--- NOTE | 2017-10-24 08:40 | Diagnostic Imaging Report ---
INDICATION: Cough and shortness of air. Time of exam 8:26 AM Correlation is made with prior study from 10/21/2017. The heart size is stable. There is some increasing parenchymal density in the left base in the region of the costophrenic angle when compared with the examination 3 days earlier. Minimal patchy parenchymal density in the right base is also seen. The mid and upper lung lennon are clear. The pulmonary vasculature is unremarkable. No significant effusion is seen. There is no pneumothorax. IMPRESSION: Bibasilar parenchymal densities, increased since the examination 3 days earlier suggestive of mild pneumonia. Followup to confirm clearing is recommended. Dictated by: Dictated on workstation # [id number]
--- NOTE | 2017-10-24 08:42 | Cardiology Progress Note ---
Subjective Date Seen by Provider: Oct 24, 2017 Time Seen by Provider: 08:40 Subjective/Events-last exam Patient is in bed, no new complaints. Continues to report dyspnea with minimal exertion. Denies any CP. Review of Systems General: No Night Sweats, No Fatigue, No Malaise HEENT: No Visual Changes, No Dysphasia, No Sore Throat Pulmonary: No Dyspnea, No Cough Cardiovascular: No: Chest Pain, Palpitations, Paroxysmal Noc. Dyspnea, Edema Gastrointestinal: No: Nausea, Vomiting, Abdominal Pain Genitourinary: No Dysuria, No Frequency Musculoskeletal: No: neck pain, back pain Neurological: No: Weakness, Numbness, Change in speech, Confusion Objective-Cardiology Exam Last Set of Vital Signs Vital Signs 10/21/17 10/24/17 10/24/17 21:07 04:15 08:00 Temp 97.6 Pulse 66 Resp 17 B/P (MAP) 139/67 (91) Pulse Ox 95 O2 Delivery Nasal Cannula O2 Flow Rate 4.00 FiO2 28 Capillary Refill : Less Than 3 Seconds I&O Intake and Output 10/24/17 00:00 Intake Total 4550 ml Output Total 1881 ml Balance 2669 ml Intake Oral 2450 ml IV Total 2100 ml Output Urine Total 1881 ml # Voids 3 Daily Weight Change Yes, 2-13 lbs General: Alert, Oriented X3, Cooperative HEENT: Atraumatic, PERRLA Neck: Supple, No JVD, No Thyromegaly Lungs: Clear to Auscultation, Normal Air Movement Heart: Regular Rate, Normal S1, Normal S2, Other (systolic murmur at the left sternal border) Abdomen: Normal Bowel Sounds, Soft, No Tenderness, No Hepatosplenomegaly, No Masses Extremities: No Clubbing, No Cyanosis, No Edema, Normal Pulses, No Tenderness/ Swelling Skin: No Rashes, No Breakdown, No Significant Lesion Neuro: Normal Gait, Normal Speech, Strength at 5/5 X4 Ext, Normal Tone, Sensation Intact Psych/Mental Status: Mental Status NL, Mood NL Results Lab Laboratory Tests 10/24/17 05:16 A/P-Cardiology Admission Diagnosis Pneumonia CAD HTP HTN Assessment/Plan Pneumonia- continue antibiotics, management per Dr. Cat and hospitalist service. Severe pulmonary hypertension with right ventricular strain pattern, CT scan results were reviewed appeared to have lymph node obstructing the main pulmonary artery and the right pulmonary artery. Discussed the management plan with Dr. Durham and Dr. Candelario, she will need treatment for the lymph node, possible radiation therapy. Continue on chemotherapy for now. Continue to monitor closely Coronary artery disease, most recent cardiac catheterization December 2007 showing heavily calcified LAD with mild to moderate disease up to 60 percent stenosis at the mid LAD, otherwise mild to moderate disease in the rest of the coronary system, stress test done in May 2016 showing no ischemia or infarction with typical female pattern. Continue to monitor Pulmonary hypertension, baseline of 50 mmHg, currently increased to 75 mmHg. Right ventricular strain pattern. Probably secondary to the lymph nodes. Thrombocytopenia- continue to monitor. Management per Dr. Youssef. RBBB, chronic Hypertension, controlled, continue to monitor. Hyperlipidemia, controlled. Lipid/LFTs due again in June 2018, continue to monitor Mild bilateral nonobstructive carotid artery stenosis per carotid duplex Apr 2017, continue to monitor. History of non-Hodgkin's lymphoma, CLL, diagnosed and treated in 2003. Currently seeing and followed by Dr. Rayna Youssef, discussed the management plan with Dr. Durham. Possible initiating radiation therapy for the lymph nodes Cespedes's esophagus History of one episode of atrial fibrillation, continued be maintained in sinus rhythm. Continue to monitor. Clinical Quality Measures DVT/VTE Risk/Contraindication: Risk Factor Score Per Nursin RFS Level Per Nursing on Admit: 3=High DENNIS BOOKER Oct 24, 2017 08:42
[2017-10-24] MEDS ORDERED: RT-ALBUTEROL SULF 2.5 MG/3 ML PRE-MIX VIAL INH PRN (09:15)
--- NOTE | 2017-10-24 10:03 | Progress Note-Hospitalist ---
Subjective HPI/CC On Admission Date Seen by Provider: Oct 24, 2017 Time Seen by Provider: 09:58 Pt is an 82yoCF with a PMH of CLL, HTN, CAD who presented to the ER for SOB and cough. Her history is limited due to her dementia. She reports symptoms she was told she was having only. She states she was told she was coughing and SOB with some phlegm production. She states she is feeling well now with no complaints. She has a friend at bedside who states she had also complained of some left sided rib pain. She otherwise has very few complaints and states she has no medical problems other than her CLL but I am unsure if this is accurate due to dementia. Subjective/Events-last exam Pt reports feeling well today. No complaints. She is breathing well. Went for walk withour BRAMBILA or chest pain. No other concerns or questions. Objective Exam Vital Signs Vital Signs Date Time Temp Pulse Resp B/P (MAP) Pulse Ox O2 Delivery O2 Flow Rate FiO2 10/21/17 15:17 95.1 67 30 137/77 (97) 92 Room Air 10/21/17 15:20 2.00 10/21/17 21:07 28 Capillary Refill : Less Than 3 Seconds General Appearance: No Apparent Distress, WD/WN Respiratory: Lungs Clear, No Respiratory Distress Cardiovascular: Regular Rate, Rhythm, No Murmur Gastrointestinal: Normal Bowel Sounds, Non Tender, Soft Neurologic/Psychiatric: Alert, Oriented x3 Skin: Normal Color, Warm/Dry Results/Procedures Lab Laboratory Tests 10/24/17 05:16 Assessment/Plan Assessment and Plan Assess & Plan/Chief Complaint Severe Pulmonary Hypertension Diagnosis/Problems Diagnosis/Problems (1) Pulmonary hypertension Assessment & Plan: Likely due to adenopathy Discussed with Dr Salgado and Dr Youssef while reviewing echo images on 10/23 Concerning for development of right heart failure due to adenopathy Chemotherapy started yesterday per Dr Youssef, second dose today (2) CAP (community acquired pneumonia) Assessment & Plan: met sepsis criteria on arrival (now resolved) hypothermia and leukocytosis with pneumonia Leukocytosis trending down Continue on abx- Zosyn CXR shows increase infiltrate- will wait to deescalate until tomorrow Blood cultures NGTD Sputum culture if able Pulm consulted, appreciate recs MAT protocol Titrate O2 as able, discussed with RN Qualifiers: Qualified Codes: J18.1 - Lobar pneumonia, unspecified organism (3) Thrombocytopenia Assessment & Plan: Chronic Hem consulted, appreciate recs Plts improved after transfusion (4) CLL (chronic lymphocytic leukemia) Assessment & Plan: Follows with Dr Youssef, appreciate recs (5) Dementia Assessment & Plan: Pleasantly confused reorient as needed Qualifiers: Qualified Codes: F03.90 - Unspecified dementia without behavioral disturbance (6) Prophylactic measure Assessment & Plan: Saline lock SCDs due to thrombocytopenia Regular Diet FREDDY JARQUIN MD Oct 24, 2017 10:03
--- NOTE | 2017-10-24 10:05 | Physical Therapy Daily Note ---
PT Daily Note-Current Subjective Agreeable. No complaints. "I feel good." Son expresses she has some confusion. Pt unable to recall if she has had breakfast., Mental Status Patient Orientation: Person, Confused, Place Transfers Functional [place] Measure 0=Not Assessed/NA 4=Minimal Assistance 1=Total Assistance 5=Supervision or Setup 2=Maximal Assistance 6=Modified [place] 3=Moderate Assistance 7=Complete IndependenceIRFPAI Quality Coding Scale 6 Independent with activity with or without an assistive device 5 Patient requires set up or clean up by helper. Patient completes activity by themselves 4 Supervision or touching assist (CGA). [place] provide cues , steadying assist 3 The helper provides less than half the effort to complete the activity 2 The helper provides more than half the effort to complete the activity 1 Dependent. The helper does all the effort to complete an activity 7 Patient refused to complete or attempt activity 9 The patient did not perform the activity before the current illness or injury 88 Not attempted due to Medical conditions or safety concerns Transfers (B, C, W/C) (FIM): 6 Mod indep with bed mobility and transfers. No assist needed. Weight Bearing Right Lower Extremity: Right Weight Bearing/Tolerated Left Lower Extremity: Left Weight Bearing/Tolerated Gait Training Gait (FIM): 6 Distance (FIM): 3=150 ft Distance: 450 ft Gait Level of Assist: 6 asssist with oxygen and IV pole. No assist for gait. Pt able to manage obstacles in her room as well. No noted LOB. Treatments Pt up in chair post treatment with needs met and chair alarm activtated. Son present and going to assist with ordering breakfast. Assessment Slight confusion noted. Safe with gait. Continue to follow as she needs assist with her IV and oxygen attachements. If she continues to do well with discharge from PT tomorrow or the next day. PT Ch[facility] Goals Chcf Goals PT Director [employer] Goals Time Frame: Oct 26, 2017 Transfers (B,C,W/C) (FIM): 7 Gait (FIM): 7 PT Plan Problem List Problem List: Activity Tolerance, Functional Strength, Safety Treatment/Plan Treatment Plan: Continue Plan of Care Treatment Plan: Bed Mobility, Education, Functional Activity Connor, Functional Strength, Gait, Safety, Therapeutic Exercise, Transfers Treatment Duration: Oct 26, 2017 Frequency: 6 times per week Estimated Hrs Per Day: .25 hour per day Patient and/or Family Agrees t: Yes Safety Risks/Education Patient Education: Safety Issues Teaching Recipient: Patient Teaching Methods: Discussion Response to Teaching: Return Demonstration, Reinforcement Needed Time/GCodes Time In: 935 Time Out: 950 Total Billed Treatment Time: 15 Total Billed Treatment visit GT 15 SHELLEY MAHONEY PT Oct 24, 2017 10:05
--- NOTE | 2017-10-24 11:39 | Occupational Ther Daily Note ---
OT Current Status-Daily Note Subjective Pt alert, sitting in recliner. Son present in room. Pt agreed to therapy. No c/o pain. Mental Status/Objective Patient Orientation: Person Functional [place] Measure 0=Not Assessed/NA 4=Minimal Assistance 1=Total Assistance 5=Supervision or Setup 2=Maximal Assistance 6=Modified [place] 3=Moderate Assistance 7=Complete [place] Attachments: IV ADL-Treatment Pt ambulated to bathroom and transferred onto and off of toilet then manipulated clothing and completed hygiene with supervision using grabbar. Pt then ambulated into and out of shower using shower bench and grabbar with SBA. SBA for bathing, pt able to reach all areas though continued to stand then placed foot on bench to cleanse while holding onto grabbar. No LOB noted. Pt then was able to complete upper body dressing by self after set up. SBA for lower body dressing, pt stood to dress and used grabbar to stabilize self while stepping into pants. Pt stood at sink to complete own grooming with supervision. Pt then ambulated back to bed and was able to position self in bed. Pt donned/doffed socks while sitting. After therapy, pt lying in bed with safety measures in place. Call light/phone in reach. All needs met in room. OT Short Term Goals Short Term Goals Additional Short Term Goals: 2-Verbalize Understanding, 3-ImproveStrength/Connor 1=Demonstrate adherence to instructed precautions during ADL tasks. 2=Patient will verbalize/demonstrate understanding of assistive devices/ modifications for ADL. 3=Patient will improve strength/tolerance for activity to enable patient to perform ADL's. OT Manager [employer] Goals [place] Goals Time Frame: Oct 29, 2017 Grooming(FIM): 6 Bathing(FIM): 6 Upper Body Dressing(FIM): 6 Lower Body Dressing(FIM): 6 Toileting(FIM): 6 Toilet/Commode Transfer(FIM): 6 Shower Transfer(FIM): 6 1=Demonstrate adherence to instructed precautions during ADL tasks. 2=Patient will verbalize/demonstrate understanding of assistive devices/ modifications for ADL. 3=Patient will improve strength/tolerance for activity to enable patient to perform ADL's. OT Education/Plan Problem List/Assessment Pt would benefit from skilled OT to increase her independence in basic self care and to decrease caregiver burden Discharge Recommendations Plan/Recommendations: Continue POC Treatment Plan/Plan of Care Patient would benefit from OT for education, treatment and training to promote independence in ADL's, mobility, safety and/or upper extremity function for ADL' s. Plan of Care: Functional Mobility, UE Funct Exercise/Act Treatment Duration: Oct 29, 2017 Frequency: 5 times per week Estimated Hrs Per Day: .5 hour per day (.25 to .5) Agreement: Yes Rehab Potential: Good Time/GCodes Start Time: 11:00 Stop Time: 11:32 Total Time Billed (hr/min): 32 Billed Treatment Time 1 visit-ADL 2 (32 min) SHELLEY BROCK Oct 24, 2017 11:39
[2017-10-24 12:00] VITALS: BP 135/59
[2017-10-24] MEDS: PIPERACILLIN SODIUM/TAZOBACTAM 4.5 GM in NS (IVPB) 100 ML IV SCH ×2 (14:43→21:26)
--- NOTE | 2017-10-24 15:05 | Progress Note-Standard ---
Standard Progress Note Progress Notes/Assess & Plan Date Seen by Provider: Oct 24, 2017 Time Seen by Provider: 09:30 Progress/Assessment & Plan 82-year-old female with history of CLL/SLL who was admitted with cough and pleuritic left lower chest wall pain due to probable pneumonia. Currently on broad-spectrum antibiotics. Admission CT scan showed enlarging lymph nodes in the mediastinum causing narrowing of pulmonary artery. Patient had echocardiogram done which showed significant right heart strain and increasing pulmonary artery pressure due to narrowing of the pulmonary artery. Thrombocytopenia also worsening significantly. Patient was started on chemotherapy with Treanda on 10/23/2017 and tolerated this well. She is due for day 2 chemotherapy today and we will proceed with this. Lab work done today was reviewed with no evidence of tumor lysis. Platelets 23, 000 after a transfusion yesterday. Patient denied any new problems. Her activity level has been low. No fevers or chills. Continue antibiotic therapy. Add incentive spirometry. Increase activity with physical therapy. I will repeat lab work tomorrow morning. MANISHA MAYFIELD Oct 24, 2017 15:05
--- NOTE | 2017-10-24 15:55 | Cardiology Progress Note ---
Subjective Date Seen by Provider: Oct 24, 2017 Time Seen by Provider: 14:40 Subjective/Events-last exam Patient is laying down in bed, feeling better. Denied any chest pain or shortness of breath Review of Systems General: No Chills, No Night Sweats, No Fatigue, No Malaise, No Appetite, No Other HEENT: No Head Aches, No Visual Changes, No Eye Pain, No Ear Pain, No Dysphasia , No Sinus Congestion, No Post Nasal Drip, No Sore Throat, No Other Pulmonary: No Dyspnea, No Cough, No Pleuritic Chest Pain, No Other Cardiovascular: No: Chest Pain, Palpitations, Orthopnea, Paroxysmal Noc. Dyspnea, Edema, Lt Headedness, Other Objective-Cardiology Exam Last Set of Vital Signs Vital Signs 10/24/17 10/24/17 08:54 12:00 Temp 98.1 Pulse 76 Resp 18 B/P (MAP) 135/59 (84) Pulse Ox 96 O2 Delivery Nasal Cannula O2 Flow Rate 2.00 FiO2 36 Capillary Refill : Less Than 3 Seconds I&O Intake and Output 10/24/17 00:00 Intake Total 4550 ml Output Total 1881 ml Balance 2669 ml Intake Oral 2450 ml IV Total 2100 ml Output Urine Total 1881 ml # Voids 3 Daily Weight Change Yes, 2-13 lbs General: Alert, Oriented X3, Cooperative HEENT: Atraumatic, PERRLA Neck: Supple, No JVD, No Thyromegaly Lungs: Clear to Auscultation, Normal Air Movement Heart: Regular Rate, Normal S1, Normal S2, Other (systolic murmur at the left sternal border) Abdomen: Normal Bowel Sounds, Soft, No Tenderness, No Hepatosplenomegaly, No Masses Extremities: No Clubbing, No Cyanosis, No Edema, Normal Pulses, No Tenderness/ Swelling Skin: No Rashes, No Breakdown, No Significant Lesion Neuro: Normal Gait, Normal Speech, Strength at 5/5 X4 Ext, Normal Tone, Sensation Intact Psych/Mental Status: Mental Status NL, Mood NL Results Lab Laboratory Tests 10/24/17 05:16 A/P-Cardiology Admission Diagnosis Pneumonia CAD HTP HTN Assessment/Plan Pneumonia- continue antibiotics, management per Dr. Cat and hospitalist service. Severe pulmonary hypertension with right ventricular strain pattern, CT scan results were reviewed appeared to have lymph node obstructing the main pulmonary artery and the right pulmonary artery. Discussed the management plan with Dr. Durham and Dr. Candelario, she will need treatment for the lymph node, possible radiation therapy. Continue on chemotherapy for now. Continue to monitor closely Coronary artery disease, most recent cardiac catheterization December 2007 showing heavily calcified LAD with mild to moderate disease up to 60 percent stenosis at the mid LAD, otherwise mild to moderate disease in the rest of the coronary system, stress test done in May 2016 showing no ischemia or infarction with typical female pattern. Continue to monitor Pulmonary hypertension, baseline of 50 mmHg, currently increased to 75 mmHg. Right ventricular strain pattern. Probably secondary to the lymph nodes. Thrombocytopenia- continue to monitor. Management per Dr. Youssef. RBBB, chronic Hypertension, controlled, continue to monitor. Hyperlipidemia, controlled. Lipid/LFTs due again in June 2018, continue to monitor Mild bilateral nonobstructive carotid artery stenosis per carotid duplex Apr 2017, continue to monitor. History of non-Hodgkin's lymphoma, CLL, diagnosed and treated in 2003. Currently seeing and followed by Dr. Rayna Youssef, discussed the management plan with Dr. Durham. Possible initiating radiation therapy for the lymph nodes Cespedes's esophagus History of one episode of atrial fibrillation, continued be maintained in sinus rhythm. Continue to monitor. Clinical Quality Measures DVT/VTE Risk/Contraindication: Risk Factor Score Per Nursin RFS Level Per Nursing on Admit: 3=High BAL LIGHT MD Oct 24, 2017 15:55
[2017-10-24 16:00] VITALS: BP 113/55
[2017-10-24] MEDS ORDERED: SENNA W/DOCUSATE (SENOKOT S) TABLET PO PRN (16:00)
[2017-10-24] MEDS: RT-ALBUTEROL SULF 2.5 MG/3 ML PRE-MIX VIAL INH SCH (19:41)
[2017-10-24] MEDS: SIMvastatin 40 MG (ZOCOR) TAB PO SCH (19:42)
[2017-10-24] MEDS: ALLOPURINOL 300 MG (ZYLOPRIM) TAB PO SCH (19:42)
[2017-10-24 20:00] VITALS: BP 127/60
[2017-10-24] MEDS: POLYETHYLENE GLYCOL 17 GM (MIRALAX) PACK PO SCH (21:25)
[2017-10-25] VITALS: BP 138/63
[2017-10-25] MEDS: PIPERACILLIN SODIUM/TAZOBACTAM 4.5 GM in NS (IVPB) 100 ML IV SCH ×3 (05:26→20:52)
[2017-10-25 06:30] LABS: BASOPHILS % (AUTO) 0 % (0-10); EOSINOPHILS % (AUTO) 0 % (0-10); HEMATOCRIT 32 % (35-52); HEMOGLOBIN 10.3 G/DL (11.5-16.0); LYMPHOCYTES % (AUTO) 63 % (12-44); MEAN CORPUSCULAR HEMOGLOBIN 27 PG (25-34); MEAN CORPUSCULAR HGB CONC 32 G/DL (32-36); MEAN CORPUSCULAR VOLUME 83 FL (80-99); MONOCYTES # (AUTO) 0.4 X 10^3 (0.0-1.0); MONOCYTES % (AUTO) 2 % (0-12); NEUTROPHILS # (AUTO) 6.1 X 10^3 (1.8-7.8); NEUTROPHILS % (AUTO) 35 % (42-75); RED BLOOD COUNT 3.82 10^6/uL (4.35-5.85); RED CELL DISTRIBUTION WIDTH 14.9 % (10.0-14.5); WHITE BLOOD COUNT 17.5 10^3/uL (4.3-11.0)
[2017-10-25 06:36] LABS: PLATELET COUNT 28 10^3/uL (130-400)
[2017-10-25] MEDS: RT-ALBUTEROL SULF 2.5 MG/3 ML PRE-MIX VIAL INH SCH ×2 (06:47→20:37)
[2017-10-25 06:50] LABS: CALCIUM 8.6 MG/DL (8.5-10.1); CREATININE SERUM 0.93 MG/DL (0.60-1.30); POTASSIUM 4.3 MMOL/L (3.6-5.0); URIC ACID 1.9 MG/DL (2.6-7.2)
--- NOTE | 2017-10-25 07:11 | Pulmonary Progress Note ---
Subjective Time Seen by Provider: 07:28 Subjective/Events-last exam pt appears improved. Exam Exam Vital Signs Date Time Temp Pulse Resp B/P (MAP) Pulse Ox O2 Delivery O2 Flow Rate FiO2 10/25/17 06:48 95 Nasal Cannula 3.00 10/25/17 00:00 97.7 52 16 138/63 (88) 99 Nasal Cannula 4.00 10/24/17 21:00 Nasal Cannula 3.00 10/24/17 20:00 97.2 60 20 127/60 (82) 94 Nasal Cannula 2.00 10/24/17 19:43 90 Nasal Cannula 3.00 10/24/17 16:00 97.2 63 18 113/55 (74) 92 Nasal Cannula 2.00 10/24/17 12:00 98.1 76 18 135/59 (84) 96 Nasal Cannula 2.00 10/24/17 08:54 51 97 36 10/24/17 08:54 97 Nasal Cannula 4.00 10/24/17 08:00 97.4 81 18 126/61 (82) 97 Nasal Cannula 2.00 10/24/17 08:00 Nasal Cannula 4.00 I & O 10/25/17 07:00 Intake Total 1770 ml Output Total 1975 ml Balance -205 ml General Appearance: No Apparent Distress, WD/WN HEENT: PERRL/EOMI, Moist Mucous Membranes Neck: Non Tender, Supple Respiratory: Lungs Clear, No Respiratory Distress Cardiovascular: Regular Rate, Rhythm, No Murmur Capillary Refill: Less Than 3 Seconds Extremity: Non Tender, No Calf Tenderness Neurologic/Psychiatric: Alert, Oriented x3 Skin: Normal Color, Warm/Dry Lymphatic: No Adenopathy Results Lab Laboratory Tests 10/24/17 05:16 10/25/17 05:45 Assessment/Plan Assessment/Plan Pneumonia with hypoxemia - zosyn -brandon culture -Oxygen Atelectasis -Increase activity -Repeat CBC in AM -IS x 10breaths Q1hr Mediastinal lymphadenopathy with hx of lymphoma Thrombocytopenia with stable Hb -oncology consulted- Lung mass possibly secondary to pneumonia -repeat CT scan 8 wks after treatment. 232 LIVE MAYEN DO Oct 25, 2017 07:11
[2017-10-25 08:00] VITALS: BP 123/58
[2017-10-25] MEDS: BISACODYL 5 MG (DULCOLAX) TABLET PO SCH (08:54)
--- NOTE | 2017-10-25 09:53 | Physical Therapy Daily Note ---
PT Daily Note-Current Subjective Agrees. No complaints. Transfers Functional [place] Measure 0=Not Assessed/NA 4=Minimal Assistance 1=Total Assistance 5=Supervision or Setup 2=Maximal Assistance 6=Modified [place] 3=Moderate Assistance 7=Complete IndependenceIRFPAI Quality Coding Scale 6 Independent with activity with or without an assistive device 5 Patient requires set up or clean up by helper. Patient completes activity by themselves 4 Supervision or touching assist (CGA). [place] provide cues , steadying assist 3 The helper provides less than half the effort to complete the activity 2 The helper provides more than half the effort to complete the activity 1 Dependent. The helper does all the effort to complete an activity 7 Patient refused to complete or attempt activity 9 The patient did not perform the activity before the current illness or injury 88 Not attempted due to Medical conditions or safety concerns Transfers (B, C, W/C) (FIM): 6 mod indep with transfers and bed mobility Weight Bearing Right Lower Extremity: Right Weight Bearing/Tolerated Left Lower Extremity: Left Weight Bearing/Tolerated Gait Training Gait (FIM): 6 Distance (FIM): 3=150 ft Distance: 500 ft Gait Assistive Device: None Pt ambulated without assist and is safe. The concern is that she is slightly confused and this could be risk for ambulation. Will continue to monitor gait tomorrow. Treatments Pt toileted after ambulation. Up in chair with alarm activated and oxygen in situ. Assessment Current Status: Good Progress Safe gait and balance; some confusion noted. PT [facility] Goals [employer] Operator Goals PT Wave [employer] Operator Goals Time Frame: Oct 26, 2017 Transfers (B,C,W/C) (FIM): 7 Gait (FIM): 7 PT Plan Problem List Problem List: Activity Tolerance, Functional Strength, Safety Treatment/Plan Treatment Plan: Continue Plan of Care Treatment Plan: Bed Mobility, Education, Functional Activity [place], Functional Strength, Gait, Safety, Therapeutic Exercise, Transfers Treatment Duration: Oct 26, 2017 Frequency: 6 times per week Estimated Hrs Per Day: .25 hour per day Patient and/or Family Agrees t: Yes Safety Risks/Education Patient Education: Safety Issues Teaching Recipient: Patient Teaching Methods: Discussion Response to Teaching: Return Demonstration Time/GCodes Time In: 930 Time Out: 953 Total Billed Treatment Time: 23 Total Billed Treatment visit GT 23 SHELLEY MAHONEY PT Oct 25, 2017 09:53
--- NOTE | 2017-10-25 11:43 | Progress Note-Hospitalist ---
Subjective HPI/CC On Admission Date Seen by Provider: Oct 25, 2017 Time Seen by Provider: 11:00 Pt is an 82yoCF with a PMH of CLL, HTN, CAD who presented to the ER for SOB and cough. Her history is limited due to her dementia. She reports symptoms she was told she was having only. She states she was told she was coughing and SOB with some phlegm production. She states she is feeling well now with no complaints. She has a friend at bedside who states she had also complained of some left sided rib pain. She otherwise has very few complaints and states she has no medical problems other than her CLL but I am unsure if this is accurate due to dementia. Subjective/Events-last exam Pt is up in bathroom washing face. No complaints. Has been up ambulating. Eating and drinking well. No abd pain. Feeling better. Son at beside and wondering about discharge planning. Objective Exam Vital Signs Vital Signs Date Time Temp Pulse Resp B/P (MAP) Pulse Ox O2 Delivery O2 Flow Rate FiO2 10/21/17 15:17 95.1 67 30 137/77 (97) 92 Room Air 10/21/17 15:20 2.00 10/21/17 21:07 28 Capillary Refill : Less Than 3 Seconds General Appearance: No Apparent Distress, WD/WN Respiratory: Lungs Clear, No Respiratory Distress Cardiovascular: Regular Rate, Rhythm, No Edema Gastrointestinal: Normal Bowel Sounds, Non Tender, Soft Extremity: Non Tender, No Calf Tenderness, No Pedal Edema Neurologic/Psychiatric: Alert, Oriented x3, No Motor/Sensory Deficits Results/Procedures Lab Laboratory Tests 10/25/17 05:45 Assessment/Plan Assessment and Plan Assess & Plan/Chief Complaint Severe Pulmonary Hypertension Diagnosis/Problems Diagnosis/Problems (1) Pulmonary hypertension Assessment & Plan: Likely due to adenopathy Discussed with Dr Salgado and Dr Youssef while reviewing echo images on 10/23 Concerning for development of right heart failure due to adenopathy Chemotherapy started 10/[address] Youssef, second dose 10/24 (2) CAP (community acquired pneumonia) Assessment & Plan: met sepsis criteria on arrival (now resolved) hypothermia and leukocytosis with pneumonia Leukocytosis up but got decadron with chemo Continue on Zosyn Blood cultures NGTD Sputum culture if able Pulm consulted, appreciate recs MAT protocol Titrate O2 as able, discussed with RN Qualifiers: Qualified Codes: J18.1 - Lobar pneumonia, unspecified organism (3) Thrombocytopenia Assessment & Plan: Chronic Hem consulted, appreciate recs Plts improving (4) CLL (chronic lymphocytic leukemia) Assessment & Plan: Follows with Dr Youssef, appreciate recs (5) Dementia Assessment & Plan: Pleasantly confused reorient as needed Qualifiers: Qualified Codes: F03.90 - Unspecified dementia without behavioral disturbance (6) Prophylactic measure Assessment & Plan: Saline lock SCDs due to thrombocytopenia Regular Diet FREDDY JARQUIN MD Oct 25, 2017 11:43 am
--- NOTE | 2017-10-25 13:54 | Cardiology Progress Note ---
Subjective Date Seen by Provider: Oct 25, 2017 Time Seen by Provider: 13:54 Subjective/Events-last exam Patient is laying down in bed, feeling better today. Denied any chest pain, no shortness of breath Review of Systems General: No Chills, No Night Sweats, No Fatigue, No Malaise, No Appetite, No Other HEENT: No Head Aches, No Visual Changes, No Eye Pain, No Ear Pain, No Dysphasia , No Sinus Congestion, No Post Nasal Drip, No Sore Throat, No Other Pulmonary: No Dyspnea, No Cough, No Pleuritic Chest Pain, No Other Cardiovascular: No: Chest Pain, Palpitations, Orthopnea, Paroxysmal Noc. Dyspnea, Edema, Lt Headedness, Other Objective-Cardiology Exam Last Set of Vital Signs Vital Signs 10/24/17 10/25/17 10/25/17 08:54 08:00 08:57 Temp 97.0 Pulse 76 Resp 18 B/P (MAP) 123/58 (79) Pulse Ox 91 O2 Delivery Nasal Cannula O2 Flow Rate 3.00 FiO2 36 Capillary Refill : Less Than 3 Seconds I&O Intake and Output 10/25/17 00:00 Intake Total 1770 ml Output Total 1775 ml Balance -5 ml Intake Oral 1570 ml IV Total 200 ml Output Urine Total 1775 ml # Bowel Movements 1 General: Alert, Oriented X3, Cooperative HEENT: Atraumatic, PERRLA Neck: Supple, No JVD, No Thyromegaly Lungs: Clear to Auscultation, Normal Air Movement Heart: Regular Rate, Normal S1, Normal S2, Other (systolic murmur at the left sternal border) Abdomen: Normal Bowel Sounds, Soft, No Tenderness, No Hepatosplenomegaly, No Masses Extremities: No Clubbing, No Cyanosis, No Edema, Normal Pulses, No Tenderness/ Swelling Skin: No Rashes, No Breakdown, No Significant Lesion Neuro: Normal Gait, Normal Speech, Strength at 5/5 X4 Ext, Normal Tone, Sensation Intact Psych/Mental Status: Mental Status NL, Mood NL Results Lab Laboratory Tests 10/25/17 05:45 A/P-Cardiology Admission Diagnosis Pneumonia CAD HTP HTN Assessment/Plan Severe pulmonary hypertension with right ventricular strain pattern, CT scan results were reviewed appeared to have lymph node obstructing the main pulmonary artery and the right pulmonary artery. Discussed the management plan with Dr. Durham and Dr. Candelario, she will need treatment for the lymph node, possible radiation therapy. Continue on chemotherapy for now. Continue to monitor closely Coronary artery disease, most recent cardiac catheterization December 2007 showing heavily calcified LAD with mild to moderate disease up to 60 percent stenosis at the mid LAD, otherwise mild to moderate disease in the rest of the coronary system, stress test done in May 2016 showing no ischemia or infarction with typical female pattern. Continue to monitor Pulmonary hypertension, baseline of 50 mmHg, currently increased to 75 mmHg. Right ventricular strain pattern. Probably secondary to the lymph nodes. Thrombocytopenia- continue to monitor. Management per Dr. Youssef. RBBB, chronic Hypertension, controlled, continue to monitor. Hyperlipidemia, controlled. Lipid/LFTs due again in June 2018, continue to monitor Mild bilateral nonobstructive carotid artery stenosis per carotid duplex Apr 2017, continue to monitor. History of non-Hodgkin's lymphoma, CLL, diagnosed and treated in 2003. Currently seeing and followed by Dr. Rayna Youssef, discussed the management plan with Dr. Durham. Possible initiating radiation therapy for the lymph nodes Cespedes's esophagus History of one episode of atrial fibrillation, continued be maintained in sinus rhythm. Continue to monitor. Clinical Quality Measures DVT/VTE Risk/Contraindication: Risk Factor Score Per Nursin RFS Level Per Nursing on Admit: 3=High BAL LIGHT MD Oct 25, 2017 13:54
--- NOTE | 2017-10-25 14:42 | Occ Therapy Progress Note ---
Therapy Progress Note Pt sitting up in recliner with family present. Pt unable to complete daily tasks with R UE at this time due to placement of IV and nrsg wants pt to keep arm straight. Pt requires reminders to not use arm during tasks. Pt has demonstrated ability to complete own bathing, toileting, dressing and feeding, supervision due to mild confusion. D/C pt from OT services at this time. 1 visit SHELLEY BROCK Oct 25, 2017 14:42
[2017-10-25 16:01] VITALS: BP 104/55
[2017-10-25] MEDS: ALLOPURINOL 300 MG (ZYLOPRIM) TAB PO SCH (17:09)
[2017-10-25] MEDS: SIMvastatin 40 MG (ZOCOR) TAB PO SCH (17:09)
--- NOTE | 2017-10-25 17:52 | Progress Note-Standard ---
Standard Progress Note Progress Notes/Assess & Plan Date Seen by Provider: Oct 25, 2017 Time Seen by Provider: 17:48 Progress/Assessment & Plan 82-year-old female with history of CLL/SLL who was admitted with cough and pleuritic left lower chest wall pain due to probable pneumonia. Currently on broad-spectrum antibiotics. Admission CT scan showed enlarging lymph nodes in the mediastinum causing narrowing of pulmonary artery. Patient had echocardiogram done which showed significant right heart strain and increasing pulmonary artery pressure due to narrowing of the pulmonary artery. Thrombocytopenia also worsening significantly. Patient completed chemotherapy with Treanda yesterday and tolerated this well. No nausea or vomiting. She ambulated in the hallways with physical therapy. Still needing low-flow oxygen. Eating well. No diarrhea, constipation, hematochezia or melena. Laboratory Tests 10/25/17 05:45 Continue management of pneumonia as you are doing. Okay to discharge when stable from medical standpoint. Patient needs to follow up at the cancer center on 10/30/2017 for lab work and treatment with Rituxan. Monitor CBC and electrolytes tomorrow morning. MANISHA MAYFIELD Oct 25, 2017 17:52
[2017-10-25] MEDS: POLYETHYLENE GLYCOL 17 GM (MIRALAX) PACK PO SCH (20:51)
[2017-10-26] VITALS: BP 124/62
[2017-10-26] MEDS: PIPERACILLIN SODIUM/TAZOBACTAM 4.5 GM in NS (IVPB) 100 ML IV SCH (06:13)
[2017-10-26 06:56] LABS: BASOPHILS % (AUTO) 0 % (0-10); EOSINOPHILS # (AUTO) 0.1 10^3/uL (0.0-0.3); EOSINOPHILS % (AUTO) 1 % (0-10); HEMATOCRIT 33 % (35-52); HEMOGLOBIN 10.7 G/DL (11.5-16.0); LYMPHOCYTES % (AUTO) 66 % (12-44); MEAN CORPUSCULAR HEMOGLOBIN 27 PG (25-34); MEAN CORPUSCULAR HGB CONC 32 G/DL (32-36); MEAN CORPUSCULAR VOLUME 84 FL (80-99); MEAN PLATELET VOLUME 11.3 FL (7.4-10.4); MONOCYTES # (AUTO) 0.3 X 10^3 (0.0-1.0); MONOCYTES % (AUTO) 2 % (0-12); NEUTROPHILS # (AUTO) 4.9 X 10^3 (1.8-7.8); NEUTROPHILS % (AUTO) 32 % (42-75); RED BLOOD COUNT 3.95 10^6/uL (4.35-5.85); RED CELL DISTRIBUTION WIDTH 15.1 % (10.0-14.5); WHITE BLOOD COUNT 15.2 10^3/uL (4.3-11.0)
[2017-10-26 06:57] LABS: PLATELET COUNT 29 10^3/uL (130-400)
[2017-10-26 07:11] LABS: CALCIUM 8.5 MG/DL (8.5-10.1); CREATININE SERUM 1.04 MG/DL (0.60-1.30); POTASSIUM 3.9 MMOL/L (3.6-5.0)
--- NOTE | 2017-10-26 07:23 | Cardiology Progress Note ---
Subjective Date Seen by Provider: Oct 26, 2017 Time Seen by Provider: 07:17 Subjective/Events-last exam Patient is in bed, feeling better, denied any chest pain, breathing is better, no fever Review of Systems General: No Chills, No Night Sweats, No Fatigue, No Malaise, No Appetite, No Other HEENT: No Head Aches, No Visual Changes, No Eye Pain, No Ear Pain, No Dysphasia , No Sinus Congestion, No Post Nasal Drip, No Sore Throat, No Other Pulmonary: Dyspnea, No Cough, No Pleuritic Chest Pain, No Other Cardiovascular: No: Chest Pain, Palpitations, Orthopnea, Paroxysmal Noc. Dyspnea, Edema, Lt Headedness, Other Objective-Cardiology Exam Last Set of Vital Signs Vital Signs 10/24/17 10/26/17 08:54 00:00 Temp 97.8 Pulse 74 Resp 16 B/P (MAP) 124/62 (82) Pulse Ox 92 O2 Delivery Nasal Cannula O2 Flow Rate 2.00 FiO2 36 Capillary Refill : Less Than 3 Seconds I&O Intake and Output 10/26/17 00:00 Intake Total 1840 ml Output Total 1425 ml Balance 415 ml Intake Oral 1640 ml IV Total 200 ml Output Urine Total 1425 ml # Voids 3 # Bowel Movements 7 General: Alert, Oriented X3, Cooperative HEENT: Atraumatic, PERRLA Neck: Supple, No JVD, No Thyromegaly Lungs: Clear to Auscultation, Normal Air Movement Heart: Regular Rate, Normal S1, Normal S2, Other (systolic murmur at the left sternal border) Abdomen: Normal Bowel Sounds, Soft, No Tenderness, No Hepatosplenomegaly, No Masses Extremities: No Clubbing, No Cyanosis, No Edema, Normal Pulses, No Tenderness/ Swelling Skin: No Rashes, No Breakdown, No Significant Lesion Neuro: Normal Gait, Normal Speech, Strength at 5/5 X4 Ext, Normal Tone, Sensation Intact Psych/Mental Status: Mental Status NL, Mood NL Results Lab Laboratory Tests 10/26/17 06:45 A/P-Cardiology Admission Diagnosis Pneumonia CAD HTP HTN Assessment/Plan Severe pulmonary hypertension with right ventricular strain pattern, CT scan results were reviewed appeared to have lymph node compressing the pulmonary artery and resulting in right heart chamber strain and dilatation, started on chemotherapy Pneumonia, leukocytosis, receiving antibiotics and followed by primary care physician Coronary artery disease, most recent cardiac catheterization December 2007 showing heavily calcified LAD with mild to moderate disease up to 60 percent stenosis at the mid LAD, otherwise mild to moderate disease in the rest of the coronary system, stress test done in May 2016 showing no ischemia or infarction with typical female pattern. Continue to monitor Thrombocytopenia, improving, no active bleeding, followed by Dr Youssef RBBB, chronic Hypertension, controlled, continue to monitor. Hyperlipidemia, controlled. Lipid/LFTs due again in June 2018, continue to monitor Mild bilateral nonobstructive carotid artery stenosis per carotid duplex Apr 2017, continue to monitor. History of non-Hodgkin's lymphoma, CLL, diagnosed and treated in 2003. Currently seeing and followed by Dr. Rayna Youssef, discussed the management plan with Dr. Durham. Possible initiating radiation therapy for the lymph nodes Cespedes's esophagus History of one episode of atrial fibrillation, continued be maintained in sinus rhythm. Continue to monitor. Okay for discharge from cardiology standpoint, follow up in my office in 2-4 weeks I will sign off, thank you for allowing us to participate in the management of Mrs March Clinical Quality Measures DVT/VTE Risk/Contraindication: Risk Factor Score Per Nursin RFS Level Per Nursing on Admit: 3=High BAL LIGHT MD Oct 26, 2017 07:22
[2017-10-26 08:00] VITALS: BP 123/60
--- NOTE | 2017-10-26 09:00 | D/C HH Face to Face Order ---
D/C Face to Face Orders Instructions for Patient Patient Instructions/FollowUp: Please follow up with Dr Caldwell in [address] Youssef as scheduled next week for your second round of chemotherapy. If your symptoms return or worse please Physician to follow Patient: Dr. Caldwell Discharge Diet for Home: Cardiac Diet Patient Data-Allergies,Ht & Wt Patient Allergies: Coded Allergies: No Known Drug Allergies (Verified , 09/21/08) Height (Feet): 5 Height (Inches): 2.00 Weight (Pounds): 130 Weight (Ounces): 0.0 Home Health Need/Face to Face Date of Face to Face: Oct 26, 2017 Clinical Findings: Shortness of breath I have seen Pt [id number]: Yes Discharged To: Home Diagnosis/Conditions: CLL, pulmonary HTN Problems/Diagnosis/Condition: Patient is Homebound due to: Reji fall risk due to instabilty, Shortness of breath/distress Homebound Status Due to the above stated illness, injury or surgical procedure (medical condition or diagnosis) and associated clinical findings, the patient is homebound because of his/her inability to leave home except with aid of a supportive device and/or person AND leaving the home requires a considerable and taxing effort or is medically contraindicated. Pt req the following assistanc: Aid of another person, Walker Home Health Nursing Orders Home Health Services Order: Nursing Services, Physical Therapy-Evaluate & Treat Home Health Infusion Therapy Line Start Date: Oct 25, 2017 Line Start Time: 1315 Line Type: Peripheral IV Site Location: Arm-Upper Therapy Orders Therapy Orders: Physical Therapy, PT to assess for OT Therapy Specific Orders: Eval assistive deivces, Teach strategies/cognitive deficits, Teach enviro modifications/safety, Gait training, Increase strength/ endurance Certify Stmt I certify that this patient is under my care and that I, a nurse practitioner or a physician; a engineering assistant working with me, had a face to face encounter that - meets the physician face to face encounter requirements with this patient as dated. FREDDY JARQUIN MD Oct 26, 2017 08:50
[2017-10-26] MEDS: RT-ALBUTEROL SULF 2.5 MG/3 ML PRE-MIX VIAL INH SCH (09:12)
[2017-10-26] MEDS ORDERED: AMOX-358 PO (09:26)
[2017-10-26] MEDS ORDERED: ALLO300T2 PO (09:26)
--- NOTE | 2017-10-26 09:27 | Discharge Summary-Hospitalist ---
Diagnosis/Chief Complaint Date of Admission Oct 21, 2017 at 4:30 pm Date of Discharge Discharge Date: Oct 26, 2017 Admission Diagnosis CAP Discharge Diagnosis Severe Pulmonary Hypertension (1) Pulmonary hypertension Status: Acute Assessment & Plan: Likely due to adenopathy Discussed with Dr Salgado and Dr Youssef while reviewing echo images on 10/23 Concerning for development of right heart failure due to adenopathy Chemotherapy started 10/[address] Youssef, second dose 10/24 Will follow up with Dr Youssef for second round next week (2) CAP (community acquired pneumonia) Assessment & Plan: met sepsis criteria on arrival (now resolved) Leukocytosis trending down today despite decadron with chemo Treated with Zosyn will switch to Augmentin Blood cultures NGTD Pulm consulted, appreciate recs MAT protocol Titrate O2 as able, discussed with RN (3) Thrombocytopenia Assessment & Plan: Chronic Hem consulted, appreciate recs Plts improving (4) CLL (chronic lymphocytic leukemia) Assessment & Plan: Follows with Dr Youssef, appreciate recs (5) Dementia Assessment & Plan: Pleasantly confused reorient as needed (6) Prophylactic measure Assessment & Plan: Saline lock SCDs due to thrombocytopenia Regular Diet Discharge Summary Consultations Dr Salgado- Cardiology Dr. Cat- Pulm Dr. Youssef- Onc Discharge Physical Examination Allergies: Coded Allergies: No Known Drug Allergies (Verified , 09/21/08) Vitals & I&Os Vital Signs Date Time Temp Pulse Resp B/P (MAP) Pulse Ox O2 Delivery O2 Flow Rate FiO2 10/26/17 09:12 94 Nasal Cannula 2.00 10/26/17 08:00 98.6 63 20 123/60 (81) 10/24/17 08:54 36 Hospital Course Pt is an 82yoCF with a PMH of CAD and CLL who presented to the ER with cough and SOB. She was found to have pneumonia if CT chest and was started on Zosyn. She was also noted to have thrombocytopenia. She had 1 unit transfusion of platelets. An echo revealed severe pulmonary hypertension likely due to hilar adenopathy for her underlying malignancy. Dr Youssef was consulted and started her on chemotherapy. Her symptoms were improving. She underwent home oxygen study which revealed a needed for 2lpm at rest. This and home health were ordered for DC. On day of discharge she was feeling well and requesting DC home. Her family was at bedside and also comfortable with plan for DC home with home health. Labs (last 24 hrs) Laboratory Tests 10/26/17 06:45: White Blood Count 15.2H, Red Blood Count 3.95L, Hemoglobin 10.7L, Hematocrit 33L , Mean Corpuscular Volume 84, Mean Corpuscular Hemoglobin 27, Mean Corpuscular Hemoglobin Concent 32, Red Cell Distribution Width 15.1H, Platelet Count 29*L, Mean Platelet Volume 11.3H, Neutrophils (%) (Auto) 32L, Lymphocytes (%) (Auto) 66H, Monocytes (%) (Auto) 2, Eosinophils (%) (Auto) 1, Basophils (%) (Auto) 0, Neutrophils # (Auto) 4.9, Lymphocytes # (Auto) 10.0H, Monocytes # (Auto) 0.3, Eosinophils # (Auto) 0.1, Basophils # (Auto) 0.0, Sodium Level 142, Potassium Level 3.9, Chloride Level 112H, Carbon Dioxide Level 23, Anion Gap 7, Blood Urea Nitrogen 14, Creatinine 1.04, Estimat Glomerular Filtration Rate 51, BUN/ Creatinine Ratio 13, Glucose Level 74, Calcium Level 8.5 Microbiology 10/22/17 Blood Culture - Preliminary, Resulted No growth Pending Labs Laboratory Tests 10/26/17 06:45: White Blood Count 15.2, Red Blood Count 3.95, Hemoglobin 10.7, Hematocrit 33, Mean Corpuscular Volume 84, Mean Corpuscular Hemoglobin 27, Mean Corpuscular Hemoglobin Concent 32, Red Cell Distribution Width 15.1, Platelet Count 29, Mean Platelet Volume 11.3, Neutrophils (%) (Auto) 32, Lymphocytes (%) (Auto) 66 , Monocytes (%) (Auto) 2, Eosinophils (%) (Auto) 1, Basophils (%) (Auto) 0, Neutrophils # (Auto) 4.9, Lymphocytes # (Auto) 10.0, Monocytes # (Auto) 0.3, Eosinophils # (Auto) 0.1, Basophils # (Auto) 0.0, Sodium Level 142, Potassium Level 3.9, Chloride Level 112, Carbon Dioxide Level 23, Anion Gap 7, Blood Urea Nitrogen 14, Creatinine 1.04, Estimat Glomerular Filtration Rate 51, BUN/ Creatinine Ratio 13, Glucose Level 74, Calcium Level 8.5 Discussion & Recommendations Discharge Planning: >30 minutes discharge planning Has history of hypertension but blood pressures were low-normotensive while admitted without any of her home antihypertensives. I could find no indications for YANCY or BB so her antihypertensives were stopped. I advised family to monitor BP and follow up with her PCP regarding her BP. Discharge Home Medications: Active Scripts Active Allopurinol 300 Mg Tablet 300 Mg PO DAILY@1800 Augmentin 875-125 Tablet (Amoxicillin/Potassium Clav) 1 Each Tablet 1 Each PO BID Reported Aspirin EC (Aspirin) 81 Mg Tablet.dr 81 Mg PO 1800 Vitamin D3 (Cholecalciferol (Vitamin D3)) 1,000 Unit Tablet 1,000 Unit PO DAILY Fish Oil 1,200 mg Softgel ([place]-3 Fatty Acids/Fish Oil) 1 Each Capsule 1,200 Mg PO DAILY Pantoprazole Sodium 40 Mg Tablet.dr 40 Mg PO DAILY Simvastatin 40 Mg Tablet 40 Mg PO 1800 Instructions to patient/family Please see electronic discharge instructions given to patient. Clinical Quality Measures DVT/VTE Risk/Contraindication: Risk Factor Score Per Nursin RFS Level Per Nursing on Admit: 3=High Copy Copies To 1: LIVE CAT DO; BAL SALGADO MD; MANISHA YOUSSEF; MATT HEREDIA MD Problem Qualifiers (1) CAP (community acquired pneumonia): Laterality: left Lung location: lower lobe of lung Qualified Codes: J18.1 - Lobar pneumonia, unspecified organism (2) Dementia: Dementia type: unspecified type Dementia behavioral disturbance: without behavioral disturbance Qualified Codes: F03.90 - Unspecified dementia without behavioral disturbance FREDDY JARQUIN MD Oct 26, 2017 09:27
[2017-10-26] MEDS: BISACODYL 5 MG (DULCOLAX) TABLET PO SCH ×2 (09:41→09:43)
--- NOTE | 2017-10-26 10:00 | Physical Therapy Daily Note ---
PT Daily Note-Current Subjective Pt alert and agreeable to treatment. Requests to use the bathroom before walking. Mental Status Patient Orientation: Normal For Age Attachments: Oxygen, IV Transfers Functional [place] Measure 0=Not Assessed/NA 4=Minimal Assistance 1=Total Assistance 5=Supervision or Setup 2=Maximal Assistance 6=Modified [place] 3=Moderate Assistance 7=Complete IndependenceIRFPAI Quality Coding Scale 6 Independent with activity with or without an assistive device 5 Patient requires set up or clean up by helper. Patient completes activity by themselves 4 Supervision or touching assist (CGA). [place] provide cues , steadying assist 3 The helper provides less than half the effort to complete the activity 2 The helper provides more than half the effort to complete the activity 1 Dependent. The helper does all the effort to complete an activity 7 Patient refused to complete or attempt activity 9 The patient did not perform the activity before the current illness or injury 88 Not attempted due to Medical conditions or safety concerns Transfers (B, C, W/C) (FIM): 6 Scootin Rollin Supine to/from Sit: 6 Sit to/from Stand: 6 Bed to/from Chair: 6 Only assist for line management. Weight Bearing Right Lower Extremity: Right Weight Bearing/Tolerated Left Lower Extremity: Left Weight Bearing/Tolerated Gait Training Distance (FIM): 3=150 ft Distance: 1000 Gait Level of Assist: 6 Gait Persons Needed: 1 Gait Assistive Device: FWW normal stride length, sofia, and velocity using FWW Assessment Current Status: Good Progress Pt continues to progress gait stability. She is using a FWW. She did not use a walker prior to admission so will benefit from progression to (I) ambulation. PT [facility] Goals Plant Wire Chief Goals PT [facility] Goals Time Frame: Oct 26, 2017 Transfers (B,C,W/C) (FIM): 7 Gait (FIM): 7 PT Plan Problem List Problem List: Gait Treatment/Plan Treatment Plan: Continue Plan of Care Treatment Plan: Bed Mobility, Education, Functional Activity Connor, Functional Strength, Gait, Safety, Therapeutic Exercise, Transfers Treatment Duration: Oct 26, 2017 Frequency: 6 times per week Estimated Hrs Per Day: .25 hour per day Patient and/or Family Agrees t: Yes Time/GCodes Time In: 0835 Time Out: 0850 Total Billed Treatment Time: 15 Total Billed Treatment visit, gait 15 min ZENAIDA ABBOTT PT Oct 26, 2017 10:00
[2017-10-26 11:25] VITALS: BP 123/60
== END 2017-10-26 11:25 | disposition home health service (06) | DRG 871 ==
LOC: EDUNIT# 14:54 → ER 14:55 → 4TH 16:30
PROVIDERS: ADMIT Internal Medicine; ATTEND Internal Medicine
DX: A41.9 Sepsis, unspecified organism (principal); J18.9 Pneumonia, unspecified organism; C91.10 Chronic lymphocytic leukemia of B-cell type not having achieved remission; I27.20 Pulmonary hypertension, unspecified; D69.59 Other secondary thrombocytopenia; R09.02 Hypoxemia; I10 Essential (primary) hypertension; I25.10 Atherosclerotic heart disease of native coronary artery without angina pectoris; E78.00 Pure hypercholesterolemia, unspecified; E78.5 Hyperlipidemia, unspecified; R91.1 Solitary pulmonary nodule; K21.9 Gastro-esophageal reflux disease without esophagitis; K22.70 Barrett's esophagus without dysplasia; I45.10 Unspecified right bundle-branch block; I65.23 Occlusion and stenosis of bilateral carotid arteries; F03.90 Unspecified dementia, unspecified severity, without behavioral disturbance, psychotic disturbance, mood disturbance, and anxiety; R59.0 Localized enlarged lymph nodes; R68.0 Hypothermia, not associated with low environmental temperature; D72.829 Elevated white blood cell count, unspecified; Z79.82 Long term (current) use of aspirin
CPT/HCPCS: 36415; 71045; 71046; 71275; 80048; 80053; 81000; 82550; 82553; 83605; 83735; 83874; 83880; 84100; 84484; 84550; 85025; 85610; 85730; 86920; 87040; 87070; 87205; 93005; 93041; 93306; 94640; 94664; 94760; 94761; 96361; 96374

== ENCOUNTER 2017-11-09 15:51 | Emergency (ER) | payer MEDICARE, OTHER ==
[~2017-11-09 15:51] MED LIST changes: +ALLO300T2 PO; +AMOX-358 PO; +ASPI-983 PO; +CALC-6 PO; +CHOL10003 PO; +MULT1TAB69 PO; +NFNEB10T PO; +OMEG-109 PO; +OMEG-77 PO; +PANT40TA3 PO; +SPIR25TA3 PO
== END 2017-11-09 16:28 | disposition left against medical advice (07) ==
LOC: EDUNIT# 15:51 → ER 15:52
DX: R51 Headache (principal); M79.605 Pain in left leg

== ENCOUNTER 2017-11-10 21:14 | Inpatient (IN) | payer MEDICARE, OTHER ==
[~2017-11-10] VITALS: Ht 157.5 cm; Wt 63.7 kg
[2017-11-10] VITALS (7 sets, daily range): BP systolic 87–107; BP diastolic 49–59
[2017-11-10] MEDS: NS IV 1000 ML 1,000 ML IV SCH (21:22)
[2017-11-10] MEDS ORDERED: VANCOMYCIN INJECTION 1,000 MG in NS (IVPB) 250 ML IV SCH (21:30)
[2017-11-10] MEDS: PIPERACILLIN SODIUM/TAZOBACTAM 4.5 GM in NS (IVPB) 100 ML IV SCH (21:30)
[2017-11-10] MEDS ORDERED: NS IV 1000 ML 1,769.01 ML IV PRN (21:30)
--- NOTE | 2017-11-10 23:40 | History & Physical-Hospitalist ---
History of Present Illness HPI/Chief Complaint Pt is an 82yoCF known to me from recent admission with a PMH of CLL, pulmonary HTN, and recent admission for pneumonia [facility]. She is unable to provide me any history and asks me to ask her son for details. Her sons states she was seen in the ER yesterday for leg and hip pain. They state she had "tests" done and that nothing was found but they are unsure what the tests were. She was given Toradol and Benadryl and after discussion with Tertiary center about admission for obs given worsening thrombocytopenia. Discharge home was recommended and given that her pain had resolved she was discharged home with her family. She also had a rash at that time on her abd and legs but that has resolved per her and her family after she got one dose of benadryl. Source: patient, family Exam Limitations: clinical condition Date Seen 11/10/17 Time Seen by Provider: 11:05 Attending Physician Freddy Candelario MD PCP Awais Caldwell MD Referring Physician Date of Admission Nov 10, 2017 at 22:38 Home Medications & Allergies Home Medications Reviewed patient Home Medication Reconciliation performed by pharmacy medication reconciliations database technician and/or nursing. Patients Allergies have been reviewed. 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: No Recent Hopitalizations: No Immunizations Up To Date Date of Influenza Vaccine: Jun 25, 2017 Seasonal Allergies Seasonal Allergies: No Past Medical History Cardiac: Coronary Artery Disease, High Cholesterol, Hypertension Neurological: Dementia Reproductive: Yes (CYSTOCELE, UTEROVAGINAL PROLAPSE) Menopausal Gastrointestinal: Gastroesophageal Reflux Cancer: Lymphoma History of Blood Disorders: No Family History Reviewed Nursing Family Hx Heart Disease Review of Systems ROS-Unable to Obtain: due to demenita- see HPI Constitutional: see HPI Physical Exam Physical Exam Vital Signs Vital Signs - First Documented 11/10/17 22:43 Pulse 83 B/P (MAP) 98/59 (72) Capillary Refill : General Appearance: No Apparent Distress, WD/WN HEENT: PERRL/EOMI, No Scleral Icterus (L), No Scleral Icterus (R), Other (dry mucus membranes) Respiratory: Lungs Clear, No Accessory Muscle Use, No Respiratory Distress Cardiovascular: Regular Rate, Rhythm, Normal Peripheral Pulses, Systolic Murmur Gastrointestinal: Normal Bowel Sounds, Non Tender, Soft Extremity: No Calf Tenderness, No Swelling Neurologic/Psychiatric: Alert, Normal Mood/Affect (pleasantly confused), No Aphasia, No Facial Droop, Other (alert to person only) Skin: Warm/Dry, Petechia, Other (flushing of cheeks) Evaluation Lactate Level Laboratory Tests 11/10/17 22:55: Lactic Acid Level 1.41 Time of Focused Exam: 11:10 Capillary Refill: Less Than 3 Seconds Peripheral Pulses: 2+ Dorsalis Pedis (R), 2+ Left Dors-Pedis (L), 2+ Radial Pulses (R), 2+ Radial Pulses (L) Skin: ecchymosis, No jaundice, No mottled, No rash on exposed areas, other ( petechia noted on legs and upper arms) Lactic Acid Level Results Results/Procedures Labs Laboratory Tests 11/12/17 03:25 11/12/17 09:06 11/12/17 16:45 11/13/17 05:47 Patient resulted labs reviewed. Imaging: Reviewed Imaging Films Assessment/Plan Admission Diagnosis Septic Shock Admission Status: Inpatient Order (span 2 midnights) Reason for Inpatient Admission: Necessitates ICU level care, broad spectrum antibiotics, potentially pressors Critical Care Critically Ill Patient Diagnosis/Problems Diagnosis/Problems (1) Septic shock Status: Acute Assessment & Plan: Febrile of 101.8 with tachycardia with pulse of 104 on arrival to [facility] Lactic acid was elevated there along with T Bili qulaifying at severe sepsis BP on arrival was 102/46 BP dropped to a systolic in the 80s there per report 30cc/kg bolus started Blood cultures obtained at OSH Started on Zosyn/Vanc After 2L her blood pressure again dropped to systolic in the 80s during transport per EMS report Will continue IV fluid resuscitation and get second peripheral line Has a 20G IV in right hand but needs IV abx, platelets, fluids, and pressors I called Dr Munoz at 1114 in regards to need for central line- he requested attempting to place secondary peripheral above the AC and transfusing platelets to make central line access safer supervisor tile and mottle and RN at bedside attempting peripheral line currently (2) KAYE (acute kidney injury) Status: Resolved Assessment & Plan: Green Inspector 1.38 from 0.8 the day before from Issue's labs Will provide IV fluids Monitor I/Os (3) Pneumonia Assessment & Plan: Chest XR at OSH read at pneumonia My review of previous image here CXR from today actually looks improved from 2 weeks ago Will cont broad spectrum abx given severity of illness Zosyn started at OSH and will start Vanc here Qualifiers: Pneumonia type: due to unspecified organism Laterality: left Lung location: lower lobe of lung Qualified Codes: J18.1 - Lobar pneumonia, unspecified organism (4) Thrombocytopenia Status: Acute Assessment & Plan: Per recommendation from Dr Youssef will transfuse 1 unit platelets (5) Pulmonary hypertension Status: Acute Assessment & Plan: New diagnosis during last admission Likely due to hilar adenopathy from CLL On palliative chemo (6) CLL (chronic lymphocytic leukemia) Assessment & Plan: Follows with Dr Youssef Was contacted by SHERIFFS at [facility]- will consult (7) Dementia Status: Chronic Assessment & Plan: Pleasantly confused Family reports confusion worse over past 2 days Appears baseline to me from last admission Qualifiers: Dementia type: unspecified type Dementia behavioral disturbance: without behavioral disturbance Qualified Codes: F03.90 - Unspecified dementia without behavioral disturbance (8) Counseling regarding end of life decision making Assessment & Plan: Discussed severity of illness and complex decisions regarding treatment of infection and thrombocytopenia Family understands guarded status They state she would want to be a full code- order placed (9) Prophylactic measure Assessment & Plan: SCDs only for thrombocytopenia NS at 250cc/hr FREDDY CANDELARIO MD Nov 10, 2017 23:40
[2017-11-10 23:47] LABS: BASOPHILS % (AUTO) 0 % (0-10); EOSINOPHILS % (AUTO) 0 % (0-10); HEMATOCRIT 31 % (35-52); HEMOGLOBIN 10.1 G/DL (11.5-16.0); LYMPHOCYTES # (AUTO) 1.7 X 10^3 (1.0-4.0); LYMPHOCYTES % (AUTO) 21 % (12-44); MEAN CORPUSCULAR HEMOGLOBIN 27 PG (25-34); MEAN CORPUSCULAR HGB CONC 33 G/DL (32-36); MEAN CORPUSCULAR VOLUME 83 FL (80-99); MONOCYTES # (AUTO) 0.2 X 10^3 (0.0-1.0); MONOCYTES % (AUTO) 3 % (0-12); NEUTROPHILS # (AUTO) 6.1 X 10^3 (1.8-7.8); NEUTROPHILS % (AUTO) 76 % (42-75); RED BLOOD COUNT 3.68 10^6/uL (4.35-5.85); RED CELL DISTRIBUTION WIDTH 15.8 % (10.0-14.5); WHITE BLOOD COUNT 8.1 10^3/uL (4.3-11.0)
[2017-11-10 23:49] LABS: PLATELET COUNT 9 10^3/uL (130-400)
[2017-11-11] VITALS (49 sets, daily range): BP systolic 90–136; BP diastolic 48–94
[2017-11-11 00:02] LABS: BILIRUBIN,TOTAL 2.5 MG/DL (0.1-1.0); CALCIUM 7.2 MG/DL (8.5-10.1); CREATININE SERUM 1.11 MG/DL (0.60-1.30); MAGNESIUM 1.2 MG/DL (1.8-2.4); POTASSIUM 3.3 MMOL/L (3.6-5.0)
[2017-11-11 00:05] LABS: INR 1.4 (0.8-1.4); PROTHROMBIN TIME PATIENT 16.8 SEC (12.2-14.7)
[2017-11-11 00:08] LABS: BILIRUBIN,URINE NEGATIVE (NEGATIVE); CLARITY,URINE CLEAR; COLOR,URINE YELLOW; GLUCOSE, URINE (UA) NEGATIVE (NEGATIVE); KETONES,URINE NEGATIVE (NEGATIVE); LEUKOCYTE ESTERASE ,URINE NEGATIVE (NEGATIVE); NITRITE,URINE NEGATIVE (NEGATIVE); PH,URINE 6 (5-9); PROTEIN,URINE NEGATIVE (NEGATIVE); UROBILINOGEN,URINE NORMAL (NORMAL)
[2017-11-11] MEDS ORDERED: KCL 20 MEQ TAB (K-DUR) PO ONE ×2 (00:15→05:30)
[2017-11-11 00:23] LABS: BACTERIA,URINE NEGATIVE /HPF; RBC,URINE 0-2 /HPF; SQUAMOUS EPITHELIAL CELL,UR 0-2 /HPF
[2017-11-11] MEDS: NOREPINEPHRINE 4 MG in NS (IVPB) 250 ML IV SCH ×2 (00:46→11:09)
[2017-11-11] MEDS: NS IV 500 ML 500 ML IV SCH (00:49)
[2017-11-11] MEDS: MAGNESIUM 1 GM/100 ML IVPB 100 ML IV SCH ×3 (02:19→05:18)
[2017-11-11] MEDS: NS IV 1000 ML 1,000 ML IV SCH ×5 (04:02→18:36)
[2017-11-11 04:39] LABS: BASOPHILS % (AUTO) 0 % (0-10); EOSINOPHILS # (AUTO) 0.1 10^3/uL (0.0-0.3); EOSINOPHILS % (AUTO) 2 % (0-10); HEMATOCRIT 28 % (35-52); HEMOGLOBIN 9.5 G/DL (11.5-16.0); LYMPHOCYTES # (AUTO) 1.1 X 10^3 (1.0-4.0); LYMPHOCYTES % (AUTO) 21 % (12-44); MEAN CORPUSCULAR HEMOGLOBIN 28 PG (25-34); MEAN CORPUSCULAR HGB CONC 34 G/DL (32-36); MEAN CORPUSCULAR VOLUME 82 FL (80-99); MONOCYTES # (AUTO) 0.1 X 10^3 (0.0-1.0); MONOCYTES % (AUTO) 2 % (0-12); NEUTROPHILS % (AUTO) 75 % (42-75); RED BLOOD COUNT 3.45 10^6/uL (4.35-5.85); RED CELL DISTRIBUTION WIDTH 15.8 % (10.0-14.5); WHITE BLOOD COUNT 5.3 10^3/uL (4.3-11.0)
[2017-11-11 04:44] LABS: PLATELET COUNT 12 10^3/uL (130-400)
[2017-11-11 04:58] LABS: CALCIUM 7.2 MG/DL (8.5-10.1); CREATININE SERUM 0.9 MG/DL (0.60-1.30); MAGNESIUM 2.2 MG/DL (1.8-2.4); POTASSIUM 3.4 MMOL/L (3.6-5.0)
[2017-11-11] MEDS: POTASSIUM CL 10MEQ/50ML IVPB 50 ML IV SCH (05:18)
[2017-11-11] MEDS: KCL 20 MEQ TAB (K-DUR) PO SCH (05:18)
[2017-11-11] MEDS: PIPERACILLIN SODIUM/TAZOBACTAM 4.5 GM in NS (IVPB) 100 ML IV SCH ×3 (05:34→20:52)
--- NOTE | 2017-11-11 08:54 | Progress Note-Hospitalist ---
Subjective HPI/CC On Admission Date Seen by Provider: Nov 11, 2017 Time Seen by Provider: 08:49 Pt is an 82yoCF known to me from recent admission with a PMH of CLL, pulmonary HTN, and recent admission for pneumonia [facility]. She is unable to provide me any history and asks me to ask her son for details. Her sons states she was seen in the ER yesterday for leg and hip pain. They state she had "tests" done and that nothing was found but they are unsure what the tests were. She was given Toradol and Benadryl and after discussion with Tertiary center about admission for obs given worsening thrombocytopenia. Discharge home was recommended and given that her pain had resolved she was discharged home with her family. She also had a rash at that time on her abd and legs but that has resolved per her and her family after she got one dose of benadryl. Subjective/Events-last exam Pt reports feeling better today. Son at bedside says she has been coughing more. RN reports overnight BP improved and was able to avoid pressors. Focused Exam Evaluation Sepsis Stage: Sepsis Lactate Level Laboratory Tests 11/10/17 22:55: Lactic Acid Level 1.41 Time of Focused Exam: 11:10 Objective Exam Vital Signs Vital Signs Date Time Temp Pulse Resp B/P (MAP) Pulse Ox O2 Delivery O2 Flow Rate FiO2 11/10/17 22:40 98.0 11/10/17 22:40 98 Nasal Cannula 2.00 11/10/17 22:43 83 98/59 (72) 11/10/17 22:47 23 Capillary Refill : Less Than 3 Seconds General Appearance: No Apparent Distress, WD/WN Respiratory: Lungs Clear, No Crackles, Decreased Breath Sounds, No Wheezing Cardiovascular: Regular Rate, Rhythm, Normal Peripheral Pulses, Systolic Murmur Gastrointestinal: Normal Bowel Sounds, Non Tender, Soft Extremity: Normal Capillary Refill, No Calf Tenderness, No Pedal Edema Neurologic/Psychiatric: Alert, Normal Mood/Affect, Other (oriented to person only- pleasantly confused) Skin: No Mottled, Petechia (on legs) Results/Procedures Lab Laboratory Tests 11/10/17 22:50 11/11/17 04:20 Patient resulted labs reviewed. Imaging: Reviewed Imaging Films Assessment/Plan Assessment and Plan Assess & Plan/Chief Complaint Sepsis Critical Care Critical Care: Critically Ill Patient Diagnosis/Problems Diagnosis/Problems (1) Septic shock Status: Acute Assessment & Plan: Febrile of 101.8 with tachycardia with pulse of 104 on arrival to [facility] [place] Lactic acid was elevated there along with T Bili qulaifying at severe sepsis BP on arrival was 102/46 BP dropped to a systolic in the 80s there per report 30cc/kg bolus started Blood cultures obtained at OSH Started on Zosyn/Vanc After 2L her blood pressure again dropped to systolic in the 80s during transport per EMS report Will continue IV fluid resuscitation and get second peripheral line Has a 20G IV in right hand but needs IV abx, platelets, fluids, and pressors I called Dr Munoz at 1114 in regards to need for central line- he requested attempting to place secondary peripheral above the AC and transfusing platelets to make central line access safer airplane flight attendant supervisor and RN at bedside attempting peripheral line currently (2) KAYE (acute kidney injury) Status: Resolved Assessment & Plan: Creatinine returned to baseline today Continue to monitor I/O (3) Pneumonia Assessment & Plan: Chest XR at OSH read at pneumonia Will continue Vanc/Zosyn Qualifiers: Pneumonia type: due to unspecified organism Laterality: left Lung location: lower lobe of lung Qualified Codes: J18.1 - Lobar pneumonia, unspecified organism (4) Thrombocytopenia Status: Acute Assessment & Plan: s/p 1 unit plts Up to 12 Hematology consulted, appreciate recs (5) Pulmonary hypertension Status: Acute Assessment & Plan: New diagnosis during last admission Likely due to hilar adenopathy from CLL On palliative chemo- she is unsure of when last chemo cycle was (6) CLL (chronic lymphocytic leukemia) Assessment & Plan: Follows with Dr Youssef Was contacted by NECK SKEWER at [facility] [place]- will consult (7) Dementia Status: Chronic Assessment & Plan: Pleasantly confused Family reports confusion worse over past 2 days Appears baseline to me from last admission Qualifiers: Dementia type: unspecified type Dementia behavioral disturbance: without behavioral disturbance Qualified Codes: F03.90 - Unspecified dementia without behavioral disturbance (8) Counseling regarding end of life decision making Assessment & Plan: Discussed severity of illness and complex decisions regarding treatment of infection and thrombocytopenia Family understands guarded status They state she would want to be a full code- order placed If continues to worsen would benefit from palliative education (9) Prophylactic measure Assessment & Plan: SCDs only for thrombocytopenia NS at 100cc/hr CLD Clinical Quality Measures DVT/VTE Risk/Contraindication: Risk Factor Score Per Nursin RFS Level Per Nursing on Admit: 4+=Very High Contraindications-Pharm: Other *list below* Contraindications-Mechi: Other *list below* Other: FREDDY Mitchell MD Nov 11, 2017 08:54
--- NOTE | 2017-11-11 09:37 | Diagnostic Imaging Report ---
INDICATION: Sepsis low platelet count, hypotension. EXAMINATION: Chest 11/11/2017 COMPARISON: 11/03/17 FINDINGS: The heart is slightly prominent. Pulmonary vasculature is normal in appearance. There is atelectasis versus minimal infiltrate left lung base. Small effusion is possible remaining lungs similar to previous. IMPRESSION: 1. Left base atelectasis or infiltrate with tiny effusion suspected. 2. Cardiomegaly. Dictated by: Dictated on workstation # [id number]
[2017-11-11] MEDS: VANCOMYCIN INJECTION 1,000 MG in NS (IVPB) 250 ML IV SCH (10:03)
--- NOTE | 2017-11-11 10:35 | Consultation-Cardiology ---
HPI-Cardiology Cardiology Consultation: Date of Consultation 11/11/17 Date of Admission Attending Physician Freddy Candelario MD Admitting Physician Awais Caldwell MD Consulting Physician Raul LAGUNAS MD HPI: Time Seen by Provider: 09:30 Chief Complaint: Pulmonary hypertension. This is a 82-year-old lady who has past medical history of chronic lymphocytic leukemia, pulmonary hypertension. She was recently admitted to our hospital for pneumonia. She is admitted again for septic shock. History is limited. However the patient denies any significant chest pain or shortness of breath. Review of Systems-Cardiology Review of Systems Constitutional: As described under HPI Eyes: No As described under HPI, No no symptoms reported, No blindness, No blurred vision, No contact lenses, No drainage, No decreased acuity, No foreign body sensation, No glasses, No inflammation, No pain, No photophobia, No previous injury, No shadows, No tunnel vision, No other, No vision change Ears/Nose/Throat: No As described under HPI, No no symptoms reported, No chronic hearing loss, No epistaxis, No ear discharge, No ear pain, No loose teeth, No mouth pain, No mouth swelling, No nasal drainage, No nose pain, No recent hearing loss, No throat pain, No throat swelling, No ulcerations, No other Respiratory: No no symptoms reported, No As described under HPI, cough, No orthopnea, No shortness of breath, No SOB with excertion, No SOB at rest, No stridor, No wheezing, No other Cardiovascular: No no symptoms reported, No As described under HPI, No chest pain, No edema, No irregular heart rate, No lightheadedness, No palpitations, No syncope, No other Gastrointestinal: No no symptoms reported, No As described under HPI, No abdomen distended, No abdominal pain, No blood streaked bowels, No constipation , No diarrhea, No difficulty swallowing, No nausea, No poor appetite, No poor fluid intake, No rectal bleeding, No vomiting, No other, No nausea/vomiting/ diarrhea, No stool coloration changes Genitourinary: As described under HPI Musculoskeletal: No no symptoms reported, No As describe under HPI, No back pain, No gout, No joint pain, No joint swelling, No muscle pain, No muscle stiffness, No neck pain, No other Skin: No no symptoms reported, No As described under HPI, No change in color, No change in hair/nails, No dryness, No lesions, No lumps, No rash, No other, No skin related problems, No ulcerations, No rash on exposed areas, No ulcerations on exposed areas Psychiatric/Neurological: No no symptoms reported, No As described under HPI, No anxiety, No depression, No emotional problems, No headache, No numbness, No pre-existing deficit, No seizure, No tingling, No tremors, No weakness, No other , No focal weakness, No syncope DIC-[id number] Hx Patient Social History Employed/Student: retired Alcohol Use: Denies Use Recreational Drug Use: No Smoking Status: Never a Smoker 2nd Hand Smoke Exposure: No Recent Foreign Travel: No Recent Infectious Disease Expo: No Physical Abuse Screen: No Sexual Abuse: No Immunizations Up To Date Date of Influenza Vaccine: Jun 25, 2017 Past Medical History PMH As described under Assessment. Family Medical History Family History: Dementia 19 MOTHER Myocardial infarction 19 FATHER Pacemaker 19 MOTHER Allergies and Home Medications Allergies Coded Allergies: No Known Drug Allergies (Verified , 09/21/08) Home Medications Allopurinol 300 Mg Tablet, 300 MG PO DAILY@1800 Prescribed by: FREDDY CANDELARIO on 10/26/17 0926 Aspirin 81 Mg Tablet.dr, 81 MG PO 1800, (Reported) Cholecalciferol (Vitamin D3) 1,000 Unit Tablet, 1,000 UNIT PO DAILY, (Reported) Enalapril Maleate 5 Mg Tablet, 5 MG PO DAILY, (Reported) Nebivolol HCl 10 Mg Tab, 10 MG PO DAILY, (Reported) [place]-3 Fatty Acids/Fish Oil 1 Each Capsule, 1,200 MG PO DAILY, (Reported) Pantoprazole Sodium 40 Mg Tablet.dr, 40 MG PO DAILY, (Reported) Simvastatin 40 Mg Tablet, 40 MG PO 1800, (Reported) Spironolactone 25 Mg Tablet, 25 MG PO DAILY, (Reported) Patient Home Medication List Home Medication List Reviewed: Yes Physical Exam-Cardiology Physical Exam Vital Signs/I&O Vital Sign - Last 12Hours 11/11/17 11/11/17 11/11/17 11/11/17 11:00 12:00 12:40 12:49 Temp 99.0 Pulse 79 86 78 Resp 23 14 14 B/P (MAP) 116/71 (86) 90/68 (75) 108/75 Pulse Ox 97 96 96 97 O2 Delivery Nasal Cannula Nasal Cannula Nasal Cannula Room Air O2 Flow Rate 2.00 2.00 1.00 11/11/17 11/11/17 11/11/17 11/11/17 12:50 12:58 13:00 13:00 Temp 99.0 98.4 Pulse 81 80 80 Resp 20 19 B/P (MAP) 105/62 105/62 (76) Pulse Ox 90 92 O2 Delivery Room Air Room Air Room Air 11/11/17 11/11/17 11/11/17 11/11/17 14:00 14:47 15:00 15:06 Temp 98.0 Pulse 78 75 80 Resp 19 25 19 B/P (MAP) 108/54 (72) 116/62 117/68 (84) Pulse Ox 91 97 94 95 O2 Delivery Room Air Room Air Room Air Room Air 11/11/17 11/11/17 11/11/17 11/11/17 15:07 16:00 18:00 18:00 Temp 98.0 Pulse 70 80 Resp 22 15 B/P (MAP) 110/68 (82) 117/94 (102) Pulse Ox 92 97 O2 Delivery Room Air Room Air Room Air Room Air 11/11/17 11/11/17 11/11/17 11/11/17 19:00 19:00 20:00 21:00 Pulse 82 82 81 79 Resp 17 20 22 B/P (MAP) 126/64 (84) 126/83 (97) Pulse Ox 95 94 96 O2 Delivery Room Air Room Air Room Air Intake and Output 11/11/17 00:00 Intake Total 5600 ml Balance 5600 ml Capillary Refill : Less Than 3 Seconds Constitutional: No appears stated age, AAO x 3, No apparent distress, No PERRL , No well-developed, No well-nourished, No other HEENT: PERRL, No normal ENT inspection, No TMs normal, No pharynx normal, No scleral icterus (R), No scleral icterus (L), No pale conjunctivae (R), No pale conjunctivae (L), No photophobia, No TM abnormal (R), No TM abnormal (L), No pharyngeal erythema, No tonsillar exudate, No other, No discharge, No EOMI, hearing is well preserved, No hard of hearing, oral hygience is good, No ulceration, No xanthelasmas are seen Neck: No non-tender, No full range of motion, No supple, No normal inspection, No carotid bruit, No limited range of motion, No lymphadenopathy (R), No lymphadenopathy (L), No tender lateral, No tender midline, No thyromegaly, No other, carotid pulses are 2 + bilaterally, No with good upstrokes Respiratory: No accessory muscle use, No respiratory distress, No chest tender , No chest expansion is symmetric, chest is bilaterally symmetric, No lungs clear to percussion, lungs clear to auscultation, No crackles, No rhonchi, No rales, No stridor, No wheezing, No pleural rub, No other Cardiovascular: regular rate-rhythm, cardiac thrills are palpable Gastrointestinal: No tender, No soft, No round, No distended, No pulsatile mass , No organomegaly, No guarding, No rebound, No tenderness, No hernia, No mass, No audible bowel sounds, No abnormal bowel sounds, No abdominal bruits, No spleenomegaly, No other Rectal: deferred Extremities: No normal range of motion, No non-tender, No normal inspection, No pedal edema, No calf tenderness, No normal capillary refill, No pelvis stable , No calf tenderness, No inflammation, No pedal edema, No slow capillary refill , No swelling, No other, No abrasion, No clubbing, No cyanosis, No ecchymosis, No laceration, No no lower extremity edema bilateral, No significant edema, No tenderness, No wound Neurologic/Psychiatric: No agriculture inspector II-XII nml as tested, No no motor/sensory deficits, alert, No normal mood/affect, No oriented x 3, No abnormal cerebellar tests, No abnormal agriculture inspector II-XII, No abnormal gait, No aphasia, No EOM palsy, No facial droop, No motor weakness, No sensory deficit, No depressed affect, No disoriented x 3, No other, No grossly intact, No power is 5/5 both on sides Skin: No normal color, No warm/dry, No cyanosis, No cool, No diaphoresis, No damp, ecchymosis, No jaundice, No mottled, No pallor, No rash, No tattoos/ piercings, No ulcerations, No rash on exposed areas, No ulcerations on exposed areas, other (petechia noted on legs and upper arms) Data Review Labs Laboratory Tests 11/10/17 22:50: White Blood Count 8.1, Red Blood Count 3.68L, Hemoglobin 10.1L, Hematocrit 31L, Mean Corpuscular Volume 83, Mean Corpuscular Hemoglobin 27, Mean Corpuscular Hemoglobin Concent 33, Red Cell Distribution Width 15.8H, Platelet Count 9*L, Mean Platelet Volume , Neutrophils (%) (Auto) 76H, Lymphocytes (%) (Auto) 21, Monocytes (%) (Auto) 3, Eosinophils (%) (Auto) 0, Basophils (%) (Auto) 0, Neutrophils # (Auto) 6.1, Lymphocytes # (Auto) 1.7, Monocytes # (Auto) 0.2, Eosinophils # (Auto) 0.0, Basophils # (Auto) 0.0, Sodium Level 135, Potassium Level 3.3L, Chloride Level 109H, Carbon Dioxide Level 16L, Anion Gap 10, Blood Urea Nitrogen 17, Creatinine 1.11, Estimat Glomerular Filtration Rate 47, BUN/ Creatinine Ratio 15, Glucose Level 109H, Calcium Level 7.2L, Magnesium Level 1.2L, Total Bilirubin 2.5H, Aspartate Amino Transf (AST/SGOT) 24, Alanine Aminotransferase (ALT/SGPT) 13, Alkaline Phosphatase 55, Total Protein 5.0L, Albumin 3.0L 11/10/17 22:55: Lactic Acid Level 1.41 11/10/17 23:50: Prothrombin Time 16.8H, INR Comment 1.4 11/11/17 00:01: Urine Color YELLOW, Urine Clarity CLEAR, Urine pH 6, Urine Specific [place] 1.005L, Urine Protein NEGATIVE, Urine Glucose (UA) NEGATIVE, Urine Ketones NEGATIVE, Urine Nitrite NEGATIVE, Urine Bilirubin NEGATIVE, Urine Urobilinogen NORMAL, Urine Leukocyte Esterase NEGATIVE, Urine RBC (Auto) 3+H, Urine RBC 0-2, Urine WBC NONE, Urine Squamous Epithelial Cells 0-2, Urine Crystals NONE, Urine Bacteria NEGATIVE, Urine Casts NONE, Urine Mucus NEGATIVE, Urine Culture Indicated NO 11/11/17 04:20: White Blood Count 5.3, Red Blood Count 3.45L, Hemoglobin 9.5L, Hematocrit 28L, Mean Corpuscular Volume 82, Mean Corpuscular Hemoglobin 28, Mean Corpuscular Hemoglobin Concent 34, Red Cell Distribution Width 15.8H, Platelet Count 12*L, Mean Platelet Volume , Neutrophils (%) (Auto) 75, Lymphocytes (%) (Auto) 21, Monocytes (%) (Auto) 2, Eosinophils (%) (Auto) 2, Basophils (%) (Auto) 0, Neutrophils # (Auto) 4.0, Lymphocytes # (Auto) 1.1, Monocytes # (Auto) 0.1, Eosinophils # (Auto) 0.1, Basophils # (Auto) 0.0, Sodium Level 139, Potassium Level 3.4L, Chloride Level 113H, Carbon Dioxide Level 16L, Anion Gap 10, Blood Urea Nitrogen 15, Creatinine 0.90, Estimat Glomerular Filtration Rate 60, BUN/ Creatinine Ratio 17, Glucose Level 112H, Calcium Level 7.2L, Phosphorus Level 3.0, Magnesium Level 2.2 ECG Impression ECG Initial ECG Rhythm: Normal Sinus A/P-Cardiology Assessment/Admission Diagnosis Septic shock, Pneumonia CLL, Thrombocytopenia, KAYE Pulmonary hypertension Plan Septic shock, on IV antibiotics, IV fluids based on the sepsis protocol. Pneumonia on CXR. Appropriately covered with broad spectrum antibiotics. CLL: Recent history of chemotherapy. Dr. Carlos has been consulted. Thrombocytopenia: Deferred to Dr Carlos. Acute sepsis could be contributing to decreased platelet count. KAYE: improved creatinine. Pulmonary hypertension: Echocardiogram in 2016 showed a PA pressure of around 50 mmHg. Recent echocardiogram showed worsening of PA pressure to around 80 mmHg. Unclear etiology. The patient denies any significant respiratory or cardiac condition. It is possible that there is significant hilar lymphadenopathy which could be contribute in to increased PA pressure. Follow clinically. Thank you for your consultation. Please call me if you have any questions. Kee Lagunas MD, FACP, FACC, FSCAI, FHRS, CCDS Interventional Cardiology Cardiac Electrophysiology Vascular Medicine and Endovascular Interventions Clinical Quality Measures DVT/VTE Risk/Contraindication: Risk Factor Score Per Nursin RFS Level Per Nursing on Admit: 4+=Very High Contraindications-Pharm: Other *list below* Contraindications-Mechi: Other *list below* Other: platetlets Raul SELF MD Nov 11, 2017 10:35 am
[2017-11-11] MEDS: ACETAMINOPHEN 500 MG TAB (TYLENOL) PO PRN ×2 (10:59→18:37)
[2017-11-11] MEDS ORDERED: ENAL5TAB PO (11:42)
[2017-11-11] MEDS ORDERED: NFNEB10T PO (11:42)
[2017-11-11] MEDS ORDERED: SPIR25TA3 PO (11:42)
--- NOTE | 2017-11-11 13:35 | CONSULTATION REPORT ---
DATE OF SERVICE: 11/11/2017 The patient is admitted to ICU bed 12. REFERRING PHYSICIAN: Dania Candelario MD IMPRESSION: 1. An 82-year-old female transferred from [facility] emergency room with hypotension, fever and elevated lactic acid consistent with sepsis. 2. History of CLL/SLL, diagnosed in 2003 and required treatment completed in early 2004, and has been on surveillance until recently. 3. Recent worsening thrombocytopenia and lymphadenopathy in the chest, causing obstruction of pulmonary artery and right heart strain, status post chemotherapy with Treanda and Rituxan regimen on 10/25/2017. 4. Worsening thrombocytopenia due to chemotherapy. RECOMMENDATIONS: 1. Agree with broad spectrum antibiotic use until culture results are available and fluid resuscitation as you are doing. 2. Agree with platelet transfusion. I will try to maintain the platelet count in the 20+ range to avoid bleeding. 3. Once blood pressure and pulse rate stabilizes, wean IV fluids as tolerated. 4. I will follow the patient with you. HISTORY OF PRESENT ILLNESS: The patient is an 82-year-old female known to me since mid 2015 with history of CLL/SLL. This was diagnosed in late 2003 and required treatment in 2004. Following this she has been on surveillance with gradually worsening thrombocytopenia. She was admitted to the hospital in early 10/2017 with pneumonia. Workup during the admission had shown increasing lymphadenopathy causing pulmonary artery obstruction and right heart strain along with worsening thrombocytopenia due to progressive CLL/SLL. She was started on urgent chemotherapy with Treanda and Rituxan regimen and completed the first course two weeks ago. The patient presented to the [facility] emergency room with one day history of fever to 102 degrees Fahrenheit. She was found to be hypotensive, tachycardic with an elevated lactic acid level of more than 20. She was transferred to [facility] for higher level of care and admitted to ICU for appropriate management of the sepsis. She is doing better this morning. An oncology consultation was obtained for concurrent management. PAST MEDICAL HISTORY: Significant for CLL/SLL diagnosed in late 2003 and treated with single agent Rituxan until mid 2004. Other medical problems include hypertension for more than 30 years. Hypercholesterolemia for a few decades and on treatment. Gastroesophageal reflux disease with early changes of Cespedes's esophagus. PAST SURGICAL HISTORY: Include tonsillectomy and adenoidectomy in childhood. Bilateral cataract surgeries 15 years ago. Right supraclavicular lymph node biopsy in 2003. MAREK/BSO in 2008. SOCIAL HISTORY: The patient is and lives with her son in [place], [place]. She has three children, two sons who live close by and a daughter who lives in [place], [place]. She previously worked in a [employer] for several years. 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 No history of exposure to chemicals or pesticides that the patient knows of. She denied any tobacco, alcohol or other recreational drug use ever. FAMILY HISTORY: Significant for both her parents with history of coronary artery disease. Maternal grandmother had uterine cancer in her 70s. No other malignancies in the family that the patient knows of. PHYSICAL EXAMINATION: GENERAL: Today showed an elderly female, weak appearing, awake and answering questions appropriately, although having difficulty remembering some details. VITAL SIGNS: Temperature was 99.9, pulse rate 75, respirations 16, blood pressure 123/81 and oxygen saturation 97% on 2 liters of oxygen by nasal cannula. HEENT: Normocephalic, extraocular muscles intact, conjunctivae are slightly pale, oral mucosa moist without lesions. NECK: Supple, with no JVD. No cervical, supraclavicular or axillary lymphadenopathy palpable. Chest was symmetrical. LUNGS: Fairly clear to auscultation without wheezes or rales. HEART: Regular in rate and rhythm. No murmurs or gallops heard. ABDOMEN: Soft, nontender with no hepatosplenomegaly or other masses palpable. EXTREMITIES: Showed a few petechiae on her lower extremities. NEUROLOGIC: Grossly intact without focal motor deficits. LABORATORY DATA: CBC done today showed, white blood cell count of 5.3, hemoglobin 9.5, MCV 82, platelet count 12,000 with neutrophil count of 4.0 and lymphocyte count 1.1. Platelet count done last night was 9000. Chemistry panel done last night showed potassium level of 3.3 and CO2 level of 16, BUN was 17 and creatinine 1.11 with GFR 47 mL per minute. Serum magnesium was below normal at 1.2 and total bilirubin was elevated at 2.5, albumin level 3.0 with rest of liver function studies within normal limits. Lactic acid level was 1.41 at the time of admission here. Chest x-ray done today morning showed left base atelectasis or infiltrate with tiny effusion. Mild cardiomegaly seen. Thank you for allowing me to participate in this patient's care. I will follow the patient with you and make appropriate recommendations. Job ID: [id number] DocumentID: [id number] Dictated Date: 11/11/2017 11:06:52 Addiction Treatment Counselor Date: 11/11/2017 13:35:13 Dictated By: MANISHA MAYFIELD MD
[2017-11-12] VITALS (25 sets, daily range): BP systolic 115–153; BP diastolic 42–110
[2017-11-12] MEDS: NOREPINEPHRINE 4 MG in NS (IVPB) 250 ML IV SCH ×2 (00:29→14:07)
[2017-11-12] MEDS: ACETAMINOPHEN 500 MG TAB (TYLENOL) PO PRN ×3 (01:15→17:41)
[2017-11-12 03:56] LABS: BASOPHILS % (AUTO) 0 % (0-10); EOSINOPHILS # (AUTO) 0.3 10^3/uL (0.0-0.3); EOSINOPHILS % (AUTO) 5 % (0-10); HEMATOCRIT 28 % (35-52); HEMOGLOBIN 9.1 G/DL (11.5-16.0); LYMPHOCYTES # (AUTO) 1.4 X 10^3 (1.0-4.0); LYMPHOCYTES % (AUTO) 27 % (12-44); MEAN CORPUSCULAR HEMOGLOBIN 27 PG (25-34); MEAN CORPUSCULAR HGB CONC 33 G/DL (32-36); MEAN CORPUSCULAR VOLUME 83 FL (80-99); MONOCYTES # (AUTO) 0.2 X 10^3 (0.0-1.0); MONOCYTES % (AUTO) 3 % (0-12); NEUTROPHILS # (AUTO) 3.5 X 10^3 (1.8-7.8); NEUTROPHILS % (AUTO) 65 % (42-75); RED BLOOD COUNT 3.32 10^6/uL (4.35-5.85); RED CELL DISTRIBUTION WIDTH 15.8 % (10.0-14.5); WHITE BLOOD COUNT 5.4 10^3/uL (4.3-11.0)
[2017-11-12 03:57] LABS: PLATELET COUNT 4 10^3/uL (130-400)
[2017-11-12 04:13] LABS: ALANINE AMINOTRANSFERASE 18 U/L (0-55); ALKALINE PHOSPHATASE 68 U/L (40-136); BILIRUBIN,DIRECT 0.7 MG/DL (0.0-0.3); BILIRUBIN,TOTAL 1.7 MG/DL (0.1-1.0); BUN/CREATININE RATIO 14; CALCIUM 7.7 MG/DL (8.5-10.1); CARBON DIOXIDE 14 MMOL/L (21-32); CHLORIDE 115 MMOL/L (98-107); CREATININE SERUM 0.77 MG/DL (0.60-1.30); GFR ESTIMATED > 60; GLUCOSE 70 MG/DL (70-105); PHOSPHORUS 1.9 MG/DL (2.3-4.7); POTASSIUM 4.1 MMOL/L (3.6-5.0); SODIUM 138 MMOL/L (135-145); TOTAL PROTEIN 5.2 GM/DL (6.4-8.2)
[2017-11-12] MEDS: NS IV 1000 ML 1,000 ML IV SCH (04:33)
[2017-11-12] MEDS: POTASSIUM CL 10MEQ/50ML IVPB 50 ML IV SCH (05:11)
[2017-11-12] MEDS: MAGNESIUM 1 GM/100 ML IVPB 100 ML IV SCH (05:11)
[2017-11-12] MEDS: KCL 20 MEQ TAB (K-DUR) PO SCH (05:12)
--- NOTE | 2017-11-12 07:09 | Pulmonary Consultation ---
History of Present Illness History of Present Illness Date of Consultation 11/12/17 07:03 Time Seen by Provider: 07:03 Date of Admission History of Present Illness 82yo with hx of CLL dx 2004, pulmonary HTN, and recent admission secondary to pneumonia presented to ED and found to have septic shock. Workup during last hospitalization pt was found to have worsening lymphadenopathy causing pulmonary artery obstruction and right heart strain. Secondary to progressive CLL pt was restarted on chemotherapy. She completed first course 2 wks ago. Pt did have fever upon admission of 102 and was hypotensive/tachycardic. I am consulted for CC management. Allergies and Home Medications Allergies Coded Allergies: No Known Drug Allergies (Verified , 09/21/08) Home Medications Allopurinol 300 Mg Tablet, 300 MG PO 1800, (Reported) Aspirin 81 Mg Tablet.dr, 81 MG PO 1800, (Reported) Cholecalciferol (Vitamin D3) 1,000 Unit Tablet, 1,000 UNIT PO DAILY, (Reported) Pinewood-3 Fatty Acids/Fish Oil 1 Each Capsule, 1,200 MG PO DAILY, (Reported) Pantoprazole Sodium 40 Mg Tablet.dr, 40 MG PO DAILY, (Reported) Simvastatin 40 Mg Tablet, 40 MG PO 1800, (Reported) Past Atwuksw-Ybqovt-Owonnz Hx Patient Social History Alcohol Use: Denies Use Recreational Drug Use: No Smoking Status: Never a Smoker 2nd Hand Smoke Exposure: No Recent Foreign Travel: No Contact w/Someone Who Travel: No Recent Infectious Disease Expo: No Recent Hopitalizations: No Immunizations Up To Date Date of Influenza Vaccine: Jun 25, 2017 Seasonal Allergies Seasonal Allergies: No Surgeries History of Surgeries: Yes (LYMPHOMA CA 2004) Respiratory History of Respiratory Disorde: No Respiratory Disorders: Pneumonia Cardiovascular History of Cardiac Disorders: Yes Cardiac Disorders: Coronary Artery Disease, High Cholesterol, Hypertension Neurological History of Neurological Disord: Yes Neurological Disorders: Dementia Reproductive System Hx Reproductive Disorders: Yes (CYSTOCELE, UTEROVAGINAL PROLAPSE) 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 Genitourinary History of Genitourinary Disor: No Gastrointestinal History of Gastrointestinal Di: Yes Gastrointestinal Disorders: Gastroesophageal Reflux Musculoskeletal History of Musculoskeletal Dis: No Endocrine History of Endocrine Disorders: No HEENT History of HEENT Disorders: No Cancer History of Cancer: Yes Cancer: Lymphoma Psychosocial History of Psychiatric Problem: No Integumentary History of Skin or Integumenta: No Blood Transfusions History of Blood Disorders: No Family Medical History Significant Family History: Heart Disease Family Medial History: Dementia 19 MOTHER Myocardial infarction 19 FATHER Pacemaker 19 MOTHER Review of Systems Time Seen by Provider: 08:40 Exam Exam Vital Signs Date Time Temp Pulse Resp B/P (MAP) Pulse Ox O2 Delivery O2 Flow Rate FiO2 11/12/17 06:01 96.7 84 26 149/84 94 Nasal Cannula 1.00 11/12/17 06:00 83 23 149/84 (105) 94 Room Air 11/12/17 05:46 97.3 81 22 153/92 94 Nasal Cannula 1.00 11/12/17 05:00 82 27 150/83 (105) 93 Room Air 11/12/17 04:00 96 Nasal Cannula 2.00 11/12/17 04:00 68 19 149/80 (103) 91 Room Air 11/12/17 03:00 84 27 140/80 (100) 93 Room Air 11/12/17 02:00 71 20 144/42 (76) 95 Room Air 11/12/17 01:00 84 30 142/82 (102) 97 Room Air 11/12/17 01:00 84 11/12/17 00:00 96 Nasal Cannula 2.00 11/12/17 00:00 72 26 134/80 (98) 95 Room Air 11/11/17 23:49 97.4 11/11/17 23:00 74 25 136/71 (92) 93 Room Air 11/11/17 22:00 79 35 135/70 (91) 97 Room Air 11/11/17 21:00 79 22 126/83 (97) 96 Room Air 11/11/17 20:00 81 20 126/64 (84) 94 Room Air 11/11/17 20:00 96 Nasal Cannula 2.00 11/11/17 19:30 99.1 11/11/17 19:00 82 17 95 Room Air 11/11/17 19:00 82 11/11/17 18:00 80 15 117/94 (102) 97 Room Air 11/11/17 18:00 Room Air 11/11/17 16:00 70 22 110/68 (82) 92 Room Air 11/11/17 15:07 98.0 Room Air 11/11/17 15:06 95 Room Air 11/11/17 15:00 80 19 117/68 (84) 94 Room Air 3/25/18 14:47 98.0 75 25 116/62 97 Room Air 11/11/17 14:00 78 19 108/54 (72) 91 Room Air 11/11/17 13:00 80 11/11/17 13:00 80 19 105/62 (76) 92 Room Air 11/11/17 12:58 98.4 81 20 105/62 90 Room Air 11/11/17 12:50 99.0 Room Air 11/11/17 12:49 97 Room Air 11/11/17 12:40 99.0 78 14 108/75 96 Nasal Cannula 1.00 11/11/17 12:00 86 14 90/68 (75) 96 Nasal Cannula 2.00 11/11/17 11:00 79 23 116/71 (86) 97 Nasal Cannula 2.00 11/11/17 10:00 90 14 120/73 (89) 97 Nasal Cannula 2.00 11/11/17 09:00 90 24 131/68 (89) 94 Nasal Cannula 2.00 11/11/17 08:15 97 Nasal Cannula 2.00 11/11/17 08:12 99.9 Nasal Cannula 2.00 11/11/17 08:00 86 13 120/54 (76) 99 Nasal Cannula 2.00 11/11/17 07:08 Nasal Cannula 1.00 I & O 11/12/17 07:00 Intake Total 44582 ml Output Total 1900 ml Balance 58889 ml General Appearance: WD/WN, Anxious (agitated ), Mild Distress HEENT: PERRL/EOMI, No Scleral Icterus (L), No Scleral Icterus (R), Other (dry mucus membranes) Respiratory: Lungs Clear, No Crackles, Decreased Breath Sounds, No Wheezing Cardiovascular: Regular Rate, Rhythm, Normal Peripheral Pulses, Systolic Murmur Capillary Refill: Less Than 3 Seconds Peripheral Pulses: 2+ Dorsalis Pedis (R), 2+ Left Dors-Pedis (L), 2+ Radial Pulses (R), 2+ Radial Pulses (L) Extremity: Normal Capillary Refill, No Calf Tenderness, No Pedal Edema Neurologic/Psychiatric: Alert, Normal Mood/Affect, Other (oriented to person only- pleasantly confused) Skin: Normal Color, Warm/Dry, No Mottled, Petechia (on legs) Results Lab Laboratory Tests 11/10/17 22:50 11/11/17 04:20 11/12/17 03:25 Assessment/Plan Assessment/Plan Septic Shock - now improved -Decrease IVF to 75cc/hr PNumonia -continue zosyn Vanco -Landeros cultures pending Thrombotytopenia, CLL -Hemeonc following -Platlets transfusing Metabolic acidosis -Monitor -IVF Dementia/confusion/agitation -start Risperdal 2cm LLL lung mass on last CT scan -out patient workup 255 Critical Care: Critically Ill Patient LIVE MAYEN DO Nov 12, 2017 07:09
--- NOTE | 2017-11-12 08:18 | Diagnostic Imaging Report ---
Clinical indication: Patient with sepsis, low platelet count and hypotension. Exam: Portable chest x-ray upright view. Comparison: Portable chest x-ray upright view dated 11/11/2017. Findings: There is interval development of mild airspace opacification involving the right mid and lung base regions which may represent infiltrate. Left lung is stable. There is no pleural effusion or pneumothorax. Stable cardiomegaly with no significant pulmonary vascular congestion. There is mild right curvature of the thoracic spine. Impression: 1.: There is interval development of right midlung field and right lung base lung infiltrate. 2: Stable cardiomegaly with no significant pulmonary vascular congestion. 3: The remainder of this exam shows no significant interval change compared to the prior study of comparison. Dictated by: Dictated on workstation # [id number]
[2017-11-12] MEDS: PIPERACILLIN SODIUM/TAZOBACTAM 4.5 GM in NS (IVPB) 100 ML IV SCH ×3 (08:26→20:33)
[2017-11-12] MEDS: risperiDONE 0.25 MG (RisperDAL) TAB PO SCH ×2 (08:29→20:33)
[2017-11-12 09:26] LABS: HEMOGLOBIN 9.5 G/DL (11.5-16.0)
[2017-11-12] MEDS ORDERED: ALLO300T2 PO (09:30)
--- NOTE | 2017-11-12 09:49 | Cardiology Progress Note ---
Subjective Date Seen by Provider: Nov 12, 2017 Time Seen by Provider: 09:43 Subjective/Events-last exam patient is laying down in bed, was seen and evaluated. Complaining of generalized fatigue and loss of energy, interviewed her and her son. It appear that last week she was feeling somewhat better then suddenly became lethargic, confused and had a fever up to 102. Taken to the emergency room and she was noted to have elevated lactic acid in [facility], transferred for evaluation for septic shock, received IV fluid, upon arrival her lactic acid was better. She is currently feeling better but still complaining of generalized weakness and lack of sleep in addition to confusion Review of Systems General: No Chills, No Night Sweats, No Fatigue, No Malaise, No Appetite, Other (confusion) HEENT: No Head Aches, No Visual Changes, No Eye Pain, No Ear Pain, No Dysphasia , No Sinus Congestion, No Post Nasal Drip, No Sore Throat, No Other Pulmonary: No Dyspnea, No Cough, No Pleuritic Chest Pain, No Other Cardiovascular: No: Chest Pain, Palpitations, Orthopnea, Paroxysmal Noc. Dyspnea, Edema, Lt Headedness, Other Focused Exam Evaluation Lactate Level Laboratory Tests 11/10/17 22:55: Lactic Acid Level 1.41 Time of Focused Exam: 11:10 Objective-Cardiology Exam Last Set of Vital Signs Vital Signs 11/12/17 08:20 Temp 97.8 Pulse 72 Resp 26 B/P (MAP) 152/87 Pulse Ox 97 O2 Delivery Nasal Cannula O2 Flow Rate 2.00 Capillary Refill : Less Than 3 Seconds I&O Intake and Output 11/12/17 00:00 Intake Total 9300 ml Output Total 2250 ml Balance 7050 ml Intake Oral 900 ml IV Total 8400 ml Output Urine Total 2250 ml General: Alert, Cooperative, Mild Distress HEENT: Atraumatic, PERRLA Neck: Supple, No JVD, No Thyromegaly Lungs: Clear to Auscultation, Normal Air Movement Heart: Regular Rate, Normal S1, Normal S2, Other (systolic murmur at the left sternal border) Abdomen: Normal Bowel Sounds, Soft, No Tenderness, No Hepatosplenomegaly, No Masses Extremities: No Clubbing, No Cyanosis Skin: No Breakdown, No Significant Lesion Neuro: Normal Speech, Normal Tone Psych/Mental Status: Mood NL Results Lab Laboratory Tests 11/12/17 03:25 11/12/17 09:06 A/P-Cardiology Admission Diagnosis Change in mental status Thrombocytopenia Pulmonary hypertension Coronary artery disease Assessment/Plan Questionable sepsis, currently lactic acid are better, blood pressure is better. Managed by Dr. Cat. In 10 you to monitor Change in mental status with confusion and lethargy. Lack of sleep. Waxing and waning. Currently feeling better. Thrombocytopenia, worse, currently slight improvement after receiving platelet. Managed by Dr. Youssef Acute renal insufficiency, renal function are monitored at this time. Continue with IV fluid and monitor closely Severe pulmonary hypertension with right ventricular strain pattern, CT scan results were reviewed appeared to have lymph node compressing the pulmonary artery and resulting in right heart chamber strain and dilatation, 20 to monitor at this time. No changes Coronary artery disease, most recent cardiac catheterization December 2007 showing heavily calcified LAD with mild to moderate disease up to 60 percent stenosis at the mid LAD, otherwise mild to moderate disease in the rest of the coronary system, stress test done in May 2016 showing no ischemia or infarction with typical female pattern. Continue to monitor RBBB, chronic Hypertension, status post hypotensive episode on admission, currently blood pressure under good control. Continue to monitor Hyperlipidemia, controlled. Lipid/LFTs due again in June 2018, continue to monitor Mild bilateral nonobstructive carotid artery stenosis per carotid duplex Apr 2017, continue to monitor. History of non-Hodgkin's lymphoma, CLL, diagnosed and treated in 2003. Currently seeing and followed by Dr. Rayna Youssef, discussed the management plan with Dr. Durham. Cespedes's esophagus History of one episode of atrial fibrillation, continued be maintained in sinus rhythm. Continue to monitor. Clinical Quality Measures DVT/VTE Risk/Contraindication: Risk Factor Score Per Nursin RFS Level Per Nursing on Admit: 4+=Very High Contraindications-Pharm: Other *list below* Contraindications-Mechi: Other *list below* Other: platetlets 12 BAL LIGHT MD Nov 12, 2017 09:49
[2017-11-12] MEDS: VANCOMYCIN INJECTION 1,000 MG in NS (IVPB) 250 ML IV SCH (11:24)
--- NOTE | 2017-11-12 16:34 | Progress Note-Standard ---
Standard Progress Note Progress Notes/Assess & Plan Date Seen by Provider: Nov 12, 2017 Time Seen by Provider: 16:25 Progress/Assessment & Plan 82-year-old female with history of CLL/SLL initially diagnosed in late 2003 and treated with Rituxan. Recent evidence of progressive disease causing compression of pulmonary artery and right heart strain. Status post chemotherapy with Treanda plus Rituxan regimen completed 2 weeks ago. Patient admitted with fever to 102F and evidence of sepsis. Currently on broad- spectrum antibiotics and IV fluids. Blood pressure in the normal range and IV fluids has been weaned to 75 mL per hour. No temperature spikes. Denied any new complaints. Vital Sign - Last 12Hours Date Time Temp Pulse Resp B/P (MAP) Pulse Ox O2 Delivery O2 Flow Rate FiO2 11/12/17 16:00 77 25 136/76 (96) 94 Nasal Cannula 2.00 11/12/17 12:16 98.4 Physical examination showed an elderly female, weak-appearing, awake and answering questions appropriately although having difficulty remembering details. HEENT normocephalic, extraocular muscles intact, conjunctivae pink, oral mucosa moist. Neck was supple with no JVD. No cervical, supraclavicular or axillary lymphadenopathy palpable. Chest was symmetrical. Lungs fairly clear to auscultation without wheezes or rales. Cardiovascular exam was regular in rate and rhythm. No murmurs or gallops heard. Abdomen was soft, nontender with no hepatosplenomegaly or other masses palpable. Extremities with a few feeding petechiae. Neurological examination grossly intact without focal motor deficits. Laboratory Tests 11/12/17 03:25 11/12/17 09:06 A/P: 1. Febrile illness/sepsis, currently on broad-spectrum antibiotics with Zosyn and vancomycin. Cultures negative so far. Continue. 2. CLL/SLL with progressive disease causing compression of pulmonary arteries and right heart strain. Status post chemotherapy with Treanda plus rituximab regimen completed 2 weeks ago. 3. Thrombocytopenia most likely due to above. Status post platelet transfusion today morning. I would like to repeat a CBC this evening and continue transfusion as needed to maintain platelet count more than 10-20,000. 4. I will follow the patient with you. Focused Exam Evaluation Lactate Level Laboratory Tests 11/10/17 22:55: Lactic Acid Level 1.41 Time of Focused Exam: 11:10 MANISHA MAYFIELD Nov 12, 2017 16:34
[2017-11-12 16:49] LABS: BASOPHILS % (AUTO) 1 % (0-10); EOSINOPHILS # (AUTO) 0.2 10^3/uL (0.0-0.3); EOSINOPHILS % (AUTO) 4 % (0-10); HEMATOCRIT 31 % (35-52); HEMOGLOBIN 10.1 G/DL (11.5-16.0); LYMPHOCYTES # (AUTO) 1.6 X 10^3 (1.0-4.0); LYMPHOCYTES % (AUTO) 32 % (12-44); MEAN CORPUSCULAR HEMOGLOBIN 27 PG (25-34); MEAN CORPUSCULAR HGB CONC 33 G/DL (32-36); MEAN CORPUSCULAR VOLUME 84 FL (80-99); MONOCYTES # (AUTO) 0.3 X 10^3 (0.0-1.0); MONOCYTES % (AUTO) 5 % (0-12); NEUTROPHILS % (AUTO) 58 % (42-75); RED BLOOD COUNT 3.68 10^6/uL (4.35-5.85); WHITE BLOOD COUNT 5.1 10^3/uL (4.3-11.0)
[2017-11-12 16:52] LABS: PLATELET COUNT 5 10^3/uL (130-400)
--- NOTE | 2017-11-12 17:08 | Progress Note-Hospitalist ---
Progress Note HPI/CC on Admission Pt is an 82yoCF known to me from recent admission with a PMH of CLL, pulmonary HTN, and recent admission for pneumonia [facility]. She is unable to provide me any history and asks me to ask her son for details. Her sons states she was seen in the ER yesterday for leg and hip pain. They state she had "tests" done and that nothing was found but they are unsure what the tests were. She was given Toradol and Benadryl and after discussion with Tertiary center about admission for obs given worsening thrombocytopenia. Discharge home was recommended and given that her pain had resolved she was discharged home with her family. She also had a rash at that time on her abd and legs but that has resolved per her and her family after she got one dose of benadryl. Progress Notes/Assess & Plan Date Seen 11/12/17 Time Seen by Provider: 17:06 Diagonsis/Assessment & Plan The patient's an 82-year-old white female known to me from her previous admission. She returns at this time with apparent septic shock. She has chronic lymphocytic leukemia and received a dose of therapy 2 weeks ago. She was now determined to have rather extreme thrombocytopenia. In addition the x- ray is consistent with a right lower lobe pneumonia. New She is feeling quite a good deal better at this time. She reports she has no energy or appetite. Her platelet count is now 11,000 as a function of platelet transfusions. She would like to go to the floor. Her vital signs are satisfactory. Her respiratory rate remains in the 30s. Her SaO2 is satisfactory on O2 at 2 L by nasal cannula. Physical exam: She is alert and recognizes me. She has a moderate number of petechia on the cheeks and upper chest. Small ecchymoses are noted on the dorsal surfaces of both hands and forearms. Lungs are clear to auscultation. CV is regular. Extremities show no pedal edema. Impression: 1.thrombocytopenia secondary to chemotherapy. 2.chest x-ray suggesting infiltrate in the right mid lung. 3.early dementia Plan: Continue IV antibiotics. Monitor CBC for granulocytes and platelets. Transferred to the floor. Focused Exam Evaluation Lactate Level Laboratory Tests 11/10/17 22:55: Lactic Acid Level 1.41 Time of Focused Exam: 11:10 YOGI MENDOZA MD Nov 12, 2017 17:08
[2017-11-13] VITALS (8 sets, daily range): BP systolic 131–175; BP diastolic 74–83
[2017-11-13] MEDS: ACETAMINOPHEN 500 MG TAB (TYLENOL) PO PRN (01:22)
[2017-11-13] MEDS: PIPERACILLIN SODIUM/TAZOBACTAM 4.5 GM in NS (IVPB) 100 ML IV SCH ×2 (05:47→14:11)
[2017-11-13 06:24] LABS: BASOPHILS % (AUTO) 1 % (0-10); EOSINOPHILS # (AUTO) 0.3 10^3/uL (0.0-0.3); EOSINOPHILS % (AUTO) 6 % (0-10); HEMATOCRIT 29 % (35-52); HEMOGLOBIN 9.8 G/DL (11.5-16.0); LYMPHOCYTES # (AUTO) 1.5 X 10^3 (1.0-4.0); LYMPHOCYTES % (AUTO) 33 % (12-44); MEAN CORPUSCULAR HEMOGLOBIN 28 PG (25-34); MEAN CORPUSCULAR HGB CONC 33 G/DL (32-36); MEAN CORPUSCULAR VOLUME 83 FL (80-99); MONOCYTES # (AUTO) 0.2 X 10^3 (0.0-1.0); MONOCYTES % (AUTO) 5 % (0-12); NEUTROPHILS # (AUTO) 2.6 X 10^3 (1.8-7.8); NEUTROPHILS % (AUTO) 56 % (42-75); RED BLOOD COUNT 3.53 10^6/uL (4.35-5.85); WHITE BLOOD COUNT 4.7 10^3/uL (4.3-11.0)
[2017-11-13 06:26] LABS: PLATELET COUNT 7 10^3/uL (130-400)
--- NOTE | 2017-11-13 08:14 | Cardiology Progress Note ---
Subjective Date Seen by Provider: Nov 13, 2017 Time Seen by Provider: 08:12 Subjective/Events-last exam Patient is sitting in a chair, feeling better, denied any chest pain or shortness of breath. No palpitation Review of Systems General: No Chills, No Night Sweats, Fatigue, No Malaise, No Appetite, No Other HEENT: No Head Aches, No Visual Changes, No Eye Pain, No Ear Pain, No Dysphasia , No Sinus Congestion, No Post Nasal Drip, No Sore Throat, No Other Pulmonary: No Dyspnea, No Cough, No Pleuritic Chest Pain, No Other Cardiovascular: No: Chest Pain, Palpitations, Orthopnea, Paroxysmal Noc. Dyspnea, Edema, Lt Headedness, Other Focused Exam Evaluation Lactate Level Laboratory Tests 11/10/17 22:55: Lactic Acid Level 1.41 Time of Focused Exam: 11:10 Objective-Cardiology Exam Last Set of Vital Signs Vital Signs 11/13/17 03:57 Temp 97.4 Pulse 78 Resp 20 B/P (MAP) 145/78 (100) Pulse Ox 91 O2 Delivery Nasal Cannula O2 Flow Rate 3.00 Capillary Refill : Less Than 3 Seconds I&O Intake and Output 11/13/17 00:00 Intake Total 10867 ml Output Total 2775 ml Balance 94371 ml Intake Oral 800 ml IV Total 27018 ml Output Urine Total 2775 ml # Bowel Movements 3 General: Alert, Cooperative, Mild Distress HEENT: Atraumatic, PERRLA Neck: Supple, No JVD, No Thyromegaly Lungs: Clear to Auscultation, Normal Air Movement Heart: Regular Rate, Normal S1, Normal S2, No Murmurs, Other (systolic murmur at the left sternal border) Abdomen: Normal Bowel Sounds, Soft, No Tenderness, No Hepatosplenomegaly, No Masses Extremities: No Clubbing, No Cyanosis Skin: No Breakdown, No Significant Lesion Neuro: Normal Speech, Normal Tone Psych/Mental Status: Mood NL Results Lab Laboratory Tests 11/12/17 09:06 11/12/17 16:45 11/13/17 05:47 A/P-Cardiology Admission Diagnosis Change in mental status Thrombocytopenia Pulmonary hypertension Coronary artery disease Assessment/Plan Questionable sepsis, currently lactic acid are better, blood pressure is better , receiving antibiotic. Feeling better. Managed by primary care physician. Change in mental status with confusion and lethargy. Better at this time. Continue to monitor Thrombocytopenia, secondary to chemotherapy, followed and managed by Dr. Youssef. Acute renal insufficiency, renal function are monitored at this time. Continue with IV fluid and monitor closely Severe pulmonary hypertension with right ventricular strain pattern, CT scan results were reviewed appeared to have lymph node compressing the pulmonary artery and resulting in right heart chamber strain and dilatation, continue to monitor at this time. No changes are recommended Coronary artery disease, most recent cardiac catheterization December 2007 showing heavily calcified LAD with mild to moderate disease up to 60 percent stenosis at the mid LAD, otherwise mild to moderate disease in the rest of the coronary system, stress test done in May 2016 showing no ischemia or infarction with typical female pattern. Continue to monitor RBBB, chronic Hypertension, status post hypotensive episode on admission, currently blood pressure under good control. Continue to monitor Hyperlipidemia, controlled. Lipid/LFTs due again in June 2018, continue to monitor Mild bilateral nonobstructive carotid artery stenosis per carotid duplex Apr 2017, continue to monitor. History of non-Hodgkin's lymphoma, CLL, diagnosed and treated in 2003. Currently seeing and followed by Dr. Rayna Youssef, discussed the management plan with Dr. Durham. Cespedes's esophagus History of one episode of atrial fibrillation, continued be maintained in sinus rhythm. Continue to monitor. Clinical Quality Measures DVT/VTE Risk/Contraindication: Risk Factor Score Per Nursin RFS Level Per Nursing on Admit: 4+=Very High Contraindications-Pharm: Other *list below* Contraindications-Mechi: Other *list below* Other: [email or web address] 12 BAL LIGHT MD Nov 13, 2017 08:14
[2017-11-13] MEDS: risperiDONE 0.25 MG (RisperDAL) TAB PO SCH ×2 (08:22→22:04)
[2017-11-13] MEDS ORDERED: TROUGH ORDER-PHARMACY XX NR (09:00)
--- NOTE | 2017-11-13 14:43 | Pulmonary Progress Note ---
Subjective Time Seen by Provider: 14:43 Subjective/Events-last exam No complications noted. Focused Exam Evaluation Lactate Level Laboratory Tests 11/10/17 22:55: Lactic Acid Level 1.41 Time of Focused Exam: 11:10 Exam Exam Vital Signs Date Time Temp Pulse Resp B/P (MAP) Pulse Ox O2 Delivery O2 Flow Rate FiO2 11/13/17 13:20 Nasal Cannula 2.00 11/13/17 12:00 96.2 79 20 161/74 (103) 97 Nasal Cannula 3.00 11/13/17 08:00 96.0 91 20 131/83 (99) 92 Nasal Cannula 3.00 11/13/17 08:00 9 Nasal Cannula 2.00 11/13/17 03:57 97.4 78 20 145/78 (100) 91 Nasal Cannula 3.00 11/13/17 02:46 97.4 78 20 145/78 (100) 91 Nasal Cannula 3.00 11/12/17 23:21 97.1 75 19 137/82 (100) 96 Nasal Cannula 3.00 11/12/17 20:00 93 Nasal Cannula 2.00 11/12/17 19:03 97.5 91 21 134/62 (86) 92 Nasal Cannula 2.00 11/12/17 19:03 97.5 91 20 134/62 95 Nasal Cannula 2.00 11/12/17 18:00 78 28 151/84 (106) 95 Nasal Cannula 2.00 11/12/17 18:00 97.2 73 32 151/84 95 Nasal Cannula 2.00 11/12/17 17:30 97.1 76 31 147/91 94 Nasal Cannula 2.00 11/12/17 17:00 77 29 147/91 (109) 95 Nasal Cannula 2.00 11/12/17 16:25 95 Nasal Cannula 2.00 11/12/17 16:00 77 25 136/76 (96) 94 Nasal Cannula 2.00 11/12/17 15:00 73 26 129/73 (91) 92 Nasal Cannula 2.00 I & O 11/13/17 07:00 Intake Total 1500 ml Output Total 2550 ml Balance -1050 ml General Appearance: WD/WN, Mild Distress HEENT: PERRL/EOMI, No Scleral Icterus (L), No Scleral Icterus (R), Other (dry mucus membranes) Respiratory: Lungs Clear, No Accessory Muscle Use, No Respiratory Distress, Decreased Breath Sounds Cardiovascular: Regular Rate, Rhythm, Normal Peripheral Pulses, Systolic Murmur Capillary Refill: Less Than 3 Seconds Peripheral Pulses: 2+ Dorsalis Pedis (R), 2+ Left Dors-Pedis (L), 2+ Radial Pulses (R), 2+ Radial Pulses (L) Extremity: No Calf Tenderness, No Swelling Neurologic/Psychiatric: Alert, Normal Mood/Affect (pleasantly confused), No Aphasia, No Facial Droop, Other (alert to person only) Skin: Warm/Dry, Petechia, Other (flushing of cheeks) Results Lab Laboratory Tests 11/12/17 03:25 11/12/17 09:06 11/12/17 16:45 11/13/17 05:47 Assessment/Plan Assessment/Plan Septic Shock - now improved PNumonia - zosyn -Landeros cultures Thrombotytopenia, CLL -Hemeonc following Metabolic acidosis -Monitor -IVF Dementia/confusion/agitation - Risperdal 2cm LLL lung mass on last CT scan -out patient workup 233 Critical Care: Critically Ill Patient LIVE MAYEN DO Nov 13, 2017 14:43
--- NOTE | 2017-11-13 16:51 | Progress Note-Hospitalist ---
Progress Note HPI/CC on Admission Pt is an 82yoCF known to me from recent admission with a PMH of CLL, pulmonary HTN, and recent admission for pneumonia [facility]. She is unable to provide me any history and asks me to ask her son for details. Her sons states she was seen in the ER yesterday for leg and hip pain. They state she had "tests" done and that nothing was found but they are unsure what the tests were. She was given Toradol and Benadryl and after discussion with Tertiary center about admission for obs given worsening thrombocytopenia. Discharge home was recommended and given that her pain had resolved she was discharged home with her family. She also had a rash at that time on her abd and legs but that has resolved per her and her family after she got one dose of benadryl. Progress Notes/Assess & Plan Date Seen 11/13/17 Time Seen by Provider: 16:49 Assessment & Plan The patient's an 82-year-old white female known to me from her previous admission. She returns at this time with apparent septic shock. She has chronic lymphocytic leukemia and received a dose of therapy 2 weeks ago. She was now determined to have rather extreme thrombocytopenia. In addition the x- ray is consistent with a right lower lobe pneumonia. New She is feeling quite a good deal better at this time. She reports she has no energy or appetite. Her platelet count is now 11,000 as a function of platelet transfusions. She would like to go to the floor. Her vital signs are satisfactory. Her respiratory rate remains in the 30s. Her SaO2 is satisfactory on O2 at 2 L by nasal cannula. Physical exam: She is alert and recognizes me. She has a moderate number of petechia on the cheeks and upper chest. Small ecchymoses are noted on the dorsal surfaces of both hands and forearms. Lungs are clear to auscultation. CV is regular. Extremities show no pedal edema. Impression: 1.thrombocytopenia secondary to chemotherapy. 2.chest x-ray suggesting infiltrate in the right mid lung. 3.early dementia Plan: Continue IV antibiotics. Monitor CBC for granulocytes and platelets. Transferred to the floor. Focused Exam Evaluation Lactate Level Laboratory Tests 11/10/17 22:55: Lactic Acid Level 1.41 Time of Focused Exam: 11:10 YOGI MENDOZA MD Nov 13, 2017 16:50
--- NOTE | 2017-11-13 16:55 | Progress Note-Hospitalist ---
Progress Note HPI/CC on Admission Pt is an 82yoCF known to me from recent admission with a PMH of CLL, pulmonary HTN, and recent admission for pneumonia who [facility]. She is unable to provide me any history and asks me to ask her son for details. Her sons states she was seen in the ER yesterday for leg and hip pain. They state she had "tests" done and that nothing was found but they are unsure what the tests were. She was given Toradol and Benadryl and after discussion with Tertiary center about admission for obs given worsening thrombocytopenia. Discharge home was recommended and given that her pain had resolved she was discharged home with her family. She also had a rash at that time on her abd and legs but that has resolved per her and her family after she got one dose of benadryl. Progress Notes/Assess & Plan Date Seen 11/13/17 Assessment & Plan The patient's platelet count this morning was 7000 again. She has been afebrile. A 1 unit platelet pack had been ordered, I am told that we are having to get new supply. The family states that she had not slept in several days but is now sleeping rather peacefully all day. Physical exam: She is indeed it is sleeping and appears peaceful. There is no active evidence of bleeding. Lungs show a slight tachypnea but are clear. CV is regular. Impression: Thrombocytopenia secondary to chemotherapy. 2.CLL/lymphoma. 3.decreased level of mentation/delirium. Plan: 1 unit platelet transfusion. It was discussed with the family that her lack of progress is becoming more more discouraging. As she has been afebrile for several days I am also discontinuing her Zosyn. Focused Exam Evaluation Lactate Level Laboratory Tests 11/10/17 22:55: Lactic Acid Level 1.41 Time of Focused Exam: 11:10 YOGI MENDOZA MD Nov 13, 2017 16:55
--- NOTE | 2017-11-13 17:26 | Progress Note-Standard ---
Standard Progress Note Progress Notes/Assess & Plan Date Seen by Provider: Nov 13, 2017 Time Seen by Provider: 17:20 Progress/Assessment & Plan 82-year-old female with history of CLL/SLL initially diagnosed in late 2003 and treated with Rituxan. Recent evidence of progressive disease causing compression of pulmonary artery and right heart strain. Status post chemotherapy with Treanda plus Rituxan regimen completed 2-3 weeks ago. Patient admitted with fever to 102F and evidence of sepsis. No temperature spikes. Confused as to place and time today. Does not appear in any acute distress. Vital Sign - Last 12Hours Date Time Temp Pulse Resp B/P (MAP) Pulse Ox O2 Delivery O2 Flow Rate FiO2 11/13/17 16:00 98.4 78 18 175/79 (111) 97 Nasal Cannula 3.00 Physical examination showed an elderly female, weak-appearing, awake and slightly more confused today as to place and time. HEENT normocephalic, extraocular muscles intact, conjunctivae pink, oral mucosa moist. Neck was supple with no JVD. No cervical, supraclavicular or axillary lymphadenopathy palpable. Chest was symmetrical. Lungs fairly clear to auscultation without wheezes or rales. Cardiovascular exam was regular in rate and rhythm. No murmurs or gallops heard. Abdomen was soft, nontender with no hepatosplenomegaly or other masses palpable. Extremities with a few feeding petechiae. Neurological examination grossly intact without focal motor deficits. Laboratory Tests 11/13/17 05:47 All cultures have been negative so far. A/P: 1. Febrile illness/sepsis, on antibiotics with Zosyn and vancomycin. Cultures negative so far. Antibiotics being weaned off. 2. CLL/SLL with progressive disease causing compression of pulmonary arteries and right heart strain. Status post chemotherapy with Treanda plus rituximab regimen completed 2 weeks ago. 3. Thrombocytopenia most likely due to above. Platelet transfusion pending. I will check for other etiologies for thrombocytopenia including DTIC, TTP, medication effect etc. Overall prognosis guarded. 4. I will follow the patient with you. Focused Exam Evaluation Lactate Level Laboratory Tests 11/10/17 22:55: Lactic Acid Level 1.41 Time of Focused Exam: 11:10 MANISHA MAYFIELD Nov 13, 2017 17:26
[2017-11-13] MEDS: NS IV 500 ML 500 ML IV SCH (19:45)
[2017-11-14] VITALS (8 sets, daily range): BP systolic 128–178; BP diastolic 67–89
[2017-11-14 05:51] LABS: BASOPHILS % (AUTO) 1 % (0-10); EOSINOPHILS # (AUTO) 0.3 10^3/uL (0.0-0.3); EOSINOPHILS % (AUTO) 6 % (0-10); HEMATOCRIT 28 % (35-52); HEMOGLOBIN 9.5 G/DL (11.5-16.0); LYMPHOCYTES # (AUTO) 1.8 X 10^3 (1.0-4.0); LYMPHOCYTES % (AUTO) 39 % (12-44); MEAN CORPUSCULAR HEMOGLOBIN 28 PG (25-34); MEAN CORPUSCULAR HGB CONC 34 G/DL (32-36); MEAN CORPUSCULAR VOLUME 82 FL (80-99); MONOCYTES # (AUTO) 0.4 X 10^3 (0.0-1.0); MONOCYTES % (AUTO) 8 % (0-12); NEUTROPHILS # (AUTO) 2.1 X 10^3 (1.8-7.8); NEUTROPHILS % (AUTO) 46 % (42-75); RED BLOOD COUNT 3.46 10^6/uL (4.35-5.85); RED CELL DISTRIBUTION WIDTH 15.8 % (10.0-14.5); WHITE BLOOD COUNT 4.5 10^3/uL (4.3-11.0)
--- NOTE | 2017-11-14 05:56 | Pulmonary Progress Note ---
Subjective Time Seen by Provider: 05:56 Subjective/Events-last exam Pt appears to be doing better no complications noted. Focused Exam Time of Focused Exam: 11:10 Exam Exam Vital Signs Date Time Temp Pulse Resp B/P (MAP) Pulse Ox O2 Delivery O2 Flow Rate FiO2 11/14/17 04:00 97.9 88 15 171/89 (116) 93 Nasal Cannula 2.00 11/14/17 00:12 98.6 107 20 141/88 (105) 92 Nasal Cannula 2.00 11/13/17 22:45 98.7 89 18 168/79 95 Nasal Cannula 2.00 11/13/17 22:17 Nasal Cannula 2.00 11/13/17 20:18 98.4 87 18 154/74 95 Nasal Cannula 2.00 11/13/17 20:00 98.9 90 18 154/74 (100) 97 Nasal Cannula 3.00 11/13/17 20:00 9 Nasal Cannula 2.00 11/13/17 16:00 98.4 78 18 175/79 (111) 97 Nasal Cannula 3.00 11/13/17 13:20 Nasal Cannula 2.00 11/13/17 12:00 96.2 79 20 161/74 (103) 97 Nasal Cannula 3.00 11/13/17 08:00 96.0 91 20 131/83 (99) 92 Nasal Cannula 3.00 11/13/17 08:00 9 Nasal Cannula 2.00 I & O 11/14/17 07:00 Intake Total 750 ml Output Total 1650 ml Balance -900 ml General Appearance: No Apparent Distress, WD/WN HEENT: PERRL/EOMI, No Scleral Icterus (L), No Scleral Icterus (R), Other (dry mucus membranes) Respiratory: Lungs Clear, No Accessory Muscle Use, No Respiratory Distress, Decreased Breath Sounds Cardiovascular: Regular Rate, Rhythm, Normal Peripheral Pulses, Systolic Murmur Capillary Refill: Less Than 3 Seconds Peripheral Pulses: 2+ Dorsalis Pedis (R), 2+ Left Dors-Pedis (L), 2+ Radial Pulses (R), 2+ Radial Pulses (L) Extremity: No Calf Tenderness, No Swelling Neurologic/Psychiatric: Alert, Normal Mood/Affect (pleasantly confused), No Aphasia, No Facial Droop, Other (alert to person only) Skin: Warm/Dry, Petechia, Other (flushing of cheeks) Results Lab Laboratory Tests 11/12/17 09:06 11/12/17 16:45 11/13/17 05:47 Assessment/Plan Assessment/Plan PNumonia - Abx have been D/C'd -Landeros cultures -Repeat CXR Thrombotytopenia, CLL -Hemeonc following Metabolic acidosis nonanion gapped -Monitor -IVF Dementia/confusion/agitation - Risperdal 2cm LLL lung mass on last CT scan -out patient workup 232 Critical Care: Critically Ill Patient LIVE MAYEN DO Nov 14, 2017 05:56
[2017-11-14 05:58] LABS: PLATELET COUNT 9 10^3/uL (130-400)
[2017-11-14 06:04] LABS: INR 1.1 (0.8-1.4); PROTHROMBIN TIME PATIENT 14.3 SEC (12.2-14.7)
[2017-11-14 06:06] LABS: FIBRIN DEGRADATION PRODUCTS 3.12 UG/ML (0.00-0.49)
[2017-11-14 06:13] LABS: ALANINE AMINOTRANSFERASE 13 U/L (0-55); ALBUMIN 3.1 GM/DL (3.2-4.5); ALKALINE PHOSPHATASE 60 U/L (40-136); BILIRUBIN,TOTAL 0.9 MG/DL (0.1-1.0); BUN/CREATININE RATIO 11; CALCIUM 8.5 MG/DL (8.5-10.1); CARBON DIOXIDE 23 MMOL/L (21-32); CHLORIDE 111 MMOL/L (98-107); GFR ESTIMATED > 60; GLUCOSE 100 MG/DL (70-105); POTASSIUM 3.4 MMOL/L (3.6-5.0); SODIUM 142 MMOL/L (135-145); TOTAL PROTEIN 5.2 GM/DL (6.4-8.2)
[2017-11-14 07:28] LABS: ANISOCYTOSIS SLIGHT; BAND NEUTROPHILS 0 %; BASOPHILS % (MANUAL) 0 %; EOSINOPHILS % (MANUAL) 5 %; LYMPHOCYTES % (MANUAL) 39 %; MONOCYTES % (MANUAL) 6 %; NEUTROPHILS % (MANUAL) 50 %; POLYCHROMASIA SLIGHT
--- NOTE | 2017-11-14 08:27 | Diagnostic Imaging Report ---
INDICATION: Cough and shortness of breath. Time of exam 7:55 AM Comparison is made with prior study from 11/12/2017. The heart size is stable. There has been some improved aeration to the lungs. There is some mild residual density in the left base. There may be a small amount of residual pleural fluid on the left. No pneumothorax is seen. IMPRESSION: Improved aeration. Continued followup to confirm complete clearing is recommended. Dictated by: Dictated on workstation # [id number]
--- NOTE | 2017-11-14 08:34 | Cardiology Progress Note ---
Subjective Date Seen by Provider: Nov 14, 2017 Time Seen by Provider: 08:32 Subjective/Events-last exam Patient is asleep in bed. Easily awakens to answer questions. Denies any CP or dyspnea. C/o fatigue Focused Exam Time of Focused Exam: 11:10 Objective-Cardiology Exam Last Set of Vital Signs Vital Signs 11/14/17 04:00 Temp 97.9 Pulse 88 Resp 15 B/P (MAP) 171/89 (116) Pulse Ox 93 O2 Delivery Nasal Cannula O2 Flow Rate 2.00 Capillary Refill : Less Than 3 Seconds I&O Intake and Output 11/14/17 00:00 Intake Total 1000 ml Output Total 2450 ml Balance -1450 ml Intake Oral 1000 ml Output Urine Total 2450 ml # Bowel Movements 2 General: Alert, Cooperative, Mild Distress HEENT: Atraumatic, PERRLA Neck: Supple, No JVD, No Thyromegaly Lungs: Clear to Auscultation, Normal Air Movement Heart: Regular Rate, Normal S1, Normal S2, No Murmurs, Other (systolic murmur at the left sternal border) Abdomen: Normal Bowel Sounds, Soft, No Tenderness, No Hepatosplenomegaly, No Masses Extremities: No Clubbing, No Cyanosis Skin: No Breakdown, No Significant Lesion Neuro: Normal Speech, Normal Tone Psych/Mental Status: Mood NL Results Lab Laboratory Tests 11/14/17 05:32 A/P-Cardiology Admission Diagnosis Change in mental status Thrombocytopenia Pulmonary hypertension Coronary artery disease Assessment/Plan Questionable sepsis, currently lactic acid are better, blood pressure is better , receiving antibiotic. Feeling better. Managed by primary care physician. Change in mental status with confusion and lethargy. Appears better at this time. Continue to monitor Thrombocytopenia, secondary to chemotherapy, followed and managed by Dr. Youssef. Acute renal insufficiency, renal function are monitored at this time. Continue with IV fluid and monitor closely Severe pulmonary hypertension with right ventricular strain pattern, CT scan results were reviewed appeared to have lymph node compressing the pulmonary artery and resulting in right heart chamber strain and dilatation, continue to monitor at this time. No changes are recommended Coronary artery disease, most recent cardiac catheterization December 2007 showing heavily calcified LAD with mild to moderate disease up to 60 percent stenosis at the mid LAD, otherwise mild to moderate disease in the rest of the coronary system, stress test done in May 2016 showing no ischemia or infarction with typical female pattern. Continue to monitor RBBB, chronic Hypertension, status post hypotensive episode on admission, currently blood pressure under good control. Continue to monitor Hyperlipidemia, controlled. Lipid/LFTs due again in June 2018, continue to monitor Mild bilateral nonobstructive carotid artery stenosis per carotid duplex Apr 2017, continue to monitor. History of non-Hodgkin's lymphoma, CLL, diagnosed and treated in 2003. Currently seeing and followed by Dr. Rayna Youssef, discussed the management plan with Dr. Durham. Cespedes's esophagus History of one episode of atrial fibrillation, continued be maintained in sinus rhythm. Continue to monitor. Clinical Quality Measures DVT/VTE Risk/Contraindication: Risk Factor Score Per Nursin RFS Level Per Nursing on Admit: 4+=Very High Contraindications-Pharm: Other *list below* Contraindications-Mechi: Other *list below* Other: DENNIS Reis Nov 14, 2017 08:34
[2017-11-14] MEDS: risperiDONE 0.25 MG (RisperDAL) TAB PO SCH ×2 (09:19→20:14)
[2017-11-14] MEDS ORDERED: amLODIPine 5 MG (NORVASC) TAB PO NR (10:47)
[2017-11-14] MEDS ORDERED: LACTULOSE SYRUP 10GM/15ML (ENULOSE) 30ML UDC PO NR (10:52)
--- NOTE | 2017-11-14 11:25 | Progress Note-Hospitalist ---
Progress Note HPI/CC on Admission Pt is an 82yoCF known to me from recent admission with a PMH of CLL, pulmonary HTN, and recent admission for pneumonia [facility]. She is unable to provide me any history and asks me to ask her son for details. Her sons states she was seen in the ER yesterday for leg and hip pain. They state she had "tests" done and that nothing was found but they are unsure what the tests were. She was given Toradol and Benadryl and after discussion with Tertiary center about admission for obs given worsening thrombocytopenia. Discharge home was recommended and given that her pain had resolved she was discharged home with her family. She also had a rash at that time on her abd and legs but that has resolved per her and her family after she got one dose of benadryl. Progress Notes/Assess & Plan Date Seen 11/14/17 Time Seen by Provider: 09:30 Assessment & Plan Chart Review: Platelet count 9000 status post one but platelets given yesterday Hgb 9.5 CMP normal BP elevated, will start [employer]: Pt did not get blood until last night, the blood here was compromised, so they had to get another bag Dr. Youssef is on board Pt is able to get up to chair Pt is awake this am, but slept all day yesterday. Pt had not slept for three days before that. PT strengthening will likely help Pt still has Jerry Pt Interview: Pt states she feels she is doing better. Pt was informed that PT will be in to work with her Pt was informed that I will confer with Dr. Youssef Pt confirms eating and drinking okay Pt believes she had BM, no blood in stool noticed Physical exam stable. Lung function diminished Pt denies experiencing pain Pt was encouraged to ambulate Pt's confirmed nose bleed yesterday Pt lives with , will help her when she returns home. was present upon interview Afebrile, vital signs stable except for blood pressure elevation, frail, debilitated, family at bedside Regular rate and rhythm, clear to auscultation bilaterally but diminished in the bases bilaterally No edema normal range of motion Assessment: Severe thrombocytopenia with subtle epistaxis noted status post one unit of platelets given yesterday and resulted in 9000 platelet count today Severe debility starting physical therapy and may need skilled treatment or home health Delirium with baseline mild dementia Hypertension [id number] Constipation Plan: IS to prevent a pneumonia Lactulose Confer with Dr. Youssef PT Swingbed eval Monitor closely but overall prognosis is poor Scribed by Ele Gar under direct supervision of Dr. Angela Mendoza. Focused Exam Time of Focused Exam: 11:10 ANGELA MENDOZA DO Nov 14, 2017 11:25
--- NOTE | 2017-11-14 11:31 | Physical Therapy Evaluation ---
PT Evaluation-General Medical Diagnosis Admission Date Nov 10, 2017 at 22:38 Medical Diagnosis: septic shock Onset Date: Nov 10, 2017 Therapy Diagnosis Therapy Diagnosis: generalized weakness/debility Height/Weight Height (Feet): 5 Height (Inches): 2.00 Weight (Pounds): 140 Weight (Ounces): 6.2 Precautions Precautions/Isolations: Fall Prevention, Standard Precautions Weight Bear Status Right Lower Extremity: Right Full Weight Bearing Left Lower Extremity: Left Full Weight Bearing Referral Physician: Kelly Reason for Referral: Evaluation/Treatment Medical History Pertinent Medical History: CAD, Dementia, GERD, HTN, Lymphoma Current History CLL/transfer from [facility] in septic shock Reviewed History: Yes Social History Home: Single Level Current Living Status: Alone Prior/Core FIM Prior Level of Function Functional Dade Measure 0=Not Assessed/NA 4=Minimal Assistance 1=Total Assistance 5=Supervision or Setup 2=Maximal Assistance 6=Modified Dade 3=Moderate Assistance 7=Complete [place] Bed Mobility: 7 Transfers (B,C,W/C) (FIM): 7 Gait: 7 PT Evaluation-Current Subjective Patient agrees to PT. Son present and reports she is more clear today. Pain Numeric Pain Scale: 0-No Pain Location: No Pain Reported Objective Patient Orientation: Person Problem Solving: Poor Attachments: Oxygen (2L) ROM/Strength ROM Lower Extremities bilateral LE WNL Strength Lower Extremities right knee flexion/extension 3+5; hip flexion 3+/5; DF/PF 4/5 left knee flexion/extension 3+5; hip flexion 3+/5; DF/PF 4/5 Integumentary/Posture Integumentary refer to nursing notes Bowel Incontinence: No Bladder Incontinence: Edwards Cath Posture WFL Neuromuscular (Tone, Coordination, Reflexes) grossly intact Sensory Vision: Wears Glasses Hearing: Functional Sensation Right Lower Extremit: Intact Sensation Left Lower Extremity: Intact Transfers Functional [place] Measure 0=Not Assessed/NA 4=Minimal Assistance 1=Total Assistance 5=Supervision or Setup 2=Maximal Assistance 6=Modified Dade 3=Moderate Assistance 7=Complete D[place] Transfers (B, C, W/C) (FIM): 5 Scootin Rollin Supine to/from Sit: 5 Sit to/from Stand: 5 Gait Mode of Locomotion: Walk Anticipated Mode of Locomotion: Walk Gait (FIM): 5 Distance (FIM): 3=150 ft Distance: 415' Gait Level of Assist: 5 Gait Persons Needed: 1 Gait Assistive Device: FWW Comments/Gait Description steady, functional gait sequence with FWW Balance Sitting Static: Normal Sitting Dynamic: Normal Standing Static: Normal Standing Dynamic: Normal Assessment/Needs 82 y.o. female, will benefit from short term skilled PT to address functional strength and mobility to ensure safe return to home or care facility at maximum LOF. PT educated family and patient on safety awareness and use of FWW for stability. Family voices understanding. Rehab Potential: Fair Post Rehab Potential-Barriers: disease process PT Product Grader Goals Product Grader Goals PT Chcf Goals Time Frame: Nov 23, 2017 Transfers (B,C,W/C) (FIM): 6 Gait (FIM): 6 Gait distance (FIM): 3=150 ft Distance: 450' Gait Level of Assist: 6 Gait Assistive Device: FWW PT Plan Problem List Problem List: Activity Tolerance, Functional Strength, Safety, Gait, Transfer Treatment/Plan Treatment Plan: Continue Plan of Care Treatment Plan: Bed Mobility, Education, Functional Activity Connor, Functional Strength, Gait, Safety, Therapeutic Exercise, Transfers Treatment Duration: Nov 23, 2017 Frequency: 6 times per week Estimated Hrs Per Day: .25 hour per day Patient and/or Family Agrees t: Yes Safety Risks/Education Patient Education: Safety Issues Teaching Recipient: Patient, Family Teaching Methods: Discussion Response to Teaching: Verbalize Understanding Discharge Recommendations Therapy D/C Recommendations: Assisted Living Time/GCodes Time In: 1100 Time Out: 1123 Total Billed Treatment Time: 23 Total Billed Treatment 1 visit EVModC 23 min CHANCE PATEL PT Nov 14, 2017 11:31
[2017-11-14] MEDS ORDERED: ACETAMINOPHEN 500 MG TAB (TYLENOL) PO NR (13:30)
[2017-11-14] MEDS ORDERED: DEXAMETHASONE 4 MG TAB (DECADRON) PO NR (13:30)
--- NOTE | 2017-11-14 13:30 | Progress Note-Standard ---
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 Recent evidence of progressive disease causing compression of pulmonary artery and right heart strain. Status post chemotherapy with Treanda plus Rituxan regimen completed 3 weeks ago. Patient admitted with fever to 102F and evidence of sepsis. No temperature spikes since then. Slept well last night. Much more oriented today. Vital Sign - Last 12Hours Date Time Temp Pulse Resp B/P (MAP) Pulse Ox O2 Delivery O2 Flow Rate FiO2 11/14/17 11:18 Nasal Cannula 2.00 11/14/17 08:00 96.8 93 16 178/83 (114) 96 Physical examination showed an elderly female, weak-appearing, awake and oriented, in no acute distress. HEENT normocephalic, extraocular muscles intact, conjunctivae pink, oral mucosa moist. Neck was supple with no JVD. No cervical, supraclavicular or axillary lymphadenopathy palpable. Chest was symmetrical. Lungs fairly clear to auscultation without wheezes or rales. Cardiovascular exam was regular in rate and rhythm. No murmurs or gallops heard. Abdomen was soft, nontender with no hepatosplenomegaly or other masses palpable. Extremities with no petechiae. Neurological examination grossly intact without focal motor deficits. Laboratory Tests 11/14/17 05:32 All cultures have been negative so far. A/P: 1. Febrile illness/sepsis, s/p antibiotic therapy with Zosyn and vancomycin. Cultures negative so far. Antibiotics weaned off. 2. CLL/SLL with progressive disease causing compression of pulmonary arteries and right heart strain. Status post chemotherapy with Treanda plus rituximab regimen completed 3 weeks ago. 3. Thrombocytopenia most likely due to above. Platelet transfusion today. Reviewed peripheral smear today which showed no platelet clumps. Mild anisopoikilocytosis noted with rare(<1) schistocytes per high-power field. LDH normal. No features of DIC or TTP. 4. Deconditioning, agree with physical therapy for strengthening and ambulation. Recheck lab work tomorrow. Home when stable. Focused Exam Time of Focused Exam: 11:10 MANISHA MAYFIELD Nov 14, 2017 13:30
--- NOTE | 2017-11-14 14:48 | Cardiology Progress Note ---
Subjective Date Seen by Provider: Nov 14, 2017 Time Seen by Provider: 14:47 Subjective/Events-last exam patient is sitting in a chair, feeling better. Denied any chest pain. No palpitation. Syncope or near syncopal episodes Review of Systems General: No Chills, No Night Sweats, Fatigue, Malaise, No Appetite, No Other HEENT: No Head Aches, No Visual Changes, No Eye Pain, No Ear Pain, No Dysphasia , No Sinus Congestion, No Post Nasal Drip, No Sore Throat, No Other Pulmonary: No Dyspnea, No Cough, No Pleuritic Chest Pain, No Other Cardiovascular: No: Chest Pain, Palpitations, Orthopnea, Paroxysmal Noc. Dyspnea, Edema, Lt Headedness, Other Focused Exam Time of Focused Exam: 11:10 Objective-Cardiology Exam Last Set of Vital Signs Vital Signs 11/14/17 14:27 Temp 97.5 Pulse 98 Resp 18 B/P (MAP) 134/77 Pulse Ox 98 O2 Delivery Nasal Cannula O2 Flow Rate 2.00 Capillary Refill : Less Than 3 Seconds I&O Intake and Output 11/14/17 00:00 Intake Total 1000 ml Output Total 2450 ml Balance -1450 ml Intake Oral 1000 ml Output Urine Total 2450 ml # Bowel Movements 2 General: Alert, Cooperative, Mild Distress HEENT: Atraumatic, PERRLA Neck: Supple, No JVD, No Thyromegaly Lungs: Clear to Auscultation, Normal Air Movement Heart: Regular Rate, Normal S1, Normal S2, No Murmurs, Other (systolic murmur at the left sternal border) Abdomen: Normal Bowel Sounds, Soft, No Tenderness, No Hepatosplenomegaly, No Masses Extremities: No Clubbing, No Cyanosis Skin: No Breakdown, No Significant Lesion Neuro: Normal Speech, Normal Tone Psych/Mental Status: Mood NL Results Lab Laboratory Tests 11/14/17 05:32 A/P-Cardiology Admission Diagnosis Change in mental status Thrombocytopenia Pulmonary hypertension Coronary artery disease Assessment/Plan Change in mental status with confusion and lethargy. Appears better at this time. Continue to monitor Thrombocytopenia, secondary to chemotherapy, followed and managed by Dr. Youssef. Acute renal insufficiency, renal function are monitored at this time. Continue with IV fluid and monitor closely Severe pulmonary hypertension with right ventricular strain pattern, CT scan results were reviewed appeared to have lymph node compressing the pulmonary artery and resulting in right heart chamber strain and dilatation, continue to monitor at this time. No changes are recommended Coronary artery disease, most recent cardiac catheterization December 2007 showing heavily calcified LAD with mild to moderate disease up to 60 percent stenosis at the mid LAD, otherwise mild to moderate disease in the rest of the coronary system, stress test done in May 2016 showing no ischemia or infarction with typical female pattern. Continue to monitor RBBB, chronic Hypertension, status post hypotensive episode on admission, currently blood pressure under good control. Continue to monitor Hyperlipidemia, controlled. Lipid/LFTs due again in June 2018, continue to monitor Mild bilateral nonobstructive carotid artery stenosis per carotid duplex Apr 2017, continue to monitor. History of non-Hodgkin's lymphoma, CLL, diagnosed and treated in 2003. Currently seeing and followed by Dr. Rayna Youssef, discussed the management plan with Dr. Durham. Cespedes's esophagus History of one episode of atrial fibrillation, continued be maintained in sinus rhythm. Continue to monitor. Clinical Quality Measures DVT/VTE Risk/Contraindication: Risk Factor Score Per Nursin RFS Level Per Nursing on Admit: 4+=Very High Contraindications-Pharm: Other *list below* Contraindications-Mechi: Other *list below* Other: platetlets 12 BAL LIGHT MD Nov 14, 2017 14:48
[2017-11-14] MEDS: LACTULOSE SYRUP 10GM/15ML (ENULOSE) 30ML UDC PO SCH (20:14)
[2017-11-15] VITALS: BP 158/84
[2017-11-15 04:00] VITALS: BP 138/62
--- NOTE | 2017-11-15 05:50 | Pulmonary Progress Note ---
Subjective Time Seen by Provider: 05:49 Subjective/Events-last exam No complications noted. Focused Exam Time of Focused Exam: 11:10 Exam Exam Vital Signs Date Time Temp Pulse Resp B/P (MAP) Pulse Ox O2 Delivery O2 Flow Rate FiO2 11/15/17 00:00 97.6 92 15 158/84 (108) 90 Nasal Cannula 2.00 11/14/17 20:03 Nasal Cannula 2.00 11/14/17 20:00 97.4 91 16 153/78 (103) 92 Nasal Cannula 2.00 11/14/17 20:00 Nasal Cannula 2.00 11/14/17 16:00 98.3 95 18 139/75 (96) 95 Nasal Cannula 2.00 11/14/17 16:00 98.3 93 131/67 94 Nasal Cannula 2.00 11/14/17 14:45 97.9 89 137/72 93 Nasal Cannula 2.00 11/14/17 14:27 97.5 98 18 134/77 98 Nasal Cannula 2.00 11/14/17 12:00 98.3 96 16 128/69 (88) 96 Nasal Cannula 2.00 11/14/17 11:18 Nasal Cannula 2.00 11/14/17 08:57 Nasal Cannula 2.00 11/14/17 08:00 96.8 93 16 178/83 (114) 96 Nasal Cannula 2.00 I & O 11/15/17 07:00 Intake Total 800 ml Output Total 975 ml Balance -175 ml General Appearance: No Apparent Distress, WD/WN, Anxious (agitated ) HEENT: PERRL/EOMI, No Scleral Icterus (L), No Scleral Icterus (R), Other (dry mucus membranes) Respiratory: Lungs Clear, No Crackles, Decreased Breath Sounds, No Wheezing Cardiovascular: Regular Rate, Rhythm, Normal Peripheral Pulses, Systolic Murmur Capillary Refill: Less Than 3 Seconds Peripheral Pulses: 2+ Dorsalis Pedis (R), 2+ Left Dors-Pedis (L), 2+ Radial Pulses (R), 2+ Radial Pulses (L) Extremity: Normal Capillary Refill, No Calf Tenderness, No Pedal Edema Neurologic/Psychiatric: Alert, Normal Mood/Affect, Other (oriented to person only- pleasantly confused) Skin: Normal Color, Warm/Dry, No Mottled, Petechia (on legs) Results Lab Laboratory Tests 11/14/17 05:32 Assessment/Plan Assessment/Plan [place] - -CXR appears improved - Abx have been D/C'd Thrombotytopenia, CLL -Hemeonc following Metabolic acidosis nonanion gapped -Monitor -IVF Dementia/confusion/agitation - Risperdal 2cm LLL lung mass on last CT scan -out patient workup 232 Critical Care: Critically Ill Patient LIVE MAYEN DO Nov 15, 2017 05:50
[2017-11-15 05:56] LABS: BASOPHILS % (AUTO) 0 % (0-10); EOSINOPHILS % (AUTO) 0 % (0-10); HEMATOCRIT 30 % (35-52); LYMPHOCYTES # (AUTO) 1.5 X 10^3 (1.0-4.0); LYMPHOCYTES % (AUTO) 37 % (12-44); MEAN CORPUSCULAR HEMOGLOBIN 27 PG (25-34); MEAN CORPUSCULAR HGB CONC 33 G/DL (32-36); MEAN CORPUSCULAR VOLUME 82 FL (80-99); MONOCYTES # (AUTO) 0.3 X 10^3 (0.0-1.0); MONOCYTES % (AUTO) 8 % (0-12); NEUTROPHILS # (AUTO) 2.2 X 10^3 (1.8-7.8); NEUTROPHILS % (AUTO) 55 % (42-75); RED BLOOD COUNT 3.65 10^6/uL (4.35-5.85); RED CELL DISTRIBUTION WIDTH 15.7 % (10.0-14.5); WHITE BLOOD COUNT 4.1 10^3/uL (4.3-11.0)
[2017-11-15 06:01] LABS: PLATELET COUNT 22 10^3/uL (130-400)
[2017-11-15 06:21] LABS: BUN/CREATININE RATIO 13; CALCIUM 9.1 MG/DL (8.5-10.1); CARBON DIOXIDE 25 MMOL/L (21-32); CHLORIDE 109 MMOL/L (98-107); CREATININE SERUM 0.69 MG/DL (0.60-1.30); GFR ESTIMATED > 60; GLUCOSE 136 MG/DL (70-105); POTASSIUM 3.7 MMOL/L (3.6-5.0); SODIUM 141 MMOL/L (135-145)
[2017-11-15 08:00] VITALS: BP 121/58
--- NOTE | 2017-11-15 08:03 | Cardiology Progress Note ---
Subjective Date Seen by Provider: Nov 15, 2017 Time Seen by Provider: 07:58 Subjective/Events-last exam Patient is in bed, feeling better today Review of Systems General: No Chills, No Night Sweats, No Fatigue, No Malaise, No Appetite, No Other HEENT: No Head Aches, No Visual Changes, No Eye Pain, No Ear Pain, No Dysphasia , No Sinus Congestion, No Post Nasal Drip, No Sore Throat, No Other Pulmonary: No Dyspnea, No Cough, No Pleuritic Chest Pain, No Other Cardiovascular: No: Chest Pain, Palpitations, Orthopnea, Paroxysmal Noc. Dyspnea, Edema, Lt Headedness, Other Focused Exam Time of Focused Exam: 11:10 Objective-Cardiology Exam Last Set of Vital Signs Vital Signs 11/15/17 04:00 Temp 97.6 Pulse 81 Resp 16 B/P (MAP) 138/62 (87) Pulse Ox 91 O2 Delivery Nasal Cannula O2 Flow Rate 2.00 Capillary Refill : Less Than 3 Seconds I&O Intake and Output 11/15/17 00:00 Intake Total 3800 ml Output Total 1625 ml Balance 2175 ml Intake Oral 1000 ml IV Total 2800 ml Output Urine Total 1625 ml # Voids 3 # Bowel Movements 3 General: Alert, Cooperative, Mild Distress HEENT: Atraumatic, PERRLA Neck: Supple, No JVD, No Thyromegaly Lungs: Clear to Auscultation, Normal Air Movement Heart: Regular Rate, Normal S1, Normal S2, No Murmurs, Other (systolic murmur at the left sternal border) Abdomen: Normal Bowel Sounds, Soft, No Tenderness, No Hepatosplenomegaly, No Masses Extremities: No Clubbing, No Cyanosis Skin: No Breakdown, No Significant Lesion Neuro: Normal Speech, Normal Tone Psych/Mental Status: Mood NL Results Lab Laboratory Tests 11/15/17 05:36 A/P-Cardiology Admission Diagnosis Change in mental status Thrombocytopenia Pulmonary hypertension Coronary artery disease Assessment/Plan Change in mental status with confusion and lethargy. Feeling better today. Continue to monitor Thrombocytopenia, secondary to chemotherapy, followed and managed by Dr. Youssef. Acute renal insufficiency, renal function are monitored at this time. Continue with IV fluid and monitor closely Severe pulmonary hypertension with right ventricular strain pattern, CT scan results were reviewed appeared to have lymph node compressing the pulmonary artery and resulting in right heart chamber strain and dilatation, continue to monitor at this time. No changes are recommended Coronary artery disease, most recent cardiac catheterization December 2007 showing heavily calcified LAD with mild to moderate disease up to 60 percent stenosis at the mid LAD, otherwise mild to moderate disease in the rest of the coronary system, stress test done in May 2016 showing no ischemia or infarction with typical female pattern. Continue to monitor RBBB, chronic Hypertension, status post hypotensive episode on admission, currently blood pressure under good control. Continue to monitor Hyperlipidemia, controlled. Lipid/LFTs due again in June 2018, continue to monitor Mild bilateral nonobstructive carotid artery stenosis per carotid duplex Apr 2017, continue to monitor. History of non-Hodgkin's lymphoma, CLL, diagnosed and treated in 2003. Currently seeing and followed by Dr. Rayna Youssef, discussed the management plan with Dr. Durham. Cespedes's esophagus History of one episode of atrial fibrillation, continued be maintained in sinus rhythm. Continue to monitor. Clinical Quality Measures DVT/VTE Risk/Contraindication: Risk Factor Score Per Nursin RFS Level Per Nursing on Admit: 4+=Very High Contraindications-Pharm: Other *list below* Contraindications-Mechi: Other *list below* Other: platetlets 12 BAL LIGHT MD Nov 15, 2017 08:03
[2017-11-15] MEDS ORDERED: amLODIPine 5 MG (NORVASC) TAB PO SCH (09:00)
[2017-11-15] MEDS ORDERED: PANTOPRAZOLE 40 MG (PROTONIX) TAB PO SCH (09:00)
[2017-11-15] MEDS: risperiDONE 0.25 MG (RisperDAL) TAB PO SCH (09:44)
[2017-11-15] MEDS: LACTULOSE SYRUP 10GM/15ML (ENULOSE) 30ML UDC PO SCH (09:47)
[2017-11-15] MEDS ORDERED: AMLO5TAB2 PO (10:55)
--- NOTE | 2017-11-15 10:58 | D/C HH Face to Face Order ---
D/C Face to Face Orders Instructions for Patient Patient Instructions/FollowUp: Dr Caldwell next week Dr Youssef in 1 week Physician to follow Patient: Dr Caldwell Discharge Diet for Home: No Restrictions Patient Problems: Thrombocytopenia CLL Hypoxia chronic requiring home O2 Patient Data-Allergies,Ht & Wt Patient Allergies: Coded Allergies: No Known Drug Allergies (Verified , 09/21/08) Height (Feet): 5 Height (Inches): 2.00 Weight (Pounds): 140 Weight (Ounces): 6.2 Home Health Need/Face to Face Date of Face to Face: Nov 15, 2017 Clinical Findings: Generalized weakness and fatigue, Shortness of breath I have seen Pt [id number]: Yes Discharged To: Home Diagnosis/Conditions: Thrombocytopenia CLL Hypoxia chronic requiring home O2 Problems/Diagnosis/Condition: Patient is Homebound due to: CognItive deficits, Muscle weakness, Shortness of breath/distress Homebound Status Due to the above stated illness, injury or surgical procedure (medical condition or diagnosis) and associated clinical findings, the patient is homebound because of his/her inability to leave home except with aid of a supportive device and/or person AND leaving the home requires a considerable and taxing effort or is medically contraindicated. Pt req the following assistanc: Walker Home Health Nursing Orders Home Health Services Order: Nursing Services, Security Door Installer-Evaluate & Treat, Physical Therapy-Evaluate & Treat Home Health Infusion Therapy Line Type: Saline Lock Site Location: Wrist Certify Stmt I certify that this patient is under my care and that I, a nurse practitioner or a physician; a technology assistant working with me, had a face to face encounter that - meets the physician face to face encounter requirements with this patient as dated. WINTER RADFORD DO Nov 15, 2017 10:58
--- NOTE | 2017-11-15 10:59 | Discharge Summary-Hospitalist ---
Diagnosis/Chief Complaint Date of Admission Nov 10, 2017 at 22:38 Date of Discharge Discharge Date: Nov 15, 2017 Admission Diagnosis Septic Shock Discharge Diagnosis Chart Review: Platelet count 9000 status post one but platelets given yesterday Hgb 9.5 CMP normal BP elevated, will start [facility] medical aide: Pt did not get blood until last night, the blood here was compromised, so they had to get another bag Dr. Youssef is on board Pt is able to get up to chair Pt is awake this am, but slept all day yesterday. Pt had not slept for three days before that. PT strengthening will likely help Pt still has Jerry Pt Interview: Pt states she feels she is doing better. Pt was informed that PT will be in to work with her Pt was informed that I will confer with Dr. Youssef Pt confirms eating and drinking okay Pt believes she had BM, no blood in stool noticed Physical exam stable. Lung function diminished Pt denies experiencing pain Pt was encouraged to ambulate Pt's confirmed nose bleed yesterday Pt lives with , will help her when she returns home. was present upon interview Afebrile, vital signs stable except for blood pressure elevation, frail, debilitated, family at bedside Regular rate and rhythm, clear to auscultation bilaterally but diminished in the bases bilaterally No edema normal range of motion Assessment: Severe thrombocytopenia with subtle epistaxis noted status post one unit of platelets given yesterday and resulted in 9000 platelet count today Severe debility starting physical therapy and may need skilled treatment or home health Delirium with baseline mild dementia Hypertension [id number] Constipation Plan: IS to prevent a pneumonia Lactulose Confer with Dr. Youssef PT Swingbed eval Monitor closely but overall prognosis is poor Scribed by Ele Gar under direct supervision of Dr. Angela Radford. (1) Septic shock Status: Acute Assessment & Plan: Febrile of 101.8 with tachycardia with pulse of 104 on arrival to [facility] Lactic acid was elevated there along with T Bili qulaifying at severe sepsis BP on arrival was 102/46 BP dropped to a systolic in the 80s there per report 30cc/kg bolus started Blood cultures obtained at OSH Started on Zosyn/Vanc After 2L her blood pressure again dropped to systolic in the 80s during transport per EMS report Will continue IV fluid resuscitation and get second peripheral line Has a 20G IV in right hand but needs IV abx, platelets, fluids, and pressors I called Dr Munoz at [phone] in regards to need for central line- he requested attempting to place secondary peripheral above the AC and transfusing platelets to make central line access safer supervisor intelligence analyst and RN at bedside attempting peripheral line currently (2) KAYE (acute kidney injury) Status: Resolved Assessment & Plan: Creatinine returned to baseline today Continue to monitor I/O (3) Pneumonia Status: Acute Assessment & Plan: Chest XR at OSH read at pneumonia Will continue Vanc/Zosyn (4) Thrombocytopenia Status: Acute Assessment & Plan: s/p 1 unit plts Up to 12 Hematology consulted, appreciate recs (5) Pulmonary hypertension Status: Acute Assessment & Plan: New diagnosis during last admission Likely due to hilar adenopathy from CLL On palliative chemo- she is unsure of when last chemo cycle was (6) CLL (chronic lymphocytic leukemia) Status: Chronic Assessment & Plan: Follows with Dr Youssef Was contacted by STUDENT ACCOUNTS MANAGER at [facility]- will consult (7) Dementia Status: Chronic Assessment & Plan: Pleasantly confused Family reports confusion worse over past 2 days Appears baseline to me from last admission (8) Counseling regarding end of life decision making Assessment & Plan: Discussed severity of illness and complex decisions regarding treatment of infection and thrombocytopenia Family understands guarded status They state she would want to be a full code- order placed If continues to worsen would benefit from palliative education (9) Prophylactic measure Assessment & Plan: SCDs only for thrombocytopenia NS at 100cc/hr CLD Discharge Summary Discharge Physical Exam Allergies: Coded Allergies: No Known Drug Allergies (Verified , 09/21/08) Vitals & I&Os Vital Signs Date Time Temp Pulse Resp B/P (MAP) Pulse Ox O2 Delivery O2 Flow Rate FiO2 11/15/17 14:30 94 16 108/59 96 Nasal Cannula 2.00 11/15/17 12:00 98.0 General Appearance: Alert, Cooperative, Other (Poor memory recall noted) HEENT: Atraumatic, PERRLA Respiratory: Clear to Auscultation, Normal Air Movement Cardiovascular: Regular Rate, Normal S1 Abdominal: Normal Bowel Sounds Neuro: Normal Gait, Normal Speech, Strength at 5/5 X4 Ext Psych/Mental Status: Mental Status NL, Mood NL Hospital Course Hospital course: Patient had a very lengthy hospital course considering her diagnosis was septic shock. She was placed on Zosyn and vancomycin empirically and she stabilized and improved after fluid resuscitation. Acute kidney injury resolved with IV fluid. Severe thrombocytopenia noted Dr. Durham was consulted considering treatment for CLL had been previously tolerated. Patient had no bleeding episodes during hospital stay. Overall she was able to recover but mental status with cognitive deficit noted consistent with an overall decline in a majority of her organ systems and I predict her prognosis to be extremely poor. She lives with her son and a walker was provided along with oxygen at 2 L continuous and will have close follow-up with Dr. Heredia and Dr. Durhma but overall prognosis extremely poor. She was placed on amlodipine 5 MG daily for hypertension [id number] which had good results at time of discharge. She was able to participate in physical therapy was able to walk around enough to return home and everyone was in agreement with the plan. Labs (last 24 hrs) Laboratory Tests 11/15/17 05:36: White Blood Count 4.1L, Red Blood Count 3.65L, Hemoglobin 10.0L, Hematocrit 30L , Mean Corpuscular Volume 82, Mean Corpuscular Hemoglobin 27, Mean Corpuscular Hemoglobin Concent 33, Red Cell Distribution Width 15.7H, Platelet Count 22*L, Mean Platelet Volume , Neutrophils (%) (Auto) 55, Lymphocytes (%) (Auto) 37, Monocytes (%) (Auto) 8, Eosinophils (%) (Auto) 0, Basophils (%) (Auto) 0, Neutrophils # (Auto) 2.2, Lymphocytes # (Auto) 1.5, Monocytes # (Auto) 0.3, Eosinophils # (Auto) 0.0, Basophils # (Auto) 0.0, Sodium Level 141, Potassium Level 3.7, Chloride Level 109H, Carbon Dioxide Level 25, Anion Gap 7, Blood Urea Nitrogen 9, Creatinine 0.69, Estimat Glomerular Filtration Rate > 60, BUN/ Creatinine Ratio 13, Glucose Level 136H, Calcium Level 9.1 11/15/17 12:07: Lab Scanned Report Transfusion Reaction Form Microbiology 11/10/17 MRSA Screen - Final, Complete MRSA not isolated Patient resulted labs reviewed. Pending Labs Imaging: Reviewed Imaging Films Discussion & Recommendations Discharge Planning: <30 minutes discharge planning Discharge Home Medications: Active Scripts Active Amlodipine Besylate 5 Mg Tablet 5 Mg PO DAILY Reported Allopurinol 300 Mg Tablet 300 Mg PO 1800 Aspirin EC (Aspirin) 81 Mg Tablet.dr 81 Mg PO 1800 Vitamin D3 (Cholecalciferol (Vitamin D3)) 1,000 Unit Tablet 1,000 Unit PO DAILY Fish Oil 1,200 mg Softgel ([place]-3 Fatty Acids/Fish Oil) 1 Each Capsule 1,200 Mg PO DAILY Pantoprazole Sodium 40 Mg Tablet.dr 40 Mg PO DAILY Simvastatin 40 Mg Tablet 40 Mg PO 1800 Instructions to patient/family Please see electronic discharge instructions given to patient. Clinical Quality Measures DVT/VTE Risk/Contraindication: Risk Factor Score Per Nursin RFS Level Per Nursing on Admit: 4+=Very High Contraindications-Pharm: Other *list below* Contraindications-Mechi: Other *list below* Other: platetlets 12 Copy Copies To 1: MATT HEREDIA MD Problem Qualifiers (1) Pneumonia: Pneumonia type: due to unspecified organism Laterality: left Lung location: lower lobe of lung Qualified Codes: J18.1 - Lobar pneumonia, unspecified organism (2) Dementia: Dementia type: unspecified type Dementia behavioral disturbance: without behavioral disturbance Qualified Codes: F03.90 - Unspecified dementia without behavioral disturbance ANGELA RADFORD DO Nov 15, 2017 10:59
--- NOTE | 2017-11-15 11:01 | Physical Therapy Daily Note ---
PT Daily Note-Current Subjective Patient agrees to PT. Son present. Pain Numeric Pain Scale: 0-No Pain Location: No Pain Reported Mental Status Patient Orientation: Person, Time, Situation Attachments: Oxygen Transfers Functional Bostic Measure 0=Not Assessed/NA 4=Minimal Assistance 1=Total Assistance 5=Supervision or Setup 2=Maximal Assistance 6=Modified Bostic 3=Moderate Assistance 7=Complete IndependenceIRFPAI Quality Coding Scale 6 Independent with activity with or without an assistive device 5 Patient requires set up or clean up by helper. Patient completes activity by themselves 4 Supervision or touching assist (CGA). [place] provide cues , steadying assist 3 The helper provides less than half the effort to complete the activity 2 The helper provides more than half the effort to complete the activity 1 Dependent. The helper does all the effort to complete an activity 7 Patient refused to complete or attempt activity 9 The patient did not perform the activity before the current illness or injury 88 Not attempted due to Medical conditions or safety concerns Transfers (B, C, W/C) (FIM): 6 Scootin Rollin Supine to/from Sit: 6 Sit to/from Stand: 6 Bed to/from Chair: 6 Weight Bearing Right Lower Extremity: Right Full Weight Bearing Left Lower Extremity: Left Full Weight Bearing Gait Training Gait (FIM): 6 Distance (FIM): 3=150 ft Distance: 875' Gait Level of Assist: 6 Gait Assistive Device: FWW safe and functional with FWW. Assessment Patient to dismiss to home with family on this date. PT Database Developer Goals Database Developer Goals PT Care Home Goals Time Frame: Nov 23, 2017 Transfers (B,C,W/C) (FIM): 6 Gait (FIM): 6 Gait distance (FIM): 3=150 ft Distance: 450' Gait Level of Assist: 6 Gait Assistive Device: FWW PT Plan Treatment/Plan Treatment Plan: Discontinue PT, goals met Treatment Plan: Bed Mobility, Education, Functional Activity Connor, Functional Strength, Gait, Safety, Therapeutic Exercise, Transfers Treatment Duration: Nov 23, 2017 Frequency: 6 times per week Estimated Hrs Per Day: .25 hour per day Patient and/or Family Agrees t: Yes Time/GCodes Time In: 1015 Time Out: 1025 Total Billed Treatment Time: 10 Total Billed Treatment 1 visit FA 10 min CHANCE PATEL PT Nov 15, 2017 11:01
[2017-11-15 12:00] VITALS: BP 108/59
[2017-11-15 14:30] VITALS: BP 108/59
== END 2017-11-15 14:30 | disposition home health service (06) | DRG 871 ==
LOC: ICU 22:38 → 4TH 11-12 18:45
PROVIDERS: ADMIT Family Medicine; ATTEND Family Medicine
DX: A41.9 Sepsis, unspecified organism (principal); R65.21 Severe sepsis with septic shock; J18.9 Pneumonia, unspecified organism; N17.9 Acute kidney failure, unspecified; C91.10 Chronic lymphocytic leukemia of B-cell type not having achieved remission; C85.82 Other specified types of non-Hodgkin lymphoma, intrathoracic lymph nodes; E87.2 Acidosis; D69.59 Other secondary thrombocytopenia; I77.1 Stricture of artery; I27.20 Pulmonary hypertension, unspecified; I10 Essential (primary) hypertension; I25.10 Atherosclerotic heart disease of native coronary artery without angina pectoris; R04.0 Epistaxis; E78.00 Pure hypercholesterolemia, unspecified; R91.1 Solitary pulmonary nodule; K21.9 Gastro-esophageal reflux disease without esophagitis; K59.00 Constipation, unspecified; K22.70 Barrett's esophagus without dysplasia; I45.10 Unspecified right bundle-branch block; F03.90 Unspecified dementia, unspecified severity, without behavioral disturbance, psychotic disturbance, mood disturbance, and anxiety; N81.4 Uterovaginal prolapse, unspecified; I65.23 Occlusion and stenosis of bilateral carotid arteries; Z92.21 Personal history of antineoplastic chemotherapy; Z86.79 Personal history of other diseases of the circulatory system
CPT/HCPCS: 36415; 71045; 80048; 80053; 80076; 81000; 82330; 82962; 83605; 83615; 83735; 84100; 85007; 85018; 85025; 85027; 85049; 85379; 85384; 85610; 86850; 86900; 86901; 87081; 94664; 94761

== ENCOUNTER → 2017-12-06 | Outpatient (CLI) | payer MEDICARE, OTHER ==
[~2017-12-06] MED LIST changes: +AMLO5TAB2 PO; +CATHETER FLUSH 10 ML SYR IV PRN; +IOHEXOL 350 MG/ML 100 ML (OMNIPAQUE 350) VIAL IV ONE; +NS 250 ML (IVPB) BAG IV ONE; -SPIR25TA3 PO; +SPIR25TA5 PO
--- NOTE | 2017-12-06 13:02 | Diagnostic Imaging Report ---
PROCEDURE: CT chest with contrast only. TECHNIQUE: Multiple contiguous axial images were obtained through the chest after administration of intravenous contrast. DATE: December 06, 2017. COMPARISON: Chest radiograph November 14, 2017. CT chest October 21, 2017. INDICATION: 82-year-old female, pulmonary hypertension. History of non-Hodgkin's lymphoma. FINDINGS: There is a 3 mm calcified benign left upper lobe granuloma on axial image 14. There is a peripheral nodular opacity in the left upper lobe measuring 8 mm in size on axial image 32. This is poorly marginated. This previously measured approximately 7 mm in size. There is an additional peripheral nodular opacity in the left lower lobe measuring up to 1.8 cm in extent which is unchanged on axial image [address] of October 21, 2017. There is additional peripheral nodular opacity in the left lower lobe on axial image 46, which is more prominent since comparison exam. There is no additional focal airspace consolidation. There is no pneumothorax. There is no pleural effusion. The central airways are patent. There is no identified large central pulmonary embolus. There is limited evaluation for pulmonary embolus given the timing of the contrast bolus. The heart is not grossly enlarged. There is no pericardial effusion. There are atherosclerotic calcifications. The main pulmonary artery measures 1.9 cm in diameter. This is within normal limits. There is no identified abnormally enlarged mediastinal, hilar, or axillary lymph node which meets CT size criteria for adenopathy. Previously noted areas of soft tissue attenuation in the left hilar region on prior axial image 61 are less prominent on the current exam. Previously noted bilateral multiple axillary lymph nodes and additional mediastinal and hilar lymph nodes are also significantly improved on the current exam. There is a benign left renal cyst on axial image 57, which measures 1.5 cm in size. Additional limited evaluation of the visualized portions of the upper abdomen is unremarkable. There is a low-attenuation 8 mm right thyroid nodule which is unchanged since the comparison exam. There is no identified acute bony abnormality. IMPRESSION: CT CHEST. 1. Significantly intervally improved axillary, mediastinal, and hilar adenopathy since comparison CT chest. No currently identified lymph nodes specifically meeting size criteria for adenopathy. 2. Peripheral nodular opacities in the left upper lobe and left lower lobe with slightly increased size of a nodular opacity along the left upper lobe and new areas of nodularity in the left lower lobe. Largest area of nodularity in the left lower lobe is unchanged. These are nonspecific. Neoplastic etiology is included in the differential diagnosis. Infectious and inflammatory etiology is also considered. 3. Normal caliber of the main pulmonary artery. Limited evaluation of pulmonary embolus without identified large central embolus. Dictated by: Dictated on workstation # [id number]
== END ==
LOC: RAD 10:21
PROVIDERS: ATTEND Internal Medicine Hematology & Oncology
DX: C91.10 Chronic lymphocytic leukemia of B-cell type not having achieved remission (principal); R91.8 Other nonspecific abnormal finding of lung field; I27.20 Pulmonary hypertension, unspecified; Z85.72 Personal history of non-Hodgkin lymphomas
CPT/HCPCS: 71260; 93306

== ENCOUNTER 2018-02-26 09:07 | Outpatient (RCR) | payer MEDICARE, OTHER ==
[2017-12-13 09:01] LABS: BASOPHILS % (AUTO) 0 % (0-10); EOSINOPHILS # (AUTO) 0.1 10^3/uL (0.0-0.3); EOSINOPHILS % (AUTO) 0 % (0-10); HEMATOCRIT 40 % (35-52); HEMOGLOBIN 13.4 G/DL (11.5-16.0); LYMPHOCYTES # (AUTO) 3.3 X 10^3 (1.0-4.0); LYMPHOCYTES % (AUTO) 19 % (12-44); MEAN CORPUSCULAR HEMOGLOBIN 28 PG (25-34); MEAN CORPUSCULAR HGB CONC 33 G/DL (32-36); MEAN CORPUSCULAR VOLUME 84 FL (80-99); MEAN PLATELET VOLUME 10.2 FL (7.4-10.4); MONOCYTES # (AUTO) 0.4 X 10^3 (0.0-1.0); MONOCYTES % (AUTO) 2 % (0-12); NEUTROPHILS # (AUTO) 13.8 X 10^3 (1.8-7.8); NEUTROPHILS % (AUTO) 78 % (42-75); RED CELL DISTRIBUTION WIDTH 17.6 % (10.0-14.5); WHITE BLOOD COUNT 17.5 10^3/uL (4.3-11.0)
[2017-12-13 09:03] LABS: PLATELET COUNT 43 10^3/uL (130-400)
[2017-12-13 09:19] LABS: ALBUMIN 4.2 GM/DL (3.2-4.5); BILIRUBIN,TOTAL 1.3 MG/DL (0.1-1.0); CALCIUM 9.4 MG/DL (8.5-10.1); CREATININE SERUM 0.93 MG/DL (0.60-1.30); TOTAL PROTEIN 7.8 GM/DL (6.4-8.2)
[2017-12-17 13:25] LABS: BASOPHILS % (AUTO) 0 % (0-10); EOSINOPHILS % (AUTO) 0 % (0-10); HEMATOCRIT 33 % (35-52); HEMOGLOBIN 10.7 G/DL (11.5-16.0); LYMPHOCYTES # (AUTO) 2.4 X 10^3 (1.0-4.0); LYMPHOCYTES % (AUTO) 26 % (12-44); MEAN CORPUSCULAR HEMOGLOBIN 28 PG (25-34); MEAN CORPUSCULAR HGB CONC 33 G/DL (32-36); MEAN CORPUSCULAR VOLUME 85 FL (80-99); MEAN PLATELET VOLUME 12.1 FL (7.4-10.4); MONOCYTES # (AUTO) 0.3 X 10^3 (0.0-1.0); MONOCYTES % (AUTO) 3 % (0-12); NEUTROPHILS # (AUTO) 6.7 X 10^3 (1.8-7.8); NEUTROPHILS % (AUTO) 71 % (42-75); PLATELET COUNT 68 10^3/uL (130-400); RED BLOOD COUNT 3.84 10^6/uL (4.35-5.85); RED CELL DISTRIBUTION WIDTH 17.3 % (10.0-14.5); WHITE BLOOD COUNT 9.3 10^3/uL (4.3-11.0)
[2017-12-24 09:27] LABS: BASOPHILS % (AUTO) 0 % (0-10); EOSINOPHILS # (AUTO) 0.1 10^3/uL (0.0-0.3); EOSINOPHILS % (AUTO) 0 % (0-10); HEMATOCRIT 36 % (35-52); HEMOGLOBIN 12.1 G/DL (11.5-16.0); LYMPHOCYTES % (AUTO) 22 % (12-44); MEAN CORPUSCULAR HEMOGLOBIN 28 PG (25-34); MEAN CORPUSCULAR HGB CONC 33 G/DL (32-36); MEAN CORPUSCULAR VOLUME 83 FL (80-99); MEAN PLATELET VOLUME 11.1 FL (7.4-10.4); MONOCYTES # (AUTO) 0.5 X 10^3 (0.0-1.0); MONOCYTES % (AUTO) 4 % (0-12); NEUTROPHILS # (AUTO) 9.9 X 10^3 (1.8-7.8); NEUTROPHILS % (AUTO) 74 % (42-75); PLATELET COUNT 63 10^3/uL (130-400); RED BLOOD COUNT 4.34 10^6/uL (4.35-5.85); RED CELL DISTRIBUTION WIDTH 15.9 % (10.0-14.5); WHITE BLOOD COUNT 13.5 10^3/uL (4.3-11.0)
[2018-01-01 14:22] LABS: BASOPHILS % (AUTO) 0 % (0-10); EOSINOPHILS % (AUTO) 0 % (0-10); HEMATOCRIT 37 % (35-52); HEMOGLOBIN 12.4 G/DL (11.5-16.0); LYMPHOCYTES # (AUTO) 2.7 X 10^3 (1.0-4.0); LYMPHOCYTES % (AUTO) 24 % (12-44); MEAN CORPUSCULAR HEMOGLOBIN 28 PG (25-34); MEAN CORPUSCULAR HGB CONC 33 G/DL (32-36); MEAN CORPUSCULAR VOLUME 83 FL (80-99); MEAN PLATELET VOLUME 11.3 FL (7.4-10.4); MONOCYTES # (AUTO) 0.4 X 10^3 (0.0-1.0); MONOCYTES % (AUTO) 4 % (0-12); NEUTROPHILS # (AUTO) 7.9 X 10^3 (1.8-7.8); NEUTROPHILS % (AUTO) 72 % (42-75); PLATELET COUNT 77 10^3/uL (130-400); RED BLOOD COUNT 4.49 10^6/uL (4.35-5.85); RED CELL DISTRIBUTION WIDTH 15.7 % (10.0-14.5)
[2018-01-15 09:20] LABS: BASOPHILS # (AUTO) 0.1 10^3/uL (0.0-0.1); BASOPHILS % (AUTO) 1 % (0-10); EOSINOPHILS # (AUTO) 0.1 10^3/uL (0.0-0.3); EOSINOPHILS % (AUTO) 2 % (0-10); HEMATOCRIT 36 % (35-52); LYMPHOCYTES # (AUTO) 2.5 X 10^3 (1.0-4.0); LYMPHOCYTES % (AUTO) 29 % (12-44); MEAN CORPUSCULAR HEMOGLOBIN 28 PG (25-34); MEAN CORPUSCULAR HGB CONC 34 G/DL (32-36); MEAN CORPUSCULAR VOLUME 83 FL (80-99); MEAN PLATELET VOLUME 10.3 FL (7.4-10.4); MONOCYTES # (AUTO) 0.8 X 10^3 (0.0-1.0); MONOCYTES % (AUTO) 9 % (0-12); NEUTROPHILS # (AUTO) 5.2 X 10^3 (1.8-7.8); NEUTROPHILS % (AUTO) 60 % (42-75); PLATELET COUNT 152 10^3/uL (130-400); RED CELL DISTRIBUTION WIDTH 15.2 % (10.0-14.5); WHITE BLOOD COUNT 8.6 10^3/uL (4.3-11.0)
[~2018-02-26] VITALS: Ht 157.5 cm; Wt 56.7 kg
[~2018-02-26 09:07] MED LIST changes: +ACETAMINOPHEN 325 MG TAB (TYLENOL) CANCER CTR ONE; -CATHETER FLUSH 10 ML SYR IV PRN; -IOHEXOL 350 MG/ML 100 ML (OMNIPAQUE 350) VIAL IV ONE; -NS 250 ML (IVPB) BAG IV ONE; +NS IV 500 ML (CANCER CENTER) 500 ML ONE; +diphenhydrAMINE 25 MG TAB (BENADRYL) CANCER CENTER PO ONE; +diphenhydrAMINE 50 MG/ML INJ (CANCER CENTER) ONE; +methylPREDNISolone 125 MG/2 ML (SOLU-MEDROL) CANCER CTR IV ONE; +riTUXimab 500 MG, riTUXimab FOR IV INJ CONC 100 MG in NS (IVPB) CANCER CENTER ONLY 150 ML IV SCH
[2018-02-26 09:20] LABS: BASOPHILS % (AUTO) 0 % (0-10); EOSINOPHILS # (AUTO) 0.1 10^3/uL (0.0-0.3); EOSINOPHILS % (AUTO) 1 % (0-10); HEMATOCRIT 37 % (35-52); HEMOGLOBIN 12.5 G/DL (11.5-16.0); LYMPHOCYTES # (AUTO) 3.1 X 10^3 (1.0-4.0); LYMPHOCYTES % (AUTO) 33 % (12-44); MEAN CORPUSCULAR HEMOGLOBIN 27 PG (25-34); MEAN CORPUSCULAR HGB CONC 33 G/DL (32-36); MEAN CORPUSCULAR VOLUME 80 FL (80-99); MEAN PLATELET VOLUME 10.6 FL (7.4-10.4); MONOCYTES # (AUTO) 0.7 X 10^3 (0.0-1.0); MONOCYTES % (AUTO) 7 % (0-12); NEUTROPHILS # (AUTO) 5.4 X 10^3 (1.8-7.8); NEUTROPHILS % (AUTO) 58 % (42-75); PLATELET COUNT 70 10^3/uL (130-400); RED BLOOD COUNT 4.65 10^6/uL (4.35-5.85); RED CELL DISTRIBUTION WIDTH 14.8 % (10.0-14.5); WHITE BLOOD COUNT 9.4 10^3/uL (4.3-11.0)
[2018-02-26 09:43] LABS: ALBUMIN 3.9 GM/DL (3.2-4.5); BILIRUBIN,TOTAL 1.1 MG/DL (0.1-1.0); CALCIUM 9.4 MG/DL (8.5-10.1); POTASSIUM 3.8 MMOL/L (3.6-5.0); TOTAL PROTEIN 6.5 GM/DL (6.4-8.2)
== END 2018-03-13 | disposition home or self-care (01) ==
LOC: ONC 09:07
PROVIDERS: ATTEND Internal Medicine Hematology & Oncology
DX: Z51.11 Encounter for antineoplastic chemotherapy (principal); C91.10 Chronic lymphocytic leukemia of B-cell type not having achieved remission; C83.30 Diffuse large B-cell lymphoma, unspecified site; D69.6 Thrombocytopenia, unspecified; I25.10 Atherosclerotic heart disease of native coronary artery without angina pectoris; I65.23 Occlusion and stenosis of bilateral carotid arteries; I10 Essential (primary) hypertension; E78.5 Hyperlipidemia, unspecified; Z79.899 Other long term (current) drug therapy
CPT/HCPCS: 36415; 80053; 83615; 85025; 96375; 96413; 96415; 99213

== ENCOUNTER 2018-03-25 09:49 | Outpatient (RCR) | payer MEDICARE, OTHER ==
[~2018-03-25 09:49] MED LIST changes: -ACETAMINOPHEN 325 MG TAB (TYLENOL) CANCER CTR ONE; -AMLO5TAB2 PO; +AMLO5TAB7 PO; -NS IV 500 ML (CANCER CENTER) 500 ML ONE; -diphenhydrAMINE 25 MG TAB (BENADRYL) CANCER CENTER PO ONE; -diphenhydrAMINE 50 MG/ML INJ (CANCER CENTER) ONE; -methylPREDNISolone 125 MG/2 ML (SOLU-MEDROL) CANCER CTR IV ONE; -riTUXimab 500 MG, riTUXimab FOR IV INJ CONC 100 MG in NS (IVPB) CANCER CENTER ONLY 150 ML IV SCH
[2018-03-25 10:08] LABS: BASOPHILS # (AUTO) 0.1 10^3/uL (0.0-0.1); BASOPHILS % (AUTO) 1 % (0-10); EOSINOPHILS # (AUTO) 0.2 10^3/uL (0.0-0.3); EOSINOPHILS % (AUTO) 2 % (0-10); HEMATOCRIT 40 % (35-52); HEMOGLOBIN 12.8 G/DL (11.5-16.0); LYMPHOCYTES # (AUTO) 2.5 X 10^3 (1.0-4.0); LYMPHOCYTES % (AUTO) 30 % (12-44); MEAN CORPUSCULAR HEMOGLOBIN 26 PG (25-34); MEAN CORPUSCULAR HGB CONC 32 G/DL (32-36); MEAN CORPUSCULAR VOLUME 80 FL (80-99); MEAN PLATELET VOLUME 11.2 FL (7.4-10.4); MONOCYTES # (AUTO) 0.6 X 10^3 (0.0-1.0); MONOCYTES % (AUTO) 7 % (0-12); NEUTROPHILS # (AUTO) 5.1 X 10^3 (1.8-7.8); NEUTROPHILS % (AUTO) 60 % (42-75); PLATELET COUNT 79 10^3/uL (130-400); RED BLOOD COUNT 4.92 10^6/uL (4.35-5.85); RED CELL DISTRIBUTION WIDTH 15.4 % (10.0-14.5); WHITE BLOOD COUNT 8.5 10^3/uL (4.3-11.0)
[2018-03-25 10:28] LABS: ALBUMIN 4.1 GM/DL (3.2-4.5); BILIRUBIN,TOTAL 1.2 MG/DL (0.1-1.0); CALCIUM 9.6 MG/DL (8.5-10.1); CREATININE SERUM 1.05 MG/DL (0.60-1.30); MAGNESIUM 2.1 MG/DL (1.8-2.4); POTASSIUM 3.9 MMOL/L (3.6-5.0); TOTAL PROTEIN 7.1 GM/DL (6.4-8.2)
== END 2018-04-19 | disposition home or self-care (01) ==
LOC: ONC 09:49
PROVIDERS: ATTEND Internal Medicine Hematology & Oncology
DX: C91.10 Chronic lymphocytic leukemia of B-cell type not having achieved remission (principal); C83.30 Diffuse large B-cell lymphoma, unspecified site; D69.6 Thrombocytopenia, unspecified; I25.10 Atherosclerotic heart disease of native coronary artery without angina pectoris; I65.23 Occlusion and stenosis of bilateral carotid arteries; I10 Essential (primary) hypertension; E78.5 Hyperlipidemia, unspecified; Z79.899 Other long term (current) drug therapy
CPT/HCPCS: 80053; 82378; 83735; 85025; 99213

== ENCOUNTER → 2018-05-20 | Outpatient (CLI) | payer MEDICARE, OTHER | LOC: LAB 10:14 | PROVIDERS: ATTEND Internal Medicine | DX: E78.5 Hyperlipidemia, unspecified (principal); Z79.899 Other long term (current) drug therapy | CPT/HCPCS: 36415; 80061; 84443 ==

== ENCOUNTER → 2018-05-22 | Outpatient (CLI) | payer MEDICARE, OTHER ==
[~2018-05-22] MED LIST changes: +IOHEXOL 350 MG/ML 100 ML (OMNIPAQUE 350) VIAL IV ONE; +NS 250 ML (IVPB) BAG IV ONE
--- NOTE | 2018-05-22 09:04 | Diagnostic Imaging Report ---
PROCEDURE: CT chest with contrast only. TECHNIQUE: Multiple contiguous axial images were obtained through the chest after administration of intravenous contrast. INDICATION: Difficulty breathing and cough. Comparison is made with prior CT chest from 12/06/2017. No axillary lymphadenopathy is identified. No pathologically enlarged mediastinal or hilar lymph nodes are identified. Patient has developed a moderate-sized pericardial effusion. There are also developing small bilateral pleural effusions, slightly greater on the right. Ascending thoracic aorta remains prominent but stable in size at approximately 3.7 cm. No dissection is seen. Overall size and configuration of the pulmonary arterial system is similar to prior CTs. Left main pulmonary artery is narrowed, similar to prior study. The lobar and segmental branches are small but do appear to be opacified. No definite thromboemboli are seen. Previously noted subpleural opacity in the left upper lobe is ill-defined and less mass-like. This has the appearance of some minimal infiltrate. An opacity in the subpleural location of the posterior lateral left lower lobe is a 1.7 cm compared with 1.8 cm. This does appear to be slightly more consolidated or nodular in appearance. Continued close followup is recommended. Additional nodule more inferiorly in the left lower lobe is obscured due to developing pleural effusions and atelectasis. Right lung appears to be clear. The upper abdomen is unremarkable. IMPRESSION: 1. Development of moderate pericardial effusion and bilateral pleural effusions when compared with prior CT from 12/06/2017. No definite thoracic lymphadenopathy is seen. No definite pulmonary emboli are seen. Left lower lobe previously described opacity is slightly more nodular on today's study remains indeterminate. PET scan may be useful for further evaluation. If no PET scan is performed, short interval followup with repeat CT in one to two months could be performed. Dictated by: Dictated on workstation # [id number]
== END ==
LOC: RAD 08:02
PROVIDERS: ATTEND Internal Medicine Hematology & Oncology
DX: C91.10 Chronic lymphocytic leukemia of B-cell type not having achieved remission (principal); I31.3 Pericardial effusion (noninflammatory); J90 Pleural effusion, not elsewhere classified
CPT/HCPCS: 71260

== ENCOUNTER → 2018-05-23 | Outpatient (CLI) | payer MEDICARE, OTHER ==
[~2018-05-23] MED LIST changes: -IOHEXOL 350 MG/ML 100 ML (OMNIPAQUE 350) VIAL IV ONE; -NS 250 ML (IVPB) BAG IV ONE
== END ==
LOC: CARD 09:14
PROVIDERS: ATTEND Internal Medicine Hematology & Oncology
DX: I27.20 Pulmonary hypertension, unspecified (principal); I08.1 Rheumatic disorders of both mitral and tricuspid valves; R06.02 Shortness of breath; R05 Cough; C91.10 Chronic lymphocytic leukemia of B-cell type not having achieved remission
CPT/HCPCS: 93306

== ENCOUNTER 2018-06-10 13:00 | Outpatient (RCR) | payer MEDICARE, OTHER ==
[2018-05-20 10:36] LABS: BASOPHILS % (AUTO) 1 % (0-10); EOSINOPHILS # (AUTO) 0.2 10^3/uL (0.0-0.3); EOSINOPHILS % (AUTO) 2 % (0-10); HEMATOCRIT 39 % (35-52); HEMOGLOBIN 12.6 G/DL (11.5-16.0); LYMPHOCYTES # (AUTO) 1.7 X 10^3 (1.0-4.0); LYMPHOCYTES % (AUTO) 22 % (12-44); MEAN CORPUSCULAR HEMOGLOBIN 26 PG (25-34); MEAN CORPUSCULAR HGB CONC 32 G/DL (32-36); MEAN CORPUSCULAR VOLUME 81 FL (80-99); MONOCYTES # (AUTO) 0.5 X 10^3 (0.0-1.0); MONOCYTES % (AUTO) 7 % (0-12); NEUTROPHILS # (AUTO) 5.4 X 10^3 (1.8-7.8); NEUTROPHILS % (AUTO) 69 % (42-75); PLATELET COUNT 54 10^3/uL (130-400); RED BLOOD COUNT 4.83 10^6/uL (4.35-5.85); RED CELL DISTRIBUTION WIDTH 18.2 % (10.0-14.5); WHITE BLOOD COUNT 7.8 10^3/uL (4.3-11.0)
[2018-05-20 10:55] LABS: BILIRUBIN,TOTAL 1.3 MG/DL (0.1-1.0); CALCIUM 9.3 MG/DL (8.5-10.1); CREATININE SERUM 0.97 MG/DL (0.60-1.30); TOTAL PROTEIN 6.8 GM/DL (6.4-8.2)
[2018-06-10 13:16] LABS: BASOPHILS # (AUTO) 0.1 10^3/uL (0.0-0.1); BASOPHILS % (AUTO) 1 % (0-10); EOSINOPHILS # (AUTO) 0.3 10^3/uL (0.0-0.3); EOSINOPHILS % (AUTO) 4 % (0-10); HEMATOCRIT 40 % (35-52); LYMPHOCYTES % (AUTO) 24 % (12-44); MEAN CORPUSCULAR HEMOGLOBIN 26 PG (25-34); MEAN CORPUSCULAR HGB CONC 32 G/DL (32-36); MEAN CORPUSCULAR VOLUME 80 FL (80-99); MEAN PLATELET VOLUME 12.1 FL (7.4-10.4); MONOCYTES # (AUTO) 0.6 X 10^3 (0.0-1.0); MONOCYTES % (AUTO) 7 % (0-12); NEUTROPHILS # (AUTO) 5.3 X 10^3 (1.8-7.8); NEUTROPHILS % (AUTO) 64 % (42-75); PLATELET COUNT 58 10^3/uL (130-400); RED BLOOD COUNT 5.04 10^6/uL (4.35-5.85); RED CELL DISTRIBUTION WIDTH 17.1 % (10.0-14.5); WHITE BLOOD COUNT 8.3 10^3/uL (4.3-11.0)
== END 2018-08-18 | disposition home or self-care (01) ==
LOC: ONC 13:00
PROVIDERS: ATTEND Internal Medicine Hematology & Oncology
DX: C91.10 Chronic lymphocytic leukemia of B-cell type not having achieved remission (principal); D69.6 Thrombocytopenia, unspecified; R06.02 Shortness of breath; R59.0 Localized enlarged lymph nodes; I27.20 Pulmonary hypertension, unspecified; I25.10 Atherosclerotic heart disease of native coronary artery without angina pectoris; I10 Essential (primary) hypertension; E78.2 Mixed hyperlipidemia; Z79.82 Long term (current) use of aspirin; Z79.899 Other long term (current) drug therapy
CPT/HCPCS: 36415; 80053; 85025; 99213

== ENCOUNTER → 2018-07-09 | Outpatient (CLI) | payer MEDICARE, OTHER ==
[2018-07-09 13:24] LABS: ALBUMIN 4.3 GM/DL (3.2-4.5); BILIRUBIN,TOTAL 1.6 MG/DL (0.1-1.0); CALCIUM 9.6 MG/DL (8.5-10.1); CREATININE SERUM 0.98 MG/DL (0.60-1.30); POTASSIUM 3.6 MMOL/L (3.6-5.0); TOTAL PROTEIN 7.1 GM/DL (6.4-8.2)
== END ==
LOC: LAB 12:34
PROVIDERS: ATTEND Nurse Practitioner Family
DX: D69.6 Thrombocytopenia, unspecified (principal); R91.1 Solitary pulmonary nodule; R09.02 Hypoxemia; J90 Pleural effusion, not elsewhere classified
CPT/HCPCS: 36415; 80053